=== PATIENT | female | born 1930 | race Caucasian/White ===

== ENCOUNTER 2019-07-20 20:08 | Inpatient (IN) | payer MEDICARE, MEDICAID ==
[~2019-07-20] VITALS: Ht 154.9 cm; Wt 56.2 kg
--- NOTE | 2019-07-20 20:10 | NUR ---
IV LINE ESTABLISHED, BLOOD DRAWN AND SENT TO LAB.
--- NOTE | 2019-07-20 20:12 | NUR ---
CLARA. C/O "FAMILY STATING:PT DESATURATING AT HOME 78%, PT IS AAOX1 RESPONDS TO TOUCH, ON VENT VIA TRACH, HOOKED TO MONITOR. KEPT RESTED AND COMFORTABLE, WILL CONTINUE TO MONITOR.
--- NOTE | 2019-07-20 20:16 | NUR ---
RT AT BEDSIDE FOR VENT SET UP.
[2019-07-20] MEDS ORDERED: LEVE500T9 GT (20:17)
[2019-07-20] MEDS ORDERED: ENOX40DI SUBCUT (20:18)
[2019-07-20] MEDS ORDERED: ASPI-605 GT (20:18)
[2019-07-20] MEDS ORDERED: MULT1TAB73 GT (20:19)
--- NOTE | 2019-07-20 20:25 | NUR ---
DR. SULLIVAN AT BEDSIDE FOR EVAL.
--- NOTE | 2019-07-20 20:40 | NUR ---
RT NOTE LATE ENTRY: Pt rec'd on mech vent on SIMV settings given from [employer]. Pt's pressure support adjusted to meet pt's ventilatory demand per md orders. No resp distress or sob noted. Pt sx'd for small amt of thick yellow secretions. Alarms are set and audible. Vent plugged into red outlet. Ambu bag bedside. Will continue to monitor. Addendum: 07/20/19 at 2122 by DILAN TUTTLE RT Amended: Links added.
[2019-07-20 21:03] LABS: BASOPHILS % (AUTO) 0.9 % (0.0-2.0); EOSINOPHILS % (AUTO) 4.1 % (0.0-6.0); HEMATOCRIT 32 % (33-45); HEMOGLOBIN 10.5 g/dL (11.5-14.8); LYMPHOCYTES # (AUTO) 0.9 /CMM (0.8-4.8); LYMPHOCYTES % (AUTO) 24.6 % (20.0-44.0); MEAN CORPUSCULAR HGB CONC 33 g/dl (31.0-36.0); MEAN CORPUSCULAR VOLUME 94 fL (82-100); MONOCYTES # (AUTO) 0.2 /CMM (0.1-1.30); MONOCYTES % (AUTO) 4.3 % (2.0-12.0); NEUTROPHILS # (AUTO) 2.4 /CMM (1.8-8.9); NEUTROPHILS % (AUTO) 66.1 % (43.0-81.0); PLATELET COUNT (AUTO) 228 /CMM (150-450); RED BLOOD CELL COUNT(AUTO) 3.41 MIL/uL (4.0-5.2); WHITE BLOOD COUNT (AUTO) 3.6 K/uL (4.3-11.0)
--- NOTE | 2019-07-20 21:11 | NUR ---
SHERIFFS OFFICER AT BEDSIDE FOR XRAY.
[2019-07-20 21:30] LABS: ALANINE AMINOTRANSFERASE 25 U/L (12-78); ALBUMIN 2.6 g/dL (3.4-5.0); ALKALINE PHOSPHATASE 401 U/L (46-116); ASPARTATE AMINOTRANSFERASE 29 U/L (15-37); B-TYPE NATRIURETIC PEPTIDE 4632 PG/ML (0-125); BILIRUBIN,DIRECT 0.1 mg/dL (0.0-0.2); BILIRUBIN,TOTAL 0.3 mg/dL (0.2-1.0); CARBON DIOXIDE 30 mmol/L (21-32); CHLORIDE 99 mmol/L (98-107); CREATININE 0.5 mg/dL (0.6-1.3); GLUCOSE 254 mg/dL (74-106); POTASSIUM 4.7 mmol/L (3.5-5.1); SODIUM SERUM 133 mmol/L (136-145); TOTAL PROTEIN, SERUM 8.3 g/dL (6.4-8.2); UREA NITROGEN, BLOOD 27 mg/dL (7-18)
[2019-07-20] MEDS ORDERED: VANCOMYCIN 1 GM in IV D5W 250 ML IV ONE (22:00)
[2019-07-20] MEDS ORDERED: FUROSEMIDE 40 MG/4 ML VIAL IV ONE (22:00)
[2019-07-20] MEDS ORDERED: CEFEPIME 1 GM VIAL IV ONE (22:00)
[2019-07-20] MEDS ORDERED: VANCOMYCIN 1 GM VIAL ONE (22:09)
[2019-07-20] MEDS ORDERED: CEFEPIME 1 GM VIAL ONE (22:09)
[2019-07-20] MEDS ORDERED: FUROSEMIDE 40 MG/4 ML VIAL ONE (22:09)
[2019-07-20] MEDS ORDERED: IV NS 0.9% 0 ML IV ONE (22:13)
[2019-07-20] MEDS ORDERED: CT SWABBABLE VALVE TRANS SET 1 EA INFUS.SET MC ONE (22:13)
[2019-07-20] MEDS ORDERED: IOHEXOL-350 100 ML VIAL IV ONE (22:13)
--- NOTE | 2019-07-20 22:28 | NUR ---
PT REFUSED CT ANGIOGRAM, AWARE.
--- NOTE | 2019-07-20 22:40 | NUR ---
REPORT GIVEN TO CHALINO BRYANT FOR ABELINO.
[2019-07-20] MEDS ORDERED: ONDANSETRON HCL/PF 4 MG/2 ML VIAL IVP PRN (23:00)
[2019-07-20] MEDS ORDERED: ZOLPIDEM TARTRATE 5 MG TABLET GT PRN (23:00)
[2019-07-20] MEDS ORDERED: HYDROCODONE/APAP 10/325MG 1 EA TABLET GT PRN (23:00)
[2019-07-20] MEDS ORDERED: ACETAMINOPHEN 325 MG TABLET MC PRN (23:00)
[2019-07-20] MEDS ORDERED: ENOXAPARIN SODIUM 30 MG/0.3 ML DISP.SYRIN SQ SCH (23:00)
[2019-07-20] MEDS ORDERED: MAGNESIUM HYDROXIDE 30 ML UDC PO PRN (23:00)
[2019-07-20] MEDS ORDERED: HYDROCODONE/APAP 5/325MG 1 EACH TABLET GT PRN (23:00)
[2019-07-20] MEDS ORDERED: MAG HYDROX/AL HYDROX/SIMETH 30 ML UDC PO PRN (23:00)
[2019-07-20] MEDS ORDERED: CEFEPIME 1 GM in IV D5W 50 ML IV SCH (23:00)
--- NOTE | 2019-07-20 23:00 | NUR ---
TELE/RESIDENTIAL FEE APPRAISER NOTES RECEIVED PATIENT ON A GURNEY,RT ARRIVED WITH ER NURSE ON A GURNEY ON MECHANICAL VENT WITH PRESCRIBED SETTING, ADMITING MD MARTHA IBANEZ DISCUSSED PLAN OF CARE WITH FAMILY AT THE ER AND ARRIVED ON THE UNIT WITH SOME CONCERNS FAMILY PREFERENCE TO BE TRANSFERED TOMORROW AM AT [facility] WITH MD DR. RAFL JHA. PATIETN WITH DX OF ACUTE HYPOXIIC RF AND TO RULE OUT PE. FAMILY DAUGHTER INVOLVE WITH CARE AND HAVE VERBALIZED AND INSTRUCTED TREATMENTS WITH RN AND MD. UNABLE TO HAVE SOME TEST FAMILY POSTPONED PULMONARY ANGIOGRAM WITH CONTRAST, AND MD ALSO SUGGESTED TO RULE OUT PE, A DQ/VQ SCAN WHICH PER RADIOLOGISTRANICK CAN NOT BE DONE ON A MECHANICAL DEPENDENT PATIENT, MD AND FAMILY MADE AWARE.GTUBE FEEDING STARTED WITH HOME FEEDING PROVIDED BY PATIENT, ALSO [employer] MATTRESS ORDER, INFORM NIGHT SUPERVISIOR FOR ORDER REQUEST. WOUND CHECK AND TREATMENT PROVIDED. ORDER FOR.
[2019-07-20] MEDS ORDERED: LEVALBUTEROL HCL NEB 1.25 MG/0.5 ML VIAL.NEB NEB PRN (23:30)
[2019-07-21] VITALS: BP_SYST 131; BP_SYST 69; BP_DIAS 44
--- NOTE | 2019-07-21 | NUR ---
tele/rn notes PATIENT ON TELE AT SY 78. PATIENT DAUGHTER AT BEDSIDE, INVOLVE WITH CARE, SKIN ASSESSED REQUIRING WOUND CONSULT. ALSO FOLLOW UP WITH BAGGAGE HANDLER FOR [employer] MATTRESS AND REQUESTING MEDICATION TO BED GIVEN AND MONITOIRNG BLOOD SUGAR WITH SLIDING SCALE.
[2019-07-21] MEDS ORDERED: LORAZEPAM INJ 2 MG/ML VIAL IV PRN (00:30)
[2019-07-21] MEDS ORDERED: INSULIN REGULAR, HUMAN 100 UNIT/ML 3 ML VIAL SQ PRN (03:30)
[2019-07-21] MEDS ORDERED: DEXTROSE 50%-WATER 50 ML DISP.SYRIN IV PRN ×2 (03:30→04:00)
[2019-07-21] MEDS: BLOOD SUGAR DIAGNOSTIC 1 EACH STRIP IN SCH ×4 (03:57→23:39)
[2019-07-21 04:00] VITALS: BP_SYST 110; BP_SYST 95; BP_DIAS 40; BP_DIAS 44
[2019-07-21] MEDS ORDERED: ENOXAPARIN SODIUM 30 MG/0.3 ML DISP.SYRIN SQ SCH ×2 (04:00→23:00)
--- NOTE | 2019-07-21 04:06 | NUR ---
tele/rn notes per md muñoz to change time of lovenox to be 0400 daily.
[2019-07-21] MEDS: INSULIN REGULAR, HUMAN 100 UNIT/ML 3 ML VIAL SQ PRN ×4 (04:29→23:59)
--- NOTE | 2019-07-21 05:36 | NUR ---
tele/rn notes patient requested to follow up [facility] FOR IV ANTIBIOTIC THAT CAUSES REACTION WITH SEIZURE, RN BOOK SEWING MACHINE OPERATOR MICHELLE REPORTED UNABLE TO DETERMINE , DISCUSSED WITH FAMILY AND MADE AWARE. PATIENT ALSO REQUESTED FOR SPUTUM SAMPLE AND MD CONTACTED AWAITING FOR ORDER.
[2019-07-21] MEDS ORDERED: BLOOD SUGAR DIAGNOSTIC 1 EACH STRIP IN SCH (06:00)
[2019-07-21] MEDS ORDERED: FEE PK DOSING 1 MIN EA MC ONE (06:28)
[2019-07-21] MEDS ORDERED: ALBUTEROL HALF STRENGTH 1.25 MG/3 ML VIAL.NEB NEB PRN (06:30)
[2019-07-21] MEDS ORDERED: LEVALBUTEROL HCL NEB 1.25 MG/0.5 ML VIAL.NEB NEB PRN (06:30)
--- NOTE | 2019-07-21 07:10 | NUR ---
RN NOTE FAMILY REQUESTING TRACH CARE. RT PAGED.
[2019-07-21 07:17] LABS: CHOLESTEROL 148 mg/dL (<200); HDL CHOLESTEROL 48 mg/dL (40-60); LDL 86 mg/dL (0-99); THYROID STIMULATING HORMONE 2.739 uIU/mL (0.358-3.74); TRIGLYCERIDES 82 mg/dL (30-150)
--- NOTE | 2019-07-21 07:22 | NUR ---
tele/rn notes report given to am rn for carmina.
[2019-07-21 08:00] VITALS: BP_SYST 100; BP_SYST 136; BP_DIAS 36; BP_DIAS 43
[2019-07-21] MEDS ORDERED: CEFEPIME 1 GM in IV NS 0.9% 50 ML IV SCH (08:00)
--- NOTE | 2019-07-21 08:10 | NUR ---
RN NOTE FAMILY CONCERNED ABOUT LOW B/P. MADE AWARE.
[2019-07-21 08:13] LABS: BASOPHILS % (AUTO) 0.9 % (0.0-2.0); EOSINOPHILS % (AUTO) 5.3 % (0.0-6.0); HEMATOCRIT 27 % (33-45); HEMOGLOBIN 8.8 g/dL (11.5-14.8); LYMPHOCYTES # (AUTO) 1.2 /CMM (0.8-4.8); LYMPHOCYTES % (AUTO) 24.9 % (20.0-44.0); MEAN CORPUSCULAR HGB CONC 33 g/dl (31.0-36.0); MEAN CORPUSCULAR VOLUME 92 fL (82-100); MONOCYTES # (AUTO) 0.5 /CMM (0.1-1.30); MONOCYTES % (AUTO) 11.4 % (2.0-12.0); NEUTROPHILS # (AUTO) 2.8 /CMM (1.8-8.9); NEUTROPHILS % (AUTO) 57.5 % (43.0-81.0); PLATELET COUNT (AUTO) 179 /CMM (150-450); WHITE BLOOD COUNT (AUTO) 4.8 K/uL (4.3-11.0)
[2019-07-21] MEDS: LEVETIRACETAM SOL (5 ML) 100 MG/ML UDC PO SCH ×2 (08:21→21:19)
[2019-07-21] MEDS: ASPIRIN 81 MG TAB.CHEW GT SCH (08:21)
[2019-07-21] MEDS: CEFEPIME 2 GM in IV D5W 100 ML IV SCH ×2 (08:28→20:15)
[2019-07-21] MEDS: MULTIVITAMINS,THERAGRAN 1 UDTAB TABLET GT SCH (08:28)
--- NOTE | 2019-07-21 08:30 | NUR ---
RN NOTE FAMILY REQUESTING TRANSFER TO [facility]. CASE MANAGEMENT CONTACTED AND LYNETTE CAME TO TALK WITH FAMILY.
[2019-07-21 08:33] LABS: BAND % (MANUAL) 1 % (0.0-5.0); EOSINOPHILS % (MANUAL) 5 % (0-4); LYMPHOCYTES % (MANUAL) 28 % (16-48); MONOCYTES % (MANUAL) 7 % (0-11.0); NEUTROPHILS % (MANUAL) 59 (42-76)
[2019-07-21 08:52] LABS: CALCIUM, SERUM 8.6 mg/dL (8.5-10.1); CARBON DIOXIDE 28 mmol/L (21-32); CHLORIDE 99 mmol/L (98-107); CREATININE 0.5 mg/dL (0.6-1.3); GLUCOSE 123 mg/dL (74-106); MAGNESIUM 2.1 mg/dL (1.8-2.4); PHOSPHORUS 3.7 mg/dL (2.5-4.9); POTASSIUM 4.3 mmol/L (3.5-5.1); SODIUM SERUM 132 mmol/L (136-145); UREA NITROGEN, BLOOD 29 mg/dL (7-18)
[2019-07-21] MEDS ORDERED: MULTIVITAMIN LIQ 5 ML UDC GT SCH (09:00)
--- NOTE | 2019-07-21 09:43 | NUR ---
C=S SAMPLE TAKEN AND SENT TO LAB. RN NOTIFIED Addendum: 07/21/19 at 0944 by PATRICK RUBI RT Amended: Links added.
--- NOTE | 2019-07-21 10:23 | NUR ---
RN NOTE BLOOD PRESSURE REPEATED. 101/46
[2019-07-21 12:00] VITALS: BP 114/61
[2019-07-21 16:00] VITALS: BP 126/70
[2019-07-21] MEDS: VANCOMYCIN 1 GM in IV D5W 250 ML IV SCH (17:00)
--- NOTE | 2019-07-21 17:50 | NUR ---
RN NOTE SPOKE WITH MD. HE WILL CALL FAMILY TO DISCUSS ULTRASOUND AND LAB RESULTS.
--- NOTE | 2019-07-21 19:22 | NUR ---
received with family at bedside, with orders for coronary chest angiogram but physician still has to talk to the daughter for the consent, Addendum: 07/21/19 at 3 by OSMAN MORRISON RN patient is on lovenox ordered dalsarah sq as ordered
[2019-07-21 20:00] VITALS: BP 110/62
--- NOTE | 2019-07-21 23:01 | NUR ---
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 VINCENZO Beltrán informed and will orders, informed patient is positive for dvt to the lower extremties and is already on lovenox dose and adjusted by pharmacy as therapeutic dose for patient , will orders, oinfored that the patient cannot have blood draw, blood pressure and tourniquet above the elbow ,will remove the iv cannla to the left upper arm,
[2019-07-22] VITALS: BP_SYST 114; BP_SYST 130; BP_DIAS 61; BP_DIAS 65
--- NOTE | 2019-07-22 00:38 | NUR ---
iv cannla to the left upper arm dicontinued as the daughter Ankita informed that the patient has bilateral upper extremeties dvt as history, and done, discontinued dressing applied to the site,
[2019-07-22 04:00] VITALS: BP 152/78
--- NOTE | 2019-07-22 05:17 | NUR ---
RT NOTE PT REC'D TRACHED ON [facility] VENT ON NOTED SETTINGS. NO RESP DISTRESS OR SOB NOTED. SX'D FOR THICK MOD AMT OF PALE YELLOW SECRETIONS. TRACH PATENT AND SECURED. ALARMS ARE SET AND AUDIBLE. VENT PLUGGED INTO RED OUTLET. AMBU BAG BEDSIDE. Addendum: 07/22/19 at 0518 by DILAN TUTTLE RT Amended: Links added.
[2019-07-22] MEDS: BLOOD SUGAR DIAGNOSTIC 1 EACH STRIP IN SCH ×4 (06:07→23:55)
--- NOTE | 2019-07-22 07:00 | NUR ---
TELE INITIAL NOTES PATIENT RECEIVED BY PM SHIFT. AM CARE PROVIDED PATIENT VENTED WITH O2 OF 100 % PATIENT PATIENT IS WOKE WITH TOUCH AND NAME PATIENT IS CURRENTLY V PACE . S1/ S2 PRESEND PATIENT IS CURRENT BEDFAST. PATIENTS WOUNDS WERE CHANGED AND KEPT DRY AND CLEAN . PATIENT CURRENTLY ON 85 ML /PER GTUBE PER FAMILY REQUEST. PATIENT HAS CHRISTOPHER 18 G. DURING SHIFT PATIENT WAS GIVEN MED ONLY APPROVED BY DAUGHTER AND IS AWARE OF CARE PLAN. WILL CONTINUE TO MONITOR
[2019-07-22 07:06] LABS: BASOPHILS % (AUTO) 0.8 % (0.0-2.0); EOSINOPHILS % (AUTO) 6.7 % (0.0-6.0); HEMATOCRIT 27 % (33-45); HEMOGLOBIN 8.9 g/dL (11.5-14.8); LYMPHOCYTES # (AUTO) 0.9 /CMM (0.8-4.8); LYMPHOCYTES % (AUTO) 22.3 % (20.0-44.0); MEAN CORPUSCULAR HGB CONC 34 g/dl (31.0-36.0); MEAN CORPUSCULAR VOLUME 92 fL (82-100); MONOCYTES # (AUTO) 0.3 /CMM (0.1-1.30); MONOCYTES % (AUTO) 8.9 % (2.0-12.0); NEUTROPHILS # (AUTO) 2.3 /CMM (1.8-8.9); NEUTROPHILS % (AUTO) 61.3 % (43.0-81.0); PLATELET COUNT (AUTO) 162 /CMM (150-450); RED BLOOD CELL COUNT(AUTO) 2.87 MIL/uL (4.0-5.2); WHITE BLOOD COUNT (AUTO) 3.8 K/uL (4.3-11.0)
[2019-07-22 07:21] LABS: CALCIUM, SERUM 8.3 mg/dL (8.5-10.1); CARBON DIOXIDE 30 mmol/L (21-32); CHLORIDE 96 mmol/L (98-107); CREATININE 0.5 mg/dL (0.6-1.3); GLUCOSE 151 mg/dL (74-106); MAGNESIUM 2.1 mg/dL (1.8-2.4); PHOSPHORUS 3.9 mg/dL (2.5-4.9); POTASSIUM 4.7 mmol/L (3.5-5.1); SODIUM SERUM 130 mmol/L (136-145); UREA NITROGEN, BLOOD 28 mg/dL (7-18)
--- NOTE | 2019-07-22 07:30 | NUR ---
TELE CLOSING NOTES PATIENT RECIVED BY ON PM SHIFT. PATIENT IS AWAKE AND FAMILY IS AT BED SIDE. PATIENT IS VENTED. PATIENT DOES MAKE GRIMING FACIAL FEATURES, WHEN PATIENT IS MOVED OR ADJUSTED. PATIENT IS CURRENTLY RECEIVING GTUBE FEEDING 85 ML/ HR . WOUND NURSE WAS ALSO PRESENT DURING AM SHIFT.PATIENT WAS REPOSITIONED Q2 HOURS WOUND CHANGED, KEPT DRY AND CLEAN PATIENT FAMILY IS AT BEDSIDE. BED IS IN LOW POSITION AND CALL LIGHT WITH IN REACH . SAFETY MAINTAINED Addendum: 07/22/19 at 2039 by BLUE RAMIREZ RN WRONG TIME
--- NOTE | 2019-07-22 07:31 | NUR ---
RT Pt received trached on mechanical ventilation with noted settings. Pt is awake and responds to stimuli when suctioned. Vent is plugged into red outlet. Equal bilateral breath sounds and chest rise noted. No SOB or respiratory distress noted at this time. Addendum: 07/22/19 at 0758 by SOL GREENE RT Amended: Links added.
[2019-07-22 08:00] VITALS: BP 132/55
[2019-07-22] MEDS: CEFEPIME 2 GM in IV D5W 100 ML IV SCH ×2 (08:22→22:59)
--- NOTE | 2019-07-22 08:27 | NUR ---
WOUND CARE CONSULT: PT PRESENTS WITH MULTIPLE WOUNDS PRESENT ON ADMISSION INCLUDING SACRAL WOUND AND LEG AND FOOT WOUNDS. RECOMMENDATIONS MADE FOR SKIN PROTECTION. DISCUSSED WITH NURSING STAFF. PT ON ADIA ISOFLEX LOW AIRLOSS BED. RECOMMEND DPM CONSULT AND SURGICAL CONSULT DR CAMPOVERDE AWARE OF DPM AND SURGICAL CONSULT REQUESTS. WILL SEE PRN. TAM IN AGREEMENT WITH PLAN OF CARE. DEFER TO SURGICAL TEAMS FOR WOUND TREATMENT PLAN. CURRENT MARIAH SCORE IS 12. Addendum: 07/22/19 at 0830 by STIVEN VIEIRA WNDNU Amended: Links added.
[2019-07-22] MEDS ORDERED: Z GUARD REMEDY 2 OZ OINT TP PRN (08:30)
[2019-07-22] MEDS: ASPIRIN 81 MG TAB.CHEW GT SCH (08:38)
[2019-07-22] MEDS: MULTIVITAMINS,THERAGRAN 1 UDTAB TABLET GT SCH (08:38)
[2019-07-22] MEDS: LEVETIRACETAM SOL (5 ML) 100 MG/ML UDC PO SCH ×2 (08:38→22:57)
[2019-07-22] MEDS ORDERED: ENOXAPARIN SODIUM 30 MG/0.3 ML DISP.SYRIN SQ SCH (09:00)
[2019-07-22] MEDS: Z GUARD REMEDY 2 OZ OINT TP SCH (09:07)
[2019-07-22] MEDS: VANCOMYCIN 1 GM in IV D5W 250 ML IV SCH (10:53)
[2019-07-22] MEDS: [UNRECOGNIZED DRUG - OTHER] GT PRN ×2 (11:33→19:33)
[2019-07-22 12:00] VITALS: BP 123/49
[2019-07-22] MEDS ORDERED: RIVAROXABAN 15 MG TABLET PO SCH ×2 (12:00→17:00)
[2019-07-22 12:04] LABS: ABG BASE EXCESS 2.1 mmol/L; ABG OXYGEN SATURATION 98.1 % (92.0-98.5); ABG PCO2 34.7 mmHg (35.0-45.0); ABG PH 7.483 (7.350-7.450); AaDO2 45.1 mmHg; COHb 0.2 % (0.5-1.5); MetHb 0.5 % (0.0-1.5); O2Hb 97.4 % (94.0-97.0); PEEP,BG 5 cm H2O; SITE, ABG Left Radial; VENT MODE, BG SIMV 10 / PS 15; VT, ABG 400 mL
[2019-07-22] MEDS: HYDROGEL DRESSING 90 GM TUBE TP SCH (12:43)
[2019-07-22] MEDS: INSULIN REGULAR, HUMAN 100 UNIT/ML 3 ML VIAL SQ PRN ×2 (12:49→21:03)
--- NOTE | 2019-07-22 13:55 | NUR ---
Social service consult requested by wound RN Lashawn due to pt. having pressure ulcers and residing at home. SW left a voicemail message for pt's daughter Ankita requesting a callback.
[2019-07-22 16:00] VITALS: BP 130/58
--- NOTE | 2019-07-22 17:07 | NUR ---
RN NOTE DAUGHTER LUIS AT BEDSIDE, REFUSING WOUND DEBRIDEMENT OF THE SACRAL
--- NOTE | 2019-07-22 17:12 | NUR ---
RN NOTE DAUGHTER REQUESTED TO TALK TO DR ALLEN - [facility] [employer] WAITING FOR A CALL BACK. DAUGHTER BROUGHT 2 MEDS: L-CARNITINE 500 MG ONCE DAILY AND COLOSTRUM PRO POWDER. WILL SEND TO PHARMACY
--- NOTE | 2019-07-22 17:15 | NUR ---
RN NOTE PER DAUGHTER, THE ONLY TX FOR THE PATIENT'S WOUND IS MEDIHONEY. WILL LET WOUND CARE AWARE
--- NOTE | 2019-07-22 17:51 | NUR ---
RN NOTE PATIENT'S DAUGHTER JUST DISCLOSED THAT THE PATIENT IS ALLERGIC TO XARELTO, PLAVIX, ELIQUIS AND NORCO. PHARMACY MADE AWARE. ADDED TO PATIENT'S ALLERGY LIST ALSO, DAUGHTER IS REQUESTING TO NOT ADMINISTER ANY PAIN MEDICATIONS, NO SLEEPING MEDS, NO ANTI ANXIETY MEDS WELL.
--- NOTE | 2019-07-22 17:57 | NUR ---
RN NOTE TRIED REACHING DIETARY TO CONFIRM IF PATIENT CAN CONTINUE TAKING COLOSTRUM PRO. NO ANSWER, WILL ENDORSE TO NOC SHIFT
--- NOTE | 2019-07-22 18:15 | NUR ---
RN NOTE PER DR ALLEN, AUDIE XARELTO AND CONTINUE TAKING LOVENOX THERAPEUTIC DOSE. CALLED PHARMACY, ORDERED LOVENOX 60MG X2/DAY. PHARMACY SAID THEY WILL EDIT THE DOSE TO 50 MG FOR THERAPEUTIC DOSE
--- NOTE | 2019-07-22 19:25 | NUR ---
RN NOTE DAUGHTER REQUESTING TO DC AMBIEN AND ATIVAN (FOR AGITATION AND SEIZURE). PAGED DR ALLEN TO GET A DC ORDER. WAITING FOR A PAGE BACK
--- NOTE | 2019-07-22 19:30 | NUR ---
TELE CLOSING NOTES PATIENT RECIVED BY ON PM SHIFT. PATIENT IS AWAKE AND FAMILY IS AT BED SIDE. PATIENT IS VENTED. PATIENT DOES MAKE GRIMING FACIAL FEATURES, WHEN PATIENT IS MOVED OR ADJUSTED. PATIENT IS CURRENTLY RECEIVING GTUBE FEEDING 85 ML/ HR . WOUND NURSE WAS ALSO PRESENT DURING AM SHIFT.PATIENT WAS REPOSITIONED Q2 HOURS WOUND CHANGED, KEPT DRY AND CLEAN PATIENT FAMILY IS AT BEDSIDE.
[2019-07-22 20:00] VITALS: BP_SYST 131; BP_DIAS 101; BP_DIAS 89
[2019-07-22] MEDS: ENOXAPARIN SODIUM 60 MG/0.6 ML DISP.SYRIN SQ SCH (22:58)
[2019-07-23] VITALS (7 sets, daily range): BP systolic 91–170; BP diastolic 37–72
[2019-07-23] MEDS: INSULIN REGULAR, HUMAN 100 UNIT/ML 3 ML VIAL SQ PRN ×4 (00:10→23:24)
[2019-07-23] MEDS ORDERED: MELATONIN 10 MG PO PRN (01:00)
[2019-07-23] MEDS: VANCOMYCIN 1 GM in IV D5W 250 ML IV SCH ×2 (06:21→22:08)
[2019-07-23 06:44] LABS: BASOPHILS % (AUTO) 0.8 % (0.0-2.0); HEMATOCRIT 28 % (33-45); HEMOGLOBIN 9.4 g/dL (11.5-14.8); LYMPHOCYTES # (AUTO) 1.2 /CMM (0.8-4.8); LYMPHOCYTES % (AUTO) 26.3 % (20.0-44.0); MEAN CORPUSCULAR HGB CONC 34 g/dl (31.0-36.0); MEAN CORPUSCULAR VOLUME 91 fL (82-100); MONOCYTES # (AUTO) 0.8 /CMM (0.1-1.30); MONOCYTES % (AUTO) 17.2 % (2.0-12.0); NEUTROPHILS # (AUTO) 2.2 /CMM (1.8-8.9); NEUTROPHILS % (AUTO) 49.7 % (43.0-81.0); PLATELET COUNT (AUTO) 151 /CMM (150-450); RED BLOOD CELL COUNT(AUTO) 3.06 MIL/uL (4.0-5.2); WHITE BLOOD COUNT (AUTO) 4.5 K/uL (4.3-11.0)
[2019-07-23] MEDS: BLOOD SUGAR DIAGNOSTIC 1 EACH STRIP IN SCH ×4 (06:52→23:08)
[2019-07-23 07:00] LABS: CALCIUM, SERUM 8.4 mg/dL (8.5-10.1); CARBON DIOXIDE 29 mmol/L (21-32); CHLORIDE 98 mmol/L (98-107); CREATININE 0.4 mg/dL (0.6-1.3); GLUCOSE 123 mg/dL (74-106); MAGNESIUM 2.2 mg/dL (1.8-2.4); PHOSPHORUS 3.9 mg/dL (2.5-4.9); POTASSIUM 4.9 mmol/L (3.5-5.1); SODIUM SERUM 131 mmol/L (136-145); UREA NITROGEN, BLOOD 28 mg/dL (7-18)
--- NOTE | 2019-07-23 07:30 | NUR ---
TELE/RN OPENING NOTES RECEIVED PATIENT IN BED RESTING COMFORTABLY. PATIENT ABLE TO RESPOND TO TACTILE STIMULI. NO PAIN OR ACUTE DISTRESS AT THIS TIME. RESPIRATION EVEN AND UNLABORED. SKIN IS DRY WARMT TO TOUCH. HOB ELEVATED AT ALL TIMES. PATIENT ABLE TO TOLERATE CURRENT VENT SETTINGS WELL. NOTED WITH GTF. NO RESIDUAL. ABLE TO TOLERATE FEEDING WELL. IV SITES INTACT AND PATED. FLUSHING WELL. NO S/S OF INFECTION OR INFILTRATION. ALL NEEDS ANTICIPATED. CALL LIGHT WITHIN REACHED. BED LOCKED AND IN LOWEST POSITION. SAFETY MAINTAINED. WILL CONTINUE TO MONITOR CLOSELY.
[2019-07-23 07:40] LABS: EOSINOPHILS % (MANUAL) 5 % (0-4); LYMPHOCYTES % (MANUAL) 25 % (16-48); MONOCYTES % (MANUAL) 19 % (0-11.0); NEUTROPHILS % (MANUAL) 51 (42-76)
[2019-07-23] MEDS: CEFEPIME 2 GM in IV D5W 100 ML IV SCH ×2 (08:08→20:27)
[2019-07-23] MEDS: MULTIVITAMINS,THERAGRAN 1 UDTAB TABLET GT SCH (08:37)
[2019-07-23] MEDS: ASPIRIN 81 MG TAB.CHEW GT SCH (08:37)
[2019-07-23] MEDS: LEVETIRACETAM SOL (5 ML) 100 MG/ML UDC PO SCH ×2 (08:37→21:32)
[2019-07-23] MEDS: Z GUARD REMEDY 2 OZ OINT TP SCH (08:39)
[2019-07-23] MEDS: HYDROGEL DRESSING 90 GM TUBE TP SCH (08:41)
[2019-07-23] MEDS: ENOXAPARIN SODIUM 60 MG/0.6 ML DISP.SYRIN SQ SCH ×2 (08:44→21:32)
[2019-07-23] MEDS: THERAHONEY GEL 1.5 OZ TUBE TP SCH (08:45)
[2019-07-23] MEDS ORDERED: RIVAROXABAN 15 MG TABLET PO SCH (09:00)
--- NOTE | 2019-07-23 09:47 | NUR ---
RT PT RECEIVED TRACH'D ON [facility] VENT WITH SETTINGS PER MD ORDER. DEEP SEA DIVER DONE. VENT PLUGGED INTO RED OUTLET. SPARE TRACH AND AMBU BAG AT BEDSIDE. SUCTIONED SMALL AMOUNTS OF THICK, PALE YELLOW SECRETIONS. NO SIGNS OF DISTRESS NOTED. WILL CONTINUE TO MONITOR FOR ANY CHANGES. Addendum: 07/23/19 at 1711 by ALISHA JOSEPH RT Amended: Links added.
--- NOTE | 2019-07-23 15:15 | NUR ---
TELE/RN NOTES SENT A MESSAGE TO DR. ALLEN REGARDING DAUGHTER AT BEDSIDE WANTING TO TALK TO HIM. STILL AWAITING CALL BACK. PATIENT CONTINUES TO REMAIN IN STABLE CONDITION.L WILL CONTINUE TO MONITOR.
--- NOTE | 2019-07-23 16:26 | NUR ---
TELE/RN NOTES SENT ANOTHER MESSAGE TO DR. ALLEN REGARDING DAUGHTER WANTING TO TALK TO HIM. I SENT THE NUMBER OF DAUGHTER LUIS [phone]. ACCORDING TO DAUGHTER SHE WILL BE WAITING FOR HIS CALL.
--- NOTE | 2019-07-23 16:50 | NUR ---
TELE/RN NOTES SPOKE TO THE DAUGHTER REGARDING THE INSTRUCTIONS OF THE MEDICATION THAT SHE WAS TAKING AT HOME. L-CARTININE WAS ORDERED PER DAUGHTER THAT WAS APPROVED BY DR. ALLEN. ACCORDING TO DAUGHTER SHE WILL PROVIDED THE MELATONIN. DAUGHTER WILL ALSO VERIFY THE INSTRUCTIONS OF THE COLOSTRUM AND AMOUR THYROID ONCE SHE DOES WE WILL PUT AN ORDER FOR IT. MEDICATIONS WERE ALREADY APPROVED BY DR. ALLEN WELL.
--- NOTE | 2019-07-23 16:55 | NUR ---
TELE/RN NOTES INFORMED DAUGHTER THAT WE NEED MORE OF THE [employer] BOX. PER DAUGHTER SHE WILL BRING MORE TOMORROW.
--- NOTE | 2019-07-23 17:27 | NUR ---
TELE/RN NOTES PATIENT DAUGHTER SPOKE TO DR. NGUYEN ON THE PHONE. ACCORDING TO HER SHE WAS ABLE TO ASK HIM ALL THE QUESTIONS THAT SHE HAD. PATIENT CONTINUES TO REMAIN IN STABLE CONDITION. WILL CONTINUE TO MONITOR CLOSELY.
--- NOTE | 2019-07-23 18:20 | NUR ---
RN NOTE: PATIENT'S DAUGHTER CLEMENT CAME UP TO THE NURSING STATION AND WAS VERBALIZING A LOT OF DEMANDS REGARDING THE CONCERNS FOR TRANSFER TO [facility] AND FOR THE FREE WATER FLUSHES. DR. ALLEN WAS INFORMED ABOUT IT AND MD WAS AWARE OF THE PATIENT'S CURRENT SODIUM 131 AND MD WAS INFORMED OF THE SPECIAL TUBE FEEDING REQUEST OF THE DAUGHTER WHICH INCLUDED [address] ALLEN HAD NO NEW ORDER. CALLED AND SPOKE WITH THE CHIP MIXER MELQUIADES AND INFORMED HIM TO SPEAK WITH THE PATIENT ABOUT THE INQUIRY FOR THE [facility] TRANSFER. PER CHIP M[employer]ER MELQUIADES, IT WAS ALREADY DECLINED, BUT THEY WILL SEND AN APPEAL ABOUT IT. LABORATORY CHEMIST ALEXA AND MELQUIADES WENT TO THE BEDSIDE AND SPOKE WITH THE PATIENT'S DAUGHTER CLEMENT REGARDING THE PLAN.
--- NOTE | 2019-07-23 19:30 | NUR ---
FAST FOOD SERVICES MANAGER OPENING NOTE RECEIVED PATIENT OBTUNDED. PATIENT IS VENTILATOR DEPENDENT. WITH PORTEX #8, AC 10, TV 400, FIO1 30%, AND PEEP 5. PATIENT SEEMS TO BE TOLERATING WELL. PATIENT HAS GTUBE FEEDING WITH A SPECIAL FORMULA RUNNING AT 8ML/HR. IV ON THE LT HAND S/L #24G. ALL SAFETY PRECAUTIONS HAVE BEEN APPLIED. VENTILATOR PLUGGED INTO RED OUTLET. WILL CONTINUE TO MONITOR
--- NOTE | 2019-07-23 19:32 | NUR ---
TELE/RN CLOSING NOTES PATIENT CONTINUES TO REMAIN IN STABLE CONDITION THROUGHOUT THE SHIFT. PROVIDED COMFORT AND SAFETY. HOB ELEVATED AT ALL TIMES. PATIENT ABLE TO TOLERATE CURRENT VENT SETTINGS WELL. NOTED WITH GTF. NO RESIDUAL. ABLE TO TOLERATE FEEDING WELL. IV SITES INTACT AND PATED. FLUSHING WELL. NO S/S OF INFECTION OR INFILTRATION. ALL NEEDS ANTICIPATED. CALL LIGHT WITHIN REACHED. BED LOCKED AND IN LOWEST POSITION. SAFETY MAINTAINED. WILL CONTINUE TO MONITOR CLOSELY. ENDORSED TO PM NURSE FOR ABELINO. Addendum: 07/23/19 at 1937 by KATHY MARS RN TELE/RN CLOSING NOTES PATIENT CONTINUES TO REMAIN IN STABLE CONDITION THROUGHOUT THE SHIFT. PROVIDED COMFORT AND SAFETY. HOB ELEVATED AT ALL TIMES. PATIENT ABLE TO TOLERATE CURRENT VENT SETTINGS WELL. NOTED WITH GTF. NO RESIDUAL. ABLE TO TOLERATE FEEDING WELL. IV SITES INTACT AND PATED. FLUSHING WELL. NO S/S OF INFECTION OR INFILTRATION. ENDORSED TO PM NURSE WELL TO COLLECT URINE. ALL NEEDS ANTICIPATED. CALL LIGHT WITHIN REACHED. BED LOCKED AND IN LOWEST POSITION. SAFETY MAINTAINED. WILL CONTINUE TO MONITOR CLOSELY. ENDORSED TO PM NURSE FOR ABELINO.
--- NOTE | 2019-07-23 19:51 | NUR ---
PT RECEIVED TRACH PORTEX 8 ON MECH VENT WITH NOTED SETTINGS. PT IS OBTUNTED . SX'D AND LAVAGED NEEDED. UNIT OPERATOR DONE. VENT ALARMS SET AND AUDIBLE. AMBU BAG AT BEDSIDE. TRACH SECURE. NO RESPIRATORY DISTRESS NOTED AT THIS TIME. WILL CONTINUE TO MONITOR.
[2019-07-23] MEDS: [UNRECOGNIZED DRUG - OTHER] GT PRN (21:20)
[2019-07-24] VITALS: BP 136/64
[2019-07-24 04:00] VITALS: BP 132/71
[2019-07-24] MEDS: INSULIN REGULAR, HUMAN 100 UNIT/ML 3 ML VIAL SQ PRN ×3 (05:23→18:18)
[2019-07-24] MEDS: BLOOD SUGAR DIAGNOSTIC 1 EACH STRIP IN SCH ×3 (05:50→18:15)
[2019-07-24 06:25] LABS: BASOPHILS % (AUTO) 0.9 % (0.0-2.0); EOSINOPHILS % (AUTO) 6.3 % (0.0-6.0); HEMATOCRIT 28 % (33-45); HEMOGLOBIN 9.6 g/dL (11.5-14.8); LYMPHOCYTES # (AUTO) 0.9 /CMM (0.8-4.8); MEAN CORPUSCULAR HGB CONC 34 g/dl (31.0-36.0); MEAN CORPUSCULAR VOLUME 91 fL (82-100); MONOCYTES # (AUTO) 0.4 /CMM (0.1-1.30); MONOCYTES % (AUTO) 11.9 % (2.0-12.0); NEUTROPHILS # (AUTO) 1.9 /CMM (1.8-8.9); NEUTROPHILS % (AUTO) 54.9 % (43.0-81.0); PLATELET COUNT (AUTO) 177 /CMM (150-450); RED BLOOD CELL COUNT(AUTO) 3.09 MIL/uL (4.0-5.2); WHITE BLOOD COUNT (AUTO) 3.4 K/uL (4.3-11.0)
[2019-07-24 06:47] LABS: THYROID STIMULATING HORMONE 3.299 uIU/mL (0.358-3.74); URIC ACID 5.2 mg/dL (2.6-7.2)
[2019-07-24 07:06] LABS: CALCIUM, SERUM 8.7 mg/dL (8.5-10.1); CARBON DIOXIDE 27 mmol/L (21-32); CHLORIDE 98 mmol/L (98-107); CREATININE 0.5 mg/dL (0.6-1.3); GLUCOSE 159 mg/dL (74-106); MAGNESIUM 2.3 mg/dL (1.8-2.4); PHOSPHORUS 3.3 mg/dL (2.5-4.9); POTASSIUM 4.8 mmol/L (3.5-5.1); SODIUM SERUM 128 mmol/L (136-145); UREA NITROGEN, BLOOD 25 mg/dL (7-18)
--- NOTE | 2019-07-24 07:07 | NUR ---
FERRY BOAT CAPTAIN CLOSING NOTE PATIENT IN BED TOLERATING VENT WELL WITH NO SIGNS OF SOB. FEEDINGS ARE BEING TOLERATED WITH LITTLE RESIDUAL. ALL SAFETY PRECAUTIONS HAVE BEEN APPLIED. ENDORSED PATIENT TO MORNING SHIFT NURSE FOR ABELINO.
--- NOTE | 2019-07-24 07:10 | NUR ---
TELE/RN OPENING NOTES RECEIVED REPORT FROM [facility] SHIFT NURSE. PT IN BED, ON VENT, TOLERATING VENT SETTINGS WELL, RESPIRATIONS EVEN AND UNLABORED, NO SIGNS OF RESPIRATORY DISTRESS NOTED. HOB ELEVATED. GTUBE FEEDING INFUSING AT 85CC/HR, PT TOLERATING FEEDING WELL, NO RESIDUAL. IV SITE ON RIGHT HAND G22 PATENT, INTACT, WITH SALINE LOCK. BED IN LOW POSITION, LOCKED, CALL LIGHT WITHIN REACH.
[2019-07-24] MEDS: CEFEPIME 2 GM in IV D5W 100 ML IV SCH ×2 (07:49→20:01)
[2019-07-24 08:00] VITALS: BP 131/50
[2019-07-24 08:07] LABS: URINE SODIUM, RANDOM 19 mmol/l (40-220)
[2019-07-24] MEDS: LEVETIRACETAM SOL (5 ML) 100 MG/ML UDC PO SCH ×2 (08:15→22:15)
[2019-07-24] MEDS: MULTIVITAMINS,THERAGRAN 1 UDTAB TABLET GT SCH (08:15)
[2019-07-24] MEDS: ASPIRIN 81 MG TAB.CHEW GT SCH (08:15)
[2019-07-24] MEDS: ENOXAPARIN SODIUM 60 MG/0.6 ML DISP.SYRIN SQ SCH ×2 (08:16→22:16)
[2019-07-24] MEDS: HYDROGEL DRESSING 90 GM TUBE TP SCH (08:16)
[2019-07-24] MEDS: Z GUARD REMEDY 2 OZ OINT TP SCH (08:16)
[2019-07-24] MEDS: THERAHONEY GEL 1.5 OZ TUBE TP SCH (08:16)
[2019-07-24 08:20] LABS: OSMOLALITY,URINE 219 mOS/kg (340-1090)
--- NOTE | 2019-07-24 11:20 | NUR ---
CALLED PT'S DAUGHTER CLEMENT TO OBTAIN PERMISSION TO PERFORM EKG, LEFT VOICEMAIL WITH CALL BACK NUMBER
[2019-07-24 12:00] VITALS: BP_SYST 111; BP_SYST 112; BP_DIAS 38; BP_DIAS 62
--- NOTE | 2019-07-24 12:43 | NUR ---
RECEIVED CALL BACK FROM DAUGHTER CLEMENT GIVING PERMISSION FOR EKG
[2019-07-24 16:00] VITALS: BP_SYST 117; BP_DIAS 49; BP_DIAS 54
[2019-07-24] MEDS: VANCOMYCIN 1 GM in IV D5W 250 ML IV SCH (16:09)
[2019-07-24] MEDS: CARNITINE 500 MG GT SCH (16:20)
--- NOTE | 2019-07-24 17:47 | NUR ---
IV SITE ON RIGHT HAND G22 NOT PATENT, REMOVED IV, APPLIED DRESSING AND PRESSURE, ATTEMPTED IV INSERTION ON LEFT HAND AND LEFT FOREARM, BOTH UNSUCCESSFUL. CALLED ICU NURSE ULISES RN- ATTEMPTED, UNSUCCESSFUL. CALLED DAUGHTER CLEMENT TO SEE IF DAUGHTER WOULD BE WILLING TO CONSIDER POSSIBLE MIDLINE INSERTION- PT'S DAUGHTER ORIGINALLY STATED SHE DOES NOT WANT ANY IV SITES ABOVE ELBOWS. NO ANSWER TO PHONE CALL, VOICE MAILBOX FULL, WILL ATTEMPT TO CALL AGAIN.
--- NOTE | 2019-07-24 17:56 | NUR ---
DAUGHTER CLEMENT CALLED BACK- STATED SHE DOES NOT WANT ANY MIDLINE OR PICC LINE INSERTION ON HER MOTHER. SAID TO ATTEMPT IV SITE INSERTIONS UNTIL SUCCESSFUL WITH IV FINDER AND TO FLUSH EACH G TUBE MEDICATION WITH SUFFICIENT AMOUNT OF WATER- BELIEVES HER MOTHER IS DEHYDRATED.
--- NOTE | 2019-07-24 18:00 | NUR ---
IV SITE INSERTED ON RIGHT FOREARM G22, IV SITE PATENT, INTACT, SECURED WITH CENTRAL LINE DRESSING.
--- NOTE | 2019-07-24 19:21 | NUR ---
TELE/RN CLOSING NOTES PT IN BED, ON VENT, TOLERATING VENT SETTINGS WELL, RESPIRATIONS EVEN AND UNLABORED, NO SIGNS OF RESPIRATORY DISTRESS NOTED. HOB ELEVATED. GTUBE FEEDING INFUSING AT 85CC/HR, PT TOLERATING FEEDING WELL, NO RESIDUAL. IV SITE ON RIGHT FOREARM G22 PATENT, INTACT. BED IN LOW POSITION, LOCKED, CALL LIGHT WITHIN REACH. ENDORSED TO NOC SHIFT NURSE.
--- NOTE | 2019-07-24 19:43 | NUR ---
ANN MARIE/STUDENT LIFE DEAN RECEIVED REPORT FROM DAY SHIFT NURSE. SEE FLOWSHEET FOR ASSESSMENT. THERE ARE A COUPLE SKIN ISSUES THAT PT HAS, WHICH IS ADDRESSED ON FLOWSHEET ALONG WITH THE INTERVENTION TO EACH.PT HAS G-TUBE WITH FEEDING, WHICH PT IS TOLERATING. PT WAS TURNING AND REPOSITIONING FOR COMFORT AND CARE. WILL CONTINUE TO MONITOR THIS PT.
[2019-07-24 20:00] VITALS: BP 158/75
--- NOTE | 2019-07-24 20:36 | NUR ---
RT NOTE: RECEIVED TRACH PT ON [facility] VENT ON NOTED SETTINGS PER MD ORDERS. TRACH IS PATENT AND SECURED. COMSEC MANAGER DONE. SX DONE PRN. VENT PLUGGED INTO RED OUTLET. ALARMS ON AND AUDIBLE. RODOLFO SKINNER @ BEDSIDE. NO RESP DISTRESS AT THIS TIME. WILL CONT TO MONITOR PT. Addendum: 07/25/19 at 0408 by BABAR RAHMAN RT Amended: Links added.
--- NOTE | 2019-07-24 20:41 | NUR ---
ANN MARIE/DEN ADDRESSED DAUGHTERS CONCERN ABOUT THAT THE PT COULD HAVE POSSIBLE HAD A STROKE. CALLED THE CHOIR MEMBER PAULETTE LARSON WHO SAID THAT IT SHOULD HAVE BEEN ADDRESSED DURING THE DAY SHIFT INSTEAD OF THE CRITICAL CARE CNS DUE TO HE IS UNFAMILIAR WITH THIS PT. ALSO ADDRESSED THAT THE SODIUM TO DAY IS 128, AGAIN ANOTHER CONCERN FROM DAUGHTER. NO NEW ORDERS RECEIVED AT THIS TIME. Addendum: 07/24/19 at 2044 by LATIA BECKFORD LVN PT IS CURRENTLY OBTUNED AND NON VERBAL NOT RESPONSIVE TO ANYONE.
--- NOTE | 2019-07-24 21:25 | NUR ---
ANN MARIE/SUBASSEMBLY SUPERVISOR PAULETTE LARSON CAME TO SEE PT'S DAUGHTER WHO SAID THAT PT IS ALTERED SINCE PT WAS ADMITTED TO HOSPITAL. PAULETTE ORDERED IVF NS @ 75/HR FOR THE LOW SODIUM AND FOR THE PT BEING ALTERED HE ORDERED A HEARD CT WITHOUT CONTRAST. PT'S DAUGHTER AT THIS TIME APPEARS TO BE SATISFIED, EARLIER SHE WAS AT THE DESK THREADING TO [facility]ON THE HOSPITAL AND BRING TROUBLE AND PROBLEM ARE TO THE HOSPITAL IF THINGS ARE NOT ADDRESSED.
[2019-07-24] MEDS ORDERED: IV NS 0.9% 1,000 ML BAG IV PRN (22:30)
--- NOTE | 2019-07-24 22:40 | NUR ---
ANN MARIE/BINGO USHER PT WAS GIVEN PM CARE, ALONG WITH ORAL CARE. PT TOLERATED THIS WELL, REMAINS ON CURRENT VENT SETTINGS WITH SATURATION AT 100%. PT WAS TURNED AND REPOSITIONED FOR COMFORT AND CARE. WILL CONTINUE TO MONITOR THIS PT.
[2019-07-25] VITALS: BP 101/52
--- NOTE | 2019-07-25 01:00 | NUR ---
ICU/CONDITIONER TENDER PT'S MIDNIGHT BLOOD SUGAR IS 184. THERE IS COVERAGE FOR THIS PER MD ORDERS AND HOSPITAL PROTOCOL. PT WILL CONTINUE TO MONITOR THIS SUGARS ORDERS. PT WAS TURNED AND REPOSITIONED FOR COMFORT AND CARE.
[2019-07-25] MEDS: BLOOD SUGAR DIAGNOSTIC 1 EACH STRIP IN SCH ×4 (01:23→17:09)
[2019-07-25] MEDS: INSULIN REGULAR, HUMAN 100 UNIT/ML 3 ML VIAL SQ PRN ×3 (01:29→17:10)
--- NOTE | 2019-07-25 03:24 | NUR ---
ANN MARIE/SUPERVISOR CUSTOMER COMPLAINT SERVICE PT WAS GIVEN AM CARE, ALONG WITH ORAL CARE. PT TOLERATED THIS WELL, REMAINS ON CURRENT VENT SETTINGS WITH SATURATION AT 100%. PT WAS TURNED AND REPOSITIONED FOR COMFORT AND CARE. WILL CONTINUE TO MONITOR THIS PT.
[2019-07-25 04:00] VITALS: BP 131/57
[2019-07-25] MEDS: [UNRECOGNIZED DRUG - OTHER] GT PRN ×2 (04:56→19:57)
--- NOTE | 2019-07-25 05:00 | NUR ---
ANN MARIE/CUSTOMER EXPERIENCE SPECIALIST AM LABS WERE DRAWN
--- NOTE | 2019-07-25 06:50 | NUR ---
ANN MARIE/MINE SUPERVISOR PT'S AM BLOOD SUGAR IS 73. THERE IS NO COVERAGE FOR THIS PER MD ORDERS AND HOSPITAL PROTOCOL. PT WILL CONTINUE TO MONITOR THIS SUGARS ORDERS. PT WAS TURNED AND REPOSITIONED FOR COMFORT AND CARE.
[2019-07-25 07:24] LABS: BASOPHILS % (AUTO) 1.1 % (0.0-2.0); EOSINOPHILS % (AUTO) 6.1 % (0.0-6.0); HEMATOCRIT 27 % (33-45); HEMOGLOBIN 9.1 g/dL (11.5-14.8); LYMPHOCYTES % (AUTO) 29.7 % (20.0-44.0); MEAN CORPUSCULAR HGB CONC 34 g/dl (31.0-36.0); MEAN CORPUSCULAR VOLUME 92 fL (82-100); MONOCYTES # (AUTO) 0.4 /CMM (0.1-1.30); MONOCYTES % (AUTO) 12.7 % (2.0-12.0); NEUTROPHILS # (AUTO) 1.7 /CMM (1.8-8.9); NEUTROPHILS % (AUTO) 50.4 % (43.0-81.0); PLATELET COUNT (AUTO) 177 /CMM (150-450); RED BLOOD CELL COUNT(AUTO) 2.94 MIL/uL (4.0-5.2); WHITE BLOOD COUNT (AUTO) 3.3 K/uL (4.3-11.0)
[2019-07-25 07:25] LABS: CALCIUM, SERUM 8.8 mg/dL (8.5-10.1); CARBON DIOXIDE 27 mmol/L (21-32); CHLORIDE 102 mmol/L (98-107); CREATININE 0.4 mg/dL (0.6-1.3); GLUCOSE 88 mg/dL (74-106); POTASSIUM 4.5 mmol/L (3.5-5.1); SODIUM SERUM 135 mmol/L (136-145); UREA NITROGEN, BLOOD 21 mg/dL (7-18)
--- NOTE | 2019-07-25 07:45 | NUR ---
PICKER TENDER HELPER OPENING NOTE RECEIVED REPORT [place] PM NURSE.PATIENT IN BED.OPEN EYES TO VERBAL STIMULI AND TOUCH.ON TELE MONITOR AV PACING WITH HR 60.NOT TRACKING.HAS TRACH ON VENTILATOR.TOLERATING SETTINGS WELL.PT HAS G-TUBE WITH FEEDING PROVIDING BY FAMILY. BED IS LOCKED AND IN LOW POSITION.CALL LIGHT IN REACH.BED ALARM ON.SRX3.WILL CONTINUE TO MONITOR.
[2019-07-25 08:00] VITALS: BP 119/55
[2019-07-25 08:32] LABS: BAND % (MANUAL) 2 % (0.0-5.0); EOSINOPHILS % (MANUAL) 10 % (0-4); LYMPHOCYTES % (MANUAL) 39 % (16-48); MONOCYTES % (MANUAL) 5 % (0-11.0); NEUTROPHILS % (MANUAL) 44 (42-76)
[2019-07-25] MEDS: CEFEPIME 2 GM in IV D5W 100 ML IV SCH ×2 (08:40→20:14)
[2019-07-25] MEDS: CARNITINE 500 MG GT SCH ×2 (08:40→17:11)
[2019-07-25] MEDS: LEVETIRACETAM SOL (5 ML) 100 MG/ML UDC PO SCH ×2 (08:41→20:14)
[2019-07-25] MEDS: ASPIRIN 81 MG TAB.CHEW GT SCH (08:41)
[2019-07-25] MEDS: MULTIVITAMINS,THERAGRAN 1 UDTAB TABLET GT SCH (08:41)
[2019-07-25] MEDS: HYDROGEL DRESSING 90 GM TUBE TP SCH (08:43)
[2019-07-25] MEDS: Z GUARD REMEDY 2 OZ OINT TP SCH (08:43)
[2019-07-25] MEDS: THERAHONEY GEL 1.5 OZ TUBE TP SCH (08:43)
[2019-07-25] MEDS: ENOXAPARIN SODIUM 60 MG/0.6 ML DISP.SYRIN SQ SCH ×2 (08:44→20:15)
[2019-07-25] MEDS: VANCOMYCIN 1 GM in IV D5W 250 ML IV SCH (10:16)
--- NOTE | 2019-07-25 11:28 | NUR ---
RT PT RECEIVED TRACH'D (PORTEX #8) ON [facility] VENT WITH SETTINGS PER MD ORDER. SEASONAL RECRUITER DONE. VENT PLUGGED INTO RED OUTLET. SUCTIONED MOD AMOUNTS OF THICK, PALE YELLOW SECRETIONS. SPARE TRACH AND AMBU BAG AT BEDSIDE. NO SIGNS OF DISTRESS NOTED AT THIS TIME. WILL CONTINUE TO MONITOR FOR ANY CHANGES. Addendum: 07/25/19 at 1823 by ALISHA JOSEPH RT Amended: Links added.
[2019-07-25 12:00] VITALS: BP 146/62
--- NOTE | 2019-07-25 12:00 | NUR ---
RECONCILER NOTE SEEN BY ,UPDATED ABOUT PATIENT CONDITION WITH LABS.MADE AWARE ABOUT REQUEST FROM DAUGHTER TO CALL HER.
[2019-07-25 16:00] VITALS: BP 120/56
--- NOTE | 2019-07-25 17:40 | NUR ---
TRIM SAWYER NOTE RELAYED CT HEAD RESULT TO .NNO NOW.WILL F/U WITH NEUROLOGIST IN AM.
--- NOTE | 2019-07-25 18:46 | NUR ---
LINEN SUPERVISOR CLOSING NOTE PATIENT IN BED.OPEN EYES TO VERBAL STIMULI AND TOUCH.ON TELE MONITOR AV PACING WITH HR 60.NOT TRACKING.HAS TRACH ON VENTILATOR.TOLERATING SETTINGS WELL.PT HAS G-TUBE WITH FEEDING PROVIDING BY FAMILY. BED IS LOCKED AND IN LOW POSITION.CALL LIGHT IN REACH.BED ALARM ON.SRX3.ENDORSED TO PM NURSE FOR ABELINO.
[2019-07-25 20:00] VITALS: BP 144/72
--- NOTE | 2019-07-25 20:46 | NUR ---
HAND CROCHETER OPENING NOTES RECEIVED REPORT FROM ALEX ALLRED. PATIENT A/A/O X1 TO NAME BUT NON-VERBAL & UNABLE TO MAKE NEEDS KNOWN. RESPONDS TO VERBAL & TACTILE STIMULI & OPENS/CLOSES EYES SPONTANEOUSLY. BREATHING EVEN & UNLABORED W/ TRACH INTACT & TOLERATING VENT SETTINGS, SIMV 10, TV 400, FIO2 30%, PEEP 5. NO S/S OF RESPIRATORY DISTRESS NOTED. ON TELE W/ AV PACING, HR 60. RIGHT FOREARM MIDLINE INTACT & PATENT W/ DRESSING CDI, ON TKO. NO S/S OF PAIN OR DISCOMFORT @ THIS TIME. SAFETY MEASURES IN PLACE W/ SIDE RAILS UP & BED ALARM ON. TURNED & REPOSITIONED FOR COMFORT & HOB ELEVATED FOR ASPIRATION PRECAUTIONS. WILL CONTINUE TO MONITOR.
--- NOTE | 2019-07-25 21:40 | NUR ---
2139 PATIENT'S DAUGHTER AT BEDSIDE AND IS ASKING FOR MRI TO BE DONE BECAUSE OF CT OF HEAD RESULT THAT WAS DONE IN THE MORNING. SPOKE WITH AVNI ON THE PHONE AND MADE HIM AWARE OF PT.'S DAUGHTER CONCERN, HE SAID HE WILL ORDER NEURO CONSULTATION FOR PATIENT SO PATIENT CAN BE SEEN BY NEUROLOGIST IN THE MORNING. EXPLAINED TO THE DAUGHTER WHAT AVNI SAID, BUT DAUGHTER INSISTS THAT SOMETHING MUST BE DONE BECAUSE IT IS AN URGENT MATTER OR SHE WANTS HER MOTHER TRANSFERRED TO [facility]. EXPLAINED TO HER THAT TRANSFER TO ANOTHER HOSPITAL TAKES PROCESS WHICH INVOLVES HARVEST WORKER, BUT SHE IS ADAMANT THAT WE DO SOMETHING. CALLED NURSING MAINFRAME SYSTEMS PROGRAMMER JOSEFA AND NOTIFIED OF PATIENT'S DAUGHTER REQUEST AND ACCORDING TO JOSEFA IF THEY WANT TO TRANSFER PATIENT TO [facility] THEN THEY WOULD NEED TO SIGN PATIENT AMA AND TAKE THE PATIENT THEMSELVES, WHICH WAS EXPLAINED TO THE DAUGHTER EARLIER. EXPLAINED TO PATIENT'S DAUGHTER AGAIN WHAT NURSING MAINFRAME SYSTEMS PROGRAMMER SAID AND SHE SAID " DO YOU UNDERSTAND THAT IF SOMETHING HAPPENED TO MY MOM THAT THERE WILL BE A BIG LAWSUIT AGAINST ALL OF YOU." CALLED AVNI AGAIN AND TOLD HIM ABOUT WHAT THE DAUGHTER SAID AND ASKED HIM IF HE WANTED TO ORDER STAT MRI. AVNI REFUSED TO ORDER MRI AND INSISTS ON TAKING THIS UP TO THE NURSING MAINFRAME SYSTEMS PROGRAMMER. NOTIFIED INTERN MELQUIADES SON ABOUT THE INCIDENT. AWAITING REPLY FROM HIM.
--- NOTE | 2019-07-25 22:50 | NUR ---
2250 PATIENT'S DAUGHTER AND SON IN LAW AT BEDSIDE AND INSISTING THAT WE TRANSFER PATIENT TO [facility]. EXPLAINED TO THEM AGAIN THAT WE NEED TO GET THE FLAME CHANNELER INVOLVED WITH THE PROCESS OF TRANSFER AND THAT IT WILL BE BROUGHT UP TO THEIR ATTENTION SOON POSSIBLE IN THE MORNING. THEY SAID IT MUST BE DONE " WITHIN HOURS" BECAUSE THEY ALREADY CALLED THEIR NARROW FABRIC CALENDERER AND THAT THEY WILL CALL HEALTH DEPARTMENT WELL IN THE MORNING. JOSEFA NURSING VISUAL SUPERVISOR NOTIFIED AND WILL CALL MD ANALYTICS INTERN.
--- NOTE | 2019-07-25 23:45 | NUR ---
2345 CALLED [facility] TRANSFER DEPT. AT [phone] TO FOLLOW UP ON TRANSFER STATUS, SPOKE WITH DB, SHE SAID SHE WILL CALL ME BACK.
[2019-07-26] VITALS (7 sets, daily range): BP systolic 117–166; BP diastolic 51–72
[2019-07-26] MEDS: BLOOD SUGAR DIAGNOSTIC 1 EACH STRIP IN SCH ×5 (00:03→23:32)
[2019-07-26] MEDS: INSULIN REGULAR, HUMAN 100 UNIT/ML 3 ML VIAL SQ PRN ×4 (00:04→23:41)
--- NOTE | 2019-07-26 02:00 | NUR ---
MECHANICAL ENGINEERING LECTURER NOTES SPOKE TO DB [facility] FOLLOW TRANSFER TO [facility] ,IRON SAID SHE WILL FOLLOW UP ,AND WILL CALL US BACK.
[2019-07-26] MEDS: VANCOMYCIN 1 GM in IV D5W 250 ML IV SCH (04:01)
[2019-07-26] MEDS: [UNRECOGNIZED DRUG - OTHER] GT PRN (04:01)
--- NOTE | 2019-07-26 05:00 | NUR ---
CEILING INSULATION BLOWER NOTES PATIENT'S DAUGHTER STILL DEMANDING PATIENT TO BE TRANSFERRED TO [facility]. HORTICULTURE PROFESSOR AVNI CALLED & SPOKE TO DAUGHTER & DAUGHTER WAS YELLING OVER THE PHONE. CHARGE NURSE ROBER ALSO ABLE TO SPEAK TO DB FROM [facility] REGARDING TRANSFER & PER DB THEY WILL FOLLOW UP IN THE MORNING. ROBER ALSO SPOKE TO RISK CONTROL FIELD REPRESENTATIVE, YLNETTE WHO SAID SHE WILL ALSO FOLLOW UP. PATIENT'S DAUGHTER, LUIS AWARE.
[2019-07-26 06:45] LABS: CALCIUM, SERUM 8.6 mg/dL (8.5-10.1); CARBON DIOXIDE 28 mmol/L (21-32); CHLORIDE 98 mmol/L (98-107); CREATININE 0.5 mg/dL (0.6-1.3); GLUCOSE 237 mg/dL (74-106); POTASSIUM 5.2 mmol/L (3.5-5.1); SODIUM SERUM 130 mmol/L (136-145); UREA NITROGEN, BLOOD 20 mg/dL (7-18)
--- NOTE | 2019-07-26 06:53 | NUR ---
SUPERVISOR PAPER PRODUCTS NOTES PATIENT'S DAUGHTER REFUSED FULL BED BATH LAST NIGHT & THIS MORNING BUT STILL GAVE PATIENT PERICARE & REPOSITIONED Q2H.
--- NOTE | 2019-07-26 07:19 | NUR ---
MEDICATION ADMINISTRATION PROFESSIONAL NOTES PER PATIENT'S DAUGHTER, SHE ONLY WANTS THERAHONEY TO BE USED ON ALL WOUNDS AND NOT HYDROGEL AT ALL. ENDORSED TO AM NURSE, SELVIN TO LET WOUND NURSE & MD KNOW.
--- NOTE | 2019-07-26 07:49 | NUR ---
RT NOTE RECEIVED PT MECHANICALLY VENTILATED VIA CUFFED TRACHEOSTOMY TUBE. CUFF INFLATED. TRACH TUBE MIDLINE AND SECURE. VENTILATOR SETTINGS PRESCRIBED. ALARMS SET PER PROTOCOL AND AUDIBLE. VENT PLUGGED IN TO RED OUTLET. AMBU BAG AT BED SIDE. NO DISTRESS NOTED AT MOMENT. Addendum: 07/26/19 at 0750 by HAYLEE ROSAS RT Amended: Links added.
--- NOTE | 2019-07-26 08:01 | NUR ---
RN OPENING NOTES RECEIVED REPORT FROM WASHER REPAIRMAN RN. PATIENT IS A/A/O X1 TO NAME BUT NON-VERBAL & UNABLE TO MAKE NEEDS KNOWN. RESPONDS TO VERBAL & TACTILE STIMULI & OPENS/CLOSES EYES SPONTANEOUSLY. BREATHING EVEN & UNLABORED W/ TRACH INTACT & TOLERATING VENT SETTINGS, SIMV 10, TV 400, FIO2 30%, PEEP 5. NO S/S OF RESPIRATORY DISTRESS NOTED. ON TELE W/ AV PACING, HR 60. RIGHT FOREARM MIDLINE INTACT & PATENT W/ DRESSING CDI, ON TKO. NO S/S OF PAIN OR DISCOMFORT @ THIS TIME. DAUGHTER AT PT'S BEDSIDE. SAFETY MEASURES IN PLACE W/ SIDE RAILS UP & BED ALARM ON. TURNED & REPOSITIONED TO DAUGHTER'S SPECIFICATIONS & HOB ELEVATED FOR ASPIRATION PRECAUTIONS. WILL CONTINUE TO MONITOR.
[2019-07-26] MEDS: CEFEPIME 2 GM in IV D5W 100 ML IV SCH ×2 (08:46→20:00)
[2019-07-26] MEDS: HYDROGEL DRESSING 90 GM TUBE TP SCH (09:00)
[2019-07-26] MEDS: ASPIRIN 81 MG TAB.CHEW GT SCH (09:16)
[2019-07-26] MEDS: CARNITINE 500 MG GT SCH ×2 (09:16→17:55)
[2019-07-26] MEDS: MULTIVITAMINS,THERAGRAN 1 UDTAB TABLET GT SCH (09:16)
[2019-07-26] MEDS: ENOXAPARIN SODIUM 60 MG/0.6 ML DISP.SYRIN SQ SCH ×2 (09:17→21:06)
[2019-07-26] MEDS: LEVETIRACETAM SOL (5 ML) 100 MG/ML UDC PO SCH ×2 (09:17→21:01)
[2019-07-26] MEDS: Z GUARD REMEDY 2 OZ OINT TP SCH (09:18)
[2019-07-26] MEDS: THERAHONEY GEL 1.5 OZ TUBE TP SCH (09:18)
[2019-07-26] MEDS: MEDIHONEY TP SCH (13:15)
--- NOTE | 2019-07-26 14:20 | NUR ---
[facility] REQUESTING FACESHEET AND H&P. REQUESTED ITEMS WERE FAXED AWAITING RESPONSE.
--- NOTE | 2019-07-26 18:17 | NUR ---
RN NOTE ASSISTING SELVIN RN WITH ATIVAN ADMIN D/T PATIENT ACTIVELY SEIZING
[2019-07-26] MEDS ORDERED: LEVETIRACETAM SOL (5 ML) 100 MG/ML UDC GT ONE (18:30)
[2019-07-26] MEDS ORDERED: LORAZEPAM INJ 2 MG/ML VIAL IV ONE (18:30)
--- NOTE | 2019-07-26 18:48 | NUR ---
Dr. Olea called orders given and carried out. Pt having non convulsion seizures showed during EEG. will continue to monitor pt.
--- NOTE | 2019-07-26 19:25 | NUR ---
TELE/RN NOTES PATIENT IN BED, AWAKE, OPEN EYES, DOES NOT FOLLOW COMMAND, RESPONSIVE TO TACTILE STIMULI, IN NO ACUTE DISTRESS, TRACH INTACT, PATENT, CONNECTED TO VENT WITH PRESCRIBED SETTINGS, RESPIRATION EVEN AND UNLABORED. NO SOB NOTED, O2 SAT 98% AT THIS TIME. NO S/S OF PAIN NOTED. RIGHT FOREARM MIDLINE WITH NO S/S OF INFECTION/ INFILTRATION. G TUBE IN PLACE, PATENT, CONNECTED TO FEEDING ORDERED. HOB ELEVATED, PATIENT ON TELE MONITORING V-PACING WITH RATE 60. SAFETY MAINTAINED, BED AT THE LOWEST LOCKED POSITION. KEPT CLEAN AND DRY. CALL LIGHT WITHIN REACH. WILL CONTINUE TO MONITOR PER PLAN OF CARE.
--- NOTE | 2019-07-26 19:39 | NUR ---
RN CLOSING NOTES PT TOLERATING VENT SETTINGS WELL. G-TUBE FEEDING RUNNING Lanyrd FEEDING PROVIDED BY FAMILY AT 85 MLS/HR NO RESIDUAL. PT'S DAUGHTER REQUESTING ONLY WATER PROVIDED BY FAMILY TO BE USED TO FLUSH AND GIVE THROUGH G-TUBE. PT IS ON TELE MONITOR IS V-PACING AT 60. DAUGHTER SPOKE TO RN IS REQUESTING CEFEPIME BE DISCONTINUED. FOR NOW HOLDING CEFEPIME PER FAMILY REQUEST. SATURATOR TENDER RN MADE AWARE OF REQUEST OF FAMILY. WOUND CARE DONE PER DAUGHTER'S REQUEST. HOB ELEVATED TO 45 DEGREES. ABELINO ENDORSED TO SATURATOR TENDER RN. BED IS LOCKED AND IN LOWEST POSITION.
--- NOTE | 2019-07-26 20:38 | NUR ---
HOLDING CEFEPIME PER DAUGHTER REQUEST.
--- NOTE | 2019-07-26 21:18 | NUR ---
RT NOTE PT RECEIVED TRACHED ON MECHANICAL VENTILATION. PORTEX [address] AMBU BAG/BACK UP TRACH @ BEDSIDE. SX DONE, TRACH SECURED AND PATENT. ALARMS ON AND AUDIBLE. VENT PLUGGED TO RED OUTLET. NO SOB NOTED AT THIS TIME. WILL MONITOR T/O SHIFT. CONT. PULSE OX CONNECTED. Addendum: 07/26/19 at 2118 by ZAMZAM QUIROGA RT Amended: Links added.
[2019-07-27] VITALS: BP 138/76
[2019-07-27 04:00] VITALS: BP 144/61
[2019-07-27] MEDS: BLOOD SUGAR DIAGNOSTIC 1 EACH STRIP IN SCH ×3 (05:38→17:47)
[2019-07-27] MEDS: INSULIN REGULAR, HUMAN 100 UNIT/ML 3 ML VIAL SQ PRN ×3 (05:41→18:04)
[2019-07-27] MEDS: LEVETIRACETAM SOL (5 ML) 100 MG/ML UDC PO SCH ×3 (06:16→21:09)
[2019-07-27 06:52] LABS: BASOPHILS % (AUTO) 0.7 % (0.0-2.0); EOSINOPHILS % (AUTO) 4.6 % (0.0-6.0); HEMATOCRIT 27 % (33-45); HEMOGLOBIN 9.1 g/dL (11.5-14.8); LYMPHOCYTES % (AUTO) 27.8 % (20.0-44.0); MEAN CORPUSCULAR HGB CONC 33 g/dl (31.0-36.0); MEAN CORPUSCULAR VOLUME 92 fL (82-100); MONOCYTES # (AUTO) 0.6 /CMM (0.1-1.30); MONOCYTES % (AUTO) 15.2 % (2.0-12.0); NEUTROPHILS # (AUTO) 1.9 /CMM (1.8-8.9); NEUTROPHILS % (AUTO) 51.7 % (43.0-81.0); PLATELET COUNT (AUTO) 135 /CMM (150-450); RED BLOOD CELL COUNT(AUTO) 2.96 MIL/uL (4.0-5.2); WHITE BLOOD COUNT (AUTO) 3.6 K/uL (4.3-11.0)
--- NOTE | 2019-07-27 06:55 | NUR ---
TELE/RN NOTES PATIENT REMAINED IN BED, AWAKE, EYES OPEN, RESPONSIVE TO TACTILE STIMULI, IN NO ACUTE DISTRESS, TRACH INTACT, PATENT, CONNECTED TO VENT WITH PRESCRIBED SETTINGS, RESPIRATION EVEN AND UNLABORED. NO SOB NOTED, O2 SAT 99% AT THIS TIME. NO S/S OF PAIN NOTED. RIGHT FOREARM MIDLINE WITH NO S/S OF INFECTION/ INFILTRATION. G TUBE IN PLACE, PATENT, CONNECTED TO FEEDING ORDERED. HOB ELEVATED, PATIENT ON TELE MONITORING V-PACING WITH RATE 60. ALL DUE MEDS GIVEN ORDERED, TREATMENTS RENDERED, TOLERATED WELL. SAFETY MAINTAINED, BED AT THE LOWEST LOCKED POSITION. KEPT CLEAN AND DRY. CALL LIGHT WITHIN REACH. WILL ENDORSE TO AM SHIFT NURSE FOR ABELINO.
[2019-07-27 07:19] LABS: CALCIUM, SERUM 8.6 mg/dL (8.5-10.1); CARBON DIOXIDE 24 mmol/L (21-32); CHLORIDE 99 mmol/L (98-107); CREATININE 0.4 mg/dL (0.6-1.3); GLUCOSE 207 mg/dL (74-106); POTASSIUM 5.2 mmol/L (3.5-5.1); SODIUM SERUM 129 mmol/L (136-145); UREA NITROGEN, BLOOD 21 mg/dL (7-18)
[2019-07-27 08:00] VITALS: BP 145/50
[2019-07-27] MEDS: CEFEPIME 2 GM in IV D5W 100 ML IV SCH (08:57)
[2019-07-27] MEDS: ASPIRIN 81 MG TAB.CHEW GT SCH (08:58)
[2019-07-27] MEDS: MULTIVITAMINS,THERAGRAN 1 UDTAB TABLET GT SCH (08:58)
[2019-07-27] MEDS: COQ10 GT SCH ×2 (08:58→16:23)
[2019-07-27] MEDS: CARNITINE 500 MG GT SCH ×2 (08:59→16:22)
[2019-07-27] MEDS: COLOSTRUM PO SCH (09:00)
[2019-07-27] MEDS: Z GUARD REMEDY 2 OZ OINT TP SCH (09:01)
[2019-07-27] MEDS: MEDIHONEY TP SCH (09:01)
[2019-07-27] MEDS: THERAHONEY GEL 1.5 OZ TUBE TP SCH (09:02)
[2019-07-27] MEDS: ENOXAPARIN SODIUM 60 MG/0.6 ML DISP.SYRIN SQ SCH ×2 (09:04→21:11)
[2019-07-27 09:54] LABS: EOSINOPHILS % (MANUAL) 5 % (0-4); LYMPHOCYTES % (MANUAL) 30 % (16-48); MONOCYTES % (MANUAL) 16 % (0-11.0); NEUTROPHILS % (MANUAL) 49 (42-76)
[2019-07-27 12:00] VITALS: BP 150/63
[2019-07-27] MEDS ORDERED: FUROSEMIDE 20 MG/2 ML VIAL IV ONE (12:30)
[2019-07-27 16:00] VITALS: BP_SYST 141; BP_DIAS 71; BP_DIAS 72
--- NOTE | 2019-07-27 16:00 | NUR ---
RN NOTE SPOKE WITH DR HAIR RE CT ABD RESULTS. NO NEW ORDERS, HE ASKED TO NOTIFY HEALTHCARE TRANSLATOR, UPON REVIEWING THE CHART, DR NOVA REVIEWED THE RESULT OF CT ABD/PELVIS AND INCLUDED IN HIS NOTES. NO FURTHER ORDERS.
[2019-07-27 20:00] VITALS: BP 131/62
[2019-07-28] VITALS (8 sets, daily range): BP systolic 112–150; BP diastolic 47–64
[2019-07-28] MEDS: INSULIN REGULAR, HUMAN 100 UNIT/ML 3 ML VIAL SQ PRN ×5 (00:58→23:38)
[2019-07-28] MEDS: LORAZEPAM INJ 2 MG/ML VIAL IV PRN (02:13)
--- NOTE | 2019-07-28 02:23 | NUR ---
RN NOTES THE DAUGHTER APPROACHED THE NURSE REGARDING THE SETTING OF THE VENT MACHINE. DAUGHTER WANTS THE SETTING CHANGED FROM SIMV TO AC. THE REASON SHE SAID WAS BECAUSE THE MACHINE KEEPS ON BEEPING. RT WAS PRESENT, SETTING WAS SIMV. PATIENT WAS IN NO APPARENT DISTRESS WITH O2SAT OF 100%, HR 60BPM. AFEBRILE. THE DAUGHTER CONCLUDED THE PATIENT IS HAVING DIFFICULTY OF BREATHING AND IT IS TRIGGERING A SEIZURE EPISODE. ASSESSED PATIENT, VITALS ARE WNL. NOTED WITH FACIAL INVOLUNTARY MOVEMENTS. OFFERED TO ADMINISTER ATIVAN FOR SEIZURE ORDERED TO THE PATIENT. THE DAUGHTER REFUSED AND WANTS AN EEG FIRST BEFORE GIVING THE MEDICATION. WHILE CALLING THE DOCTOR FOR VENT SETTING CHANGE, THE DAUGHTER SAID HER MOM IS HAVING A SEIZURE EPISODE AND WE NEED TO CHANGE THE SETTING AT ONCE, RIGHT NOW. DAUGHTER WAS AGITATED AND WITH A LOUD VOICE DEMANDING THAT WE DO WHAT SHE ASKED. AT THIS POINT SECURITY WAS CALLED. DAUGHTER AGREED TO GIVE ATIVAN 1MG, NOTED PATIENT RELAXING, NO FACIAL GRIMACE OR ANY PHYSICAL MANIFESTATION OF PAIN OR DISCOMFORT. DAUGHTER ASKED THE NURSE TO TALK TO [employer] WHICH SHE JUST CALLED. REFUSED REQUEST SINCE SECURITY ALREADY CALLED [employer]. MEANWHILE, APPROVED CHANGE OF SETTING FROM SIMV TO AC, NOTED AND CARRIED OUT. BEFORE THE POLICE ARRIVED, DAUGHTER STARTED TAKING PICTURES OF NURSES AND THREATENING TO BRANDON EVERYBODY. SHE VIDEOTAPED THE SECURITY GUARDS AND THE HOSPITAL. PRESENTED TO HER THE LAW WHCH PROHIBITS HER TAKING PICTURES, SHE JUST DELETED THE NURSES'S PICTURES BUT NOT OF THE SECURITY GUARDS AND THREATENS TO FILE A CASE. [employer] ARRIVED AT ABOUT 0245, SPOKE WITH THE TRANSFER MAN AND WENT INSIDE THE PATIENT'S ROOM TO TALK TO THE DAUGHTER. EVENTUALLY, THE DAUGHTER WAS ASSISTED OUT OF THE BUILDING. CONTINUOUS MONITORING DONE TO THE PATIENT. VITALS IS WNL. NO INVOLUNTARY MOVEMENT NOTED. NO SIGNS OR SYMPTOMS OF PAIN OR DISCOMFORT. PATIENT IS COMFORTABLY RESTING IN BED. TURNED AND REPOSITIONED EVERY TWO HOURS. BED BATH GIVEN AT 2230. TREATMENT DONE, WOUND DRESSING CHANGED. KEPT CLEAN AND DRY.
--- NOTE | 2019-07-28 02:32 | NUR ---
RT NOTE PT SWITCHED TO AC 14, 450, 30% +[address] CÁRDENAS. PT'S DAUGHTER KEPT INSISTING PT IS HAVING A SEIZURE AND WANTS HER ON AC. RN IS AWARE AND WILL BE GIVING PT ATIVAN. NO RESP DISTRESS NOTED AT THIS TIME.
--- NOTE | 2019-07-28 05:20 | NUR ---
RT NOTE PT RECEIVED ON [facility] VENT ON THE FOLLOWING NOTED SETTINGS OF SIMV. DAUGHTER AT BEDSIDE. PT SX'D. NO BREATHING TX AT THIS TIME. NO RESP DISTRESS OR SOB NOTED AT THIS TIME. DAUGHTER DID MAKE IT AWARE THAT SHE SUCTIONS HER MOM ON HER OWN SINCE SHE WAS TRAINED TO DO IT. VENT IS PLUGGED INTO RED OUTLET. ALARMS ARE ON AND AUDIBLE. SPARE TRACH AND AMBU BAG ARE AT BEDSIDE. WILL CONT TO MONITOR THROUGH OUT SHIFT. Addendum: 07/28/19 at 0523 by JENNIFER BLANCA RT Amended: Links added.
--- NOTE | 2019-07-28 05:22 | NUR ---
RT NOTE PT CHANGED TO AC 14, 450, 30%, +5 PER MD ORDER. DAUGHTER KEPT INSISTING TO GET TO AC FROM [facility] BECAUSE SHE THINKS THAT HER MOM IS HAVING A SEIZURE. RN IS AWARE AND GOT A VERBAL ORDER TO CHANGE TO AC FROM DR. CÁRDENAS. Addendum: 07/28/19 at 0523 by JENNIFER BLANCA RT Amended: Links added.
[2019-07-28] MEDS: LEVETIRACETAM SOL (5 ML) 100 MG/ML UDC PO SCH ×2 (05:59→12:16)
[2019-07-28] MEDS: BLOOD SUGAR DIAGNOSTIC 1 EACH STRIP IN SCH ×5 (06:15→23:38)
[2019-07-28 07:16] LABS: BASOPHILS % (AUTO) 0.8 % (0.0-2.0); CALCIUM, SERUM 8.4 mg/dL (8.5-10.1); CARBON DIOXIDE 26 mmol/L (21-32); CHLORIDE 97 mmol/L (98-107); CREATININE 0.4 mg/dL (0.6-1.3); EOSINOPHILS % (AUTO) 5.4 % (0.0-6.0); GLUCOSE 191 mg/dL (74-106); HEMATOCRIT 27 % (33-45); HEMOGLOBIN 8.9 g/dL (11.5-14.8); LYMPHOCYTES # (AUTO) 0.9 /CMM (0.8-4.8); LYMPHOCYTES % (AUTO) 28.3 % (20.0-44.0); MEAN CORPUSCULAR HGB CONC 33 g/dl (31.0-36.0); MEAN CORPUSCULAR VOLUME 92 fL (82-100); MONOCYTES # (AUTO) 0.3 /CMM (0.1-1.30); MONOCYTES % (AUTO) 9.2 % (2.0-12.0); NEUTROPHILS # (AUTO) 1.8 /CMM (1.8-8.9); NEUTROPHILS % (AUTO) 56.3 % (43.0-81.0); PLATELET COUNT (AUTO) 151 /CMM (150-450); POTASSIUM 4.8 mmol/L (3.5-5.1); RED BLOOD CELL COUNT(AUTO) 2.89 MIL/uL (4.0-5.2); SODIUM SERUM 129 mmol/L (136-145); UREA NITROGEN, BLOOD 24 mg/dL (7-18); WHITE BLOOD COUNT (AUTO) 3.2 K/uL (4.3-11.0)
[2019-07-28] MEDS: ASPIRIN 81 MG TAB.CHEW GT SCH (08:14)
[2019-07-28] MEDS: MULTIVITAMINS,THERAGRAN 1 UDTAB TABLET GT SCH (08:14)
[2019-07-28] MEDS: CARNITINE 500 MG GT SCH ×2 (08:15→17:20)
[2019-07-28] MEDS: COLOSTRUM PO SCH (08:15)
[2019-07-28] MEDS: THERAHONEY GEL 1.5 OZ TUBE TP SCH (08:15)
[2019-07-28] MEDS: Z GUARD REMEDY 2 OZ OINT TP SCH (08:16)
[2019-07-28] MEDS: MEDIHONEY TP SCH (08:16)
[2019-07-28] MEDS: ENOXAPARIN SODIUM 60 MG/0.6 ML DISP.SYRIN SQ SCH ×2 (08:18→20:57)
[2019-07-28] MEDS ORDERED: LORAZEPAM INJ 2 MG/ML VIAL IV ONE (15:00)
[2019-07-28] MEDS ORDERED: LEVETIRACETAM SOL (5 ML) 100 MG/ML UDC PO ONE (15:00)
[2019-07-28] MEDS: COQ10 GT SCH ×2 (15:25→17:20)
--- NOTE | 2019-07-28 19:40 | NUR ---
NURSE EMERGENCY ROOM NOTES, PATIENT IN BED, ASLEEP AT THIS TIME, ON MECHANICAL VENTILATOR TOLERATING VENT SETTINGS WELL, NO SOB/ACUTE DISTRESS NOTED, NO FACIAL GRIMACING NOTED, PAIN OR S/S OF DISCOMFORT, ON TELE MONITOR IS V-PACING AT 60,RIGHT FA MIDELINE IN P LCED PATENT AND INTACT, TKO, G-TUBE FEEDING RUNNING [place] FEEDING AT 85 ML/HR NO RESIDUAL, DAUGHTER AT BEDSIDE, HOB ELEVATED FOR ASPIRATION PRECAUTIONS, ON SEIZURE PRECAUTIONS WELL, NO SEIZURE ACTIVITY NOTED AT THIS TIME, BED IS LOCKED AND IN LOWEST POSITION, WILL CONTINUE TO MONITOR CLOSELY.
[2019-07-28] MEDS: LEVETIRACETAM (500MG) 1,500 MG in IV NS 0.9% 100 ML IV SCH (20:56)
[2019-07-29] VITALS: BP 137/46
[2019-07-29] MEDS: BLOOD SUGAR DIAGNOSTIC 1 EACH STRIP IN SCH ×4 (05:31→23:15)
[2019-07-29] MEDS: INSULIN REGULAR, HUMAN 100 UNIT/ML 3 ML VIAL SQ PRN ×4 (05:35→23:14)
[2019-07-29 06:20] LABS: BASOPHILS % (AUTO) 1.4 % (0.0-2.0); EOSINOPHILS % (AUTO) 4.7 % (0.0-6.0); HEMATOCRIT 28 % (33-45); HEMOGLOBIN 9.3 g/dL (11.5-14.8); LYMPHOCYTES % (AUTO) 27.8 % (20.0-44.0); MEAN CORPUSCULAR HGB CONC 34 g/dl (31.0-36.0); MEAN CORPUSCULAR VOLUME 91 fL (82-100); MONOCYTES # (AUTO) 0.3 /CMM (0.1-1.30); NEUTROPHILS % (AUTO) 58.1 % (43.0-81.0); PLATELET COUNT (AUTO) 146 /CMM (150-450); RED BLOOD CELL COUNT(AUTO) 3.01 MIL/uL (4.0-5.2); WHITE BLOOD COUNT (AUTO) 3.5 K/uL (4.3-11.0)
[2019-07-29 06:24] LABS: CALCIUM, SERUM 8.4 mg/dL (8.5-10.1); CARBON DIOXIDE 26 mmol/L (21-32); CHLORIDE 98 mmol/L (98-107); CREATININE 0.4 mg/dL (0.6-1.3); GLUCOSE 214 mg/dL (74-106); POTASSIUM 4.6 mmol/L (3.5-5.1); SODIUM SERUM 130 mmol/L (136-145); UREA NITROGEN, BLOOD 24 mg/dL (7-18)
[2019-07-29 06:33] VITALS: BP 140/45
--- NOTE | 2019-07-29 06:43 | NUR ---
TRAFFIC ENGINEERING DIRECTOR NOTES, PATIENT IN BED, ASLEEP AT THIS TIME, ON MECHANICAL VENTILATOR TOLERATING VENT SETTINGS WELL, NO SOB/ACUTE DISTRESS NOTED, NO FACIAL GRIMACING NOTED, PAIN OR S/S OF DISCOMFORT, NO SIGNIFICANT CHANGE IN CONDITION DURING THE NIGHT, HOB ELEVATED FOR ASPIRATION PRECAUTIONS, ON SEIZURE PRECAUTIONS WELL, NO SEIZURE ACTIVITY NOTED AT THIS TIME, BED IS LOCKED AND IN LOWEST POSITION, WILL ENDORSE CONTINUITY OF CARE TO ONCOMING NURSE.
[2019-07-29 08:00] VITALS: BP 168/63
[2019-07-29] MEDS: MEDIHONEY TP SCH (08:53)
[2019-07-29] MEDS: CARNITINE 500 MG GT SCH ×2 (08:55→18:07)
[2019-07-29] MEDS: COLOSTRUM PO SCH (08:55)
[2019-07-29] MEDS: MULTIVITAMINS,THERAGRAN 1 UDTAB TABLET GT SCH (08:55)
[2019-07-29] MEDS: ASPIRIN 81 MG TAB.CHEW GT SCH (08:55)
[2019-07-29] MEDS: THERAHONEY GEL 1.5 OZ TUBE TP SCH (08:56)
[2019-07-29] MEDS: ENOXAPARIN SODIUM 60 MG/0.6 ML DISP.SYRIN SQ SCH ×2 (08:59→21:22)
[2019-07-29] MEDS: COQ10 GT SCH ×2 (09:00→17:00)
[2019-07-29] MEDS: Z GUARD REMEDY 2 OZ OINT TP SCH (09:00)
[2019-07-29] MEDS: LEVETIRACETAM (500MG) 1,500 MG in IV NS 0.9% 100 ML IV SCH ×2 (09:13→21:22)
[2019-07-29 12:00] VITALS: BP 126/47
[2019-07-29 16:00] VITALS: BP 115/45
--- NOTE | 2019-07-29 17:39 | NUR ---
RT END OF THE SHIFT REPORT, PT. REC @0700 AM 88 Y OLD FEMALE NON VERBAL, TRACH'D PORTEX # 8 ON VENT WITH NOTED SETTINGS. EQUAL CHEST RISE NOTED B/S BILATERALLY RALES SUX'D FOR MINIMAL AMT OF WHITE THICK SECRETIONS, NO CHANGES T/O DAY. HME, FITTING ROOM OPERATOR DONE. TRACH CARE DONE, INNER CANNULA CHANGED. PT. VENT PLUGGED INTO RED OUT LET. AMBU BAG/EXTRA TRACH AT BEDSIDE. WILL CONTINUE TO MONITOR. REPORT WILL PASS TO PM SHIFT. Addendum: 07/29/19 at 1741 by FUNMI ROGERS RT Amended: Links added.
--- NOTE | 2019-07-29 19:50 | NUR ---
ORE BRIDGE OPERATOR NOTES, PATIENT IN BED, ASLEEP AT THIS TIME, ON MECHANICAL VENTILATOR TOLERATING VENT SETTINGS WELL, NO SOB/ACUTE DISTRESS NOTED, NO FACIAL GRIMACING NOTED, PAIN OR S/S OF DISCOMFORT, ON TELE MONITOR IS V-PACING AT 60, RIGHT FA MIDLINE PATENT AND INTACT, TKO, G-TUBE FEEDING INFUSING AT 85 ML/HR NO RESIDUAL, DAUGHTER AT BEDSIDE, HOB ELEVATED FOR ASPIRATION PRECAUTIONS, ON SEIZURE PRECAUTIONS WELL, REPOSITION PATIENT AT THIS TIME, DRY AND CLEAN, NO SEIZURE ACTIVITY NOTED AT THIS TIME, BED IS LOCKED AND IN LOWEST POSITION, WILL CONTINUE TO MONITOR CLOSELY
[2019-07-29 20:00] VITALS: BP_SYST 100; BP_SYST 124; BP_DIAS 40; BP_DIAS 49
[2019-07-30] VITALS: BP 100/40
--- NOTE | 2019-07-30 02:01 | NUR ---
RT Pt trach remains on [facility] vent t/o the night. No resp distress noted. Trach secure and patent. Addendum: 07/30/19 at 0202 by HONORIO BAIRD RT Amended: Links added.
[2019-07-30 04:00] VITALS: BP 96/40
[2019-07-30] MEDS: BLOOD SUGAR DIAGNOSTIC 1 EACH STRIP IN SCH ×3 (05:34→18:26)
[2019-07-30] MEDS: INSULIN REGULAR, HUMAN 100 UNIT/ML 3 ML VIAL SQ PRN ×3 (05:37→18:30)
[2019-07-30 06:45] LABS: EOSINOPHILS % (AUTO) 4.3 % (0.0-6.0); HEMATOCRIT 28 % (33-45); HEMOGLOBIN 9.2 g/dL (11.5-14.8); LYMPHOCYTES # (AUTO) 1.5 /CMM (0.8-4.8); LYMPHOCYTES % (AUTO) 33.8 % (20.0-44.0); MEAN CORPUSCULAR HGB CONC 33 g/dl (31.0-36.0); MEAN CORPUSCULAR VOLUME 92 fL (82-100); MONOCYTES # (AUTO) 0.4 /CMM (0.1-1.30); MONOCYTES % (AUTO) 8.6 % (2.0-12.0); NEUTROPHILS # (AUTO) 2.3 /CMM (1.8-8.9); NEUTROPHILS % (AUTO) 52.3 % (43.0-81.0); PLATELET COUNT (AUTO) 159 /CMM (150-450); RED BLOOD CELL COUNT(AUTO) 2.98 MIL/uL (4.0-5.2); WHITE BLOOD COUNT (AUTO) 4.3 K/uL (4.3-11.0)
--- NOTE | 2019-07-30 06:48 | NUR ---
CLOTH BURLER NOTES, PATIENT IN BED, WITH EYES CLOSED, RESPOND TO VERBAL STIMULI, ON MECHANICAL VENTILATOR TOLERATING VENT SETTINGS WELL, NO SOB/ACUTE DISTRESS NOTED, NO FACIAL GRIMACING NOTED, NO PAIN OR S/S OF DISCOMFORT NOTED, NO SIGNIFICANT CHANGE IN CONDITION DURING THE NIGHT, HOB ELEVATED FOR ASPIRATION PRECAUTIONS, ON SEIZURE PRECAUTIONS WELL, NO SEIZURE ACTIVITY NOTED DURING THE NIGHT, AND NO SIGNIFICANT CHANGE IN CONDITION DURING THE NIGHT, ALL NEEDS PROVIDED, DRY AND CLEAN, WOUND TX DONE, ALL MEDS DUE GIVEN, BED LOCKED AND IN LOWEST POSITION, CALL LIGHT W/I REACH, WILL ENDORSE CONTINUITY OF CARE TO ONCOMING NURSE.
[2019-07-30 06:54] LABS: CALCIUM, SERUM 8.6 mg/dL (8.5-10.1); CARBON DIOXIDE 25 mmol/L (21-32); CHLORIDE 97 mmol/L (98-107); CREATININE 0.4 mg/dL (0.6-1.3); GLUCOSE 152 mg/dL (74-106); POTASSIUM 4.7 mmol/L (3.5-5.1); SODIUM SERUM 129 mmol/L (136-145); UREA NITROGEN, BLOOD 27 mg/dL (7-18)
--- NOTE | 2019-07-30 07:00 | NUR ---
SILK OPENER OPENING NOTES RECEIVED PATIENT NONVERBAL, UNABLE TO TRACK OR FOLLOW COMMAND, RESPONDS TO TACTILE STIMULI. [facility], NO RESPIRATORY DISTRESS NOTED, CHEST RISE EVEN AND UNLABORED, PULSE OX ALARM ATTACHED AND AUDIBLE, SPO2 100%. TELE MONITOR ATTACHED, V PACING, HR 60. EMERGENCY EQUIPMENT + SUCTION AT BEDSIDE. GTF RUNNING HOME FORMULA @85mL/HR PER FAMILY REQUEST, NO RESIDUAL NOTED. PLACEMENT VERIFIED VIA AUSCULTATION AND ASPIRATION. BOTTLED WATER GIVEN PER FAMILY REQUEST. BP TAKEN ON LEFT CALF PER FAMILY REQUEST. RIGHT FOREARM MIDLINE CLEAN, DRY, INTACT, PATENT. HOB ELEVATED FOR ASPIRATION PRECAUTION. SEIZURE PRECAUTIONS IN PLACE. NO SIGNS OF DISCOMFORT NOTED AT THIS TIME. SUCTIONED PRN. VITALS STABLE, SEE DOCUMENTATION. BED LOCKED, LOW, SIDE RAILS UPx2, CALL LIGHT WITHIN REACH, WILL CONTINUE TO MONITOR
[2019-07-30 08:00] VITALS: BP_SYST 113; BP_SYST 129; BP_DIAS 56; BP_DIAS 80
[2019-07-30] MEDS: CARNITINE 500 MG GT SCH ×2 (08:56→16:37)
[2019-07-30] MEDS: COQ10 GT SCH ×2 (08:56→16:37)
[2019-07-30] MEDS: COLOSTRUM PO SCH (08:57)
[2019-07-30] MEDS: MEDIHONEY TP SCH (09:00)
[2019-07-30] MEDS: THERAHONEY GEL 1.5 OZ TUBE TP SCH (09:00)
[2019-07-30] MEDS: Z GUARD REMEDY 2 OZ OINT TP SCH (09:00)
[2019-07-30] MEDS: ASPIRIN 81 MG TAB.CHEW GT SCH (09:01)
[2019-07-30] MEDS: MULTIVITAMINS,THERAGRAN 1 UDTAB TABLET GT SCH (09:01)
[2019-07-30] MEDS: LEVETIRACETAM (500MG) 1,500 MG in IV NS 0.9% 100 ML IV SCH ×2 (09:01→21:29)
[2019-07-30 12:00] VITALS: BP 113/80
[2019-07-30] MEDS: ENOXAPARIN SODIUM 60 MG/0.6 ML DISP.SYRIN SQ SCH ×2 (12:30→21:35)
[2019-07-30 16:00] VITALS: BP_SYST 123; BP_DIAS 56; BP_DIAS 80
--- NOTE | 2019-07-30 16:59 | NUR ---
RT END OF THE SHIFT REPORT, PT. REC @0700 AM 88 Y OLD FEMALE NON VERBAL, TRACH PORTEX # 8 ON VENT WITH NOTED SETTINGS. EQUAL CHEST RISE NOTED B/S BILATERALLY RALES SUX'D FOR MINIMAL AMT OF WHITE THICK SECRETIONS, NO CHANGES T/O DAY. HME, JEWEL OLIVING MACHINE OPERATOR DONE. TRACH CARE DONE, INNER CANNULA CHANGED. FAMILY MEMBERS ASKING TO TRAIN THE CARTRIDGE GAUGER HOW TO DO TRACH CARE. RT EXPLAINED AND INFORMED ABOUT CARTRIDGE GAUGER SHOULD NOT TOUCH THE TRACH NOR DO ANY CARE GIVERS SINCE RT IS DOING ALL THE CARE AND DOCUMENTATIONS. PT. VENT PLUGGED INTO RED OUT LET. AMBU BAG/EXTRA TRACH AT BEDSIDE. WILL CONTINUE TO MONITOR. REPORT WILL PASS TO PM SHIFT. Addendum: 07/30/19 at 1703 by FUNMI ROGERS RT Amended: Links added.
--- NOTE | 2019-07-30 19:02 | NUR ---
COSTUME RENTAL CLERK CLOSING NOTES PATIENT REMAINS NONVERBAL, UNABLE TO TRACK OR FOLLOW COMMAND, RESPONDS TO TACTILE STIMULI. ABLE TO SMILE. PUPILS REACTIVE. [facility] VENT, NO RESPIRATORY DISTRESS NOTED, CHEST RISE EVEN AND UNLABORED, PULSE OX ALARM ATTACHED AND AUDIBLE, SPO2 100%. TELE MONITOR ATTACHED, V PACING, HR 60. EMERGENCY EQUIPMENT + SUCTION AT BEDSIDE. GTF RUNNING HOME FORMULA @85mL/HR PER FAMILY REQUEST, NO RESIDUAL NOTED THROUGHOUT SHIFT. RIGHT FOREARM MIDLINE REMAINS CLEAN, DRY, INTACT, PATENT. HOB ELEVATED AT ALL TIMES FOR ASPIRATION PRECAUTION. SEIZURE PRECAUTIONS IN PLACE. NO SEIZURE ACTIVITY NOTED THIS SHIFT. SUCTIONED PRN. BED LOCKED, LOW, SIDE RAILS UPx2, CALL LIGHT WITHIN REACH, DAUGHTER AND FRIEND AT BEDSIDE. TURNED PER PROTOCOL. WOUND CARE COMPLETED. ALL MEDS GIVEN. TRACH CARE COMPLETED BY RT. PATIENT'S DAUGHTER SPOKE TO DR. GALEAS. I RECEIVED CALL FROM [facility] TEST MANAGER REGARDING TRANSFER. ENDORSE TO MANOHAR RN FOR ABELINO
--- NOTE | 2019-07-30 19:35 | NUR ---
QUALITATIVE FIELD PROJECT MANAGER NOTES, PATIENT IN BED, AWAKE AT THIS TIME, DAUGHTER AND FAMILY MEMBER AT BEDSIDE AT THIS TIME, ON MECHANICAL VENTILATOR TOLERATING VENT SETTINGS WELL, NO SOB/ACUTE DISTRESS NOTED, NO FACIAL GRIMACING NOTED, PAIN OR S/S OF DISCOMFORT, V-PACING ON TELE MONITOR WITH HR 60S, RIGHT FA MIDLINE IN PLACED PATENT AND INTACT TKO, G-TUBE FEEDING RUNNING AT 85 ML/HR NO RESIDUAL NOTE D AT THIS TIME, HOB ELEVATED FOR ASPIRATION PRECAUTIONS, REPOSITIONED AT THIS TIME, ON SEIZURE PRECAUTIONS WELL, NO SEIZURE ACTIVITY NOTED AT THIS TIME, BED LOCKED AND IN LOWEST POSITION, WILL CONTINUE TO MONITOR CLOSELY.
[2019-07-30 20:00] VITALS: BP 116/45
[2019-07-31] VITALS: BP 118/39
[2019-07-31] MEDS: BLOOD SUGAR DIAGNOSTIC 1 EACH STRIP IN SCH ×4 (00:29→17:18)
[2019-07-31] MEDS: INSULIN REGULAR, HUMAN 100 UNIT/ML 3 ML VIAL SQ PRN ×3 (00:32→13:09)
[2019-07-31 04:00] VITALS: BP 120/55
--- NOTE | 2019-07-31 04:17 | NUR ---
RT NOTE Pt rec'd trached on [facility] vent on AC mode. No resp distress or sob noted. Trach is patent and secured. STEEL PICKLER cuff pressure noted. Sx'd for thick mod amt of pale yellow secretions. Alarms are set and audible. Vent plugged into red outlet. Ambu bag bedside. Will continue to monitor. Addendum: 07/31/19 at 0417 by DILAN TUTTLE RT Amended: Links added.
--- NOTE | 2019-07-31 06:48 | NUR ---
TELE NOTES, PATIENT IN BED, WITH EYES CLOSED, RESPOND TO VERBAL STIMULI, NO FACIAL GRIMACING NOTED, NO PAIN OR S/S OF DISCOMFORT NOTED, ON MECHANICAL VENTILATOR TOLERATING VENT SETTINGS WELL, NO SOB/ACUTE DISTRESS NOTED, NO SIGNIFICANT CHANGE IN CONDITION DURING THE NIGHT, HOB ELEVATED FOR ASPIRATION PRECAUTIONS, ON SEIZURE PRECAUTIONS WELL, NO SEIZURE ACTIVITY NOTED DURING THE NIGHT, AND NO SIGNIFICANT CHANGE IN CONDITION DURING THE NIGHT, ALL NEEDS PROVIDED, DRY AND CLEAN,, BED LOCKED AND IN LOWEST POSITION, CALL LIGHT W/I REACH, WILL ENDORSE CONTINUITY OF CARE TO ONCOMING NURSE.
[2019-07-31 08:00] VITALS: BP_SYST 123; BP_DIAS 70; BP_DIAS 71
--- NOTE | 2019-07-31 08:00 | NUR ---
TELE1/RN AM SHIFT INITIAL NOTES RECEIVED PT ASLEEP, RESPONSE TO VERBAL AND TOUCH, OPEN EYES SPONTANEOUSLY. NO GRIMACING OR ACUTE RESPIRATORY DISTRESS NOTED. VENTILATOR DEPENDENT RATES SET PRESCRIBED, SATURATING @ 100%, RESPIRATIONS EVEN & UNLABORED, LUNG SOUNDS DIMINISHED, SUCTIONED FOR AIRWAY CLEARANCE, NOTED THICK [place] SECRETIONS. ON TELE, V-PACING, HR 60. GTF ON GOING @ 85CC/HR, NO GASTRIC RESIDUAL NOTED, FLUSHED, PATENT. WOUND DRESSINGS INTACT AND CLEAN. PT IS COMFORTABLE, SCHEDULED AM MEDS TO BE GIVEN. CL WITHIN REACHED AND SAFETY MAINTAINED. ON GOING MONITORING.
[2019-07-31] MEDS: COLOSTRUM PO SCH (08:07)
[2019-07-31] MEDS: Z GUARD REMEDY 2 OZ OINT TP SCH (08:08)
[2019-07-31] MEDS: ENOXAPARIN SODIUM 60 MG/0.6 ML DISP.SYRIN SQ SCH ×2 (08:09→21:48)
[2019-07-31] MEDS: MULTIVITAMINS,THERAGRAN 1 UDTAB TABLET GT SCH (08:09)
[2019-07-31] MEDS: CARNITINE 500 MG GT SCH ×2 (08:09→16:26)
[2019-07-31] MEDS: COQ10 GT SCH ×2 (08:09→16:26)
[2019-07-31] MEDS: ASPIRIN 81 MG TAB.CHEW GT SCH (08:09)
[2019-07-31] MEDS: THERAHONEY GEL 1.5 OZ TUBE TP SCH (08:10)
[2019-07-31] MEDS: MEDIHONEY TP SCH (08:13)
[2019-07-31] MEDS: LEVETIRACETAM (500MG) 1,500 MG in IV NS 0.9% 100 ML IV SCH ×2 (08:33→21:46)
[2019-07-31] MEDS: [UNRECOGNIZED DRUG - OTHER] GT PRN (11:10)
[2019-07-31 12:00] VITALS: BP 137/52
--- NOTE | 2019-07-31 12:00 | NUR ---
TELE1/RN NOON ROUNDS NO CHANGE OF CONDITION. PT TURNED & REPOSITIONED. MONITORING CONTINUED.
[2019-07-31 16:00] VITALS: BP 151/54
--- NOTE | 2019-07-31 18:00 | NUR ---
TELE1/RN AFTERNOON ROUNDS PM CARE PROVIDED. NO CHANGE OF CONDITION. MONITORING CONTINUED.
--- NOTE | 2019-07-31 19:30 | NUR ---
TELE1/RN AM SHIFT END NOTES ALL NEEDS MET. NO ACUTE CHANGE OF CONDITION NOTED DURING THE SHIFT. PT ENDORSED TO PM NURSE TO CONTINUE CARE. CL WITHIN REACHED AND SAFETY MAINTAINED.
--- NOTE | 2019-07-31 19:32 | NUR ---
HYDROELECTRIC PRODUCTION TECHNICIAN NOTE PATIENT REPORT GIVEN BEDSIDE WITH FAMILY/ DAUGHTER PRESENT. PATIENT RECEIVED IN BED A/OX 4 NO ACUTE S/S OF DISTRESS. PATIENT TOLERATIING CURRENT VENT SETTINGS. BREATHING EVEN AND UNLABORED NO S/S OF ACUTE DISTRESS.TACH MIDLINE. EQUAL CHEST RISE AND FALL. PATIENT ON GTUBE FEEDING IN [place] BAG RUNNING 85 ML/HR. MINIMAL RESIDUAL NOTED PATIENT TOLERATING FEEDING. PATIENT HAS [place] MIDLINE PATENT AND INTACT RUNNING TKO NO S/S OF INFECTION INFILTRATION. PATIENT HEAD READJUSTED WITH DAUGHTER. POC AND GOALS DISCUSSED WITH PATIENT/ FAMILY. DAUGHTER VERBALIZED UNDERSTANDING. SAFETY PRECAUTIONS IN PLACE. CALL LIGHT WITHIN REACH. ASPIRATION PRECAUTIONS IN PLACE. RN WILL CONTINUE TO MONITOR FOR CHANGES.
[2019-07-31 20:00] VITALS: BP 110/53
--- NOTE | 2019-07-31 21:30 | NUR ---
PT RCVD CLAUDIA'D ON MECHANICAL VENT WITH CHARTED SETTINGS. SX DONE. PT TRACH IS PATENT AND SECURE. VENT ALARMS APPEAR TO BE FUNCTIONING PROPERLY. VENT PLUGGED INTO RED OUTLET. AMBU BAG AT BEDSIDE. NO SOB NOTED. Addendum: 07/31/19 at 2131 by DONITA HIGH RT Amended: Links added.
--- NOTE | 2019-07-31 22:42 | NUR ---
SLPS NOTE SPOKE TO YANIRA FROM [facility]. PER SW THEY ARE STILL UNABLE TO ACCEPT THE PATIENT. THE PATIENT WAS NO FINANCIALLY APPROVED, THERE IS NO ACCEPTING MD AND NO BED.
[2019-08-01] VITALS (9 sets, daily range): BP systolic 115–139; BP diastolic 40–98
[2019-08-01] MEDS: BLOOD SUGAR DIAGNOSTIC 1 EACH STRIP IN SCH ×4 (00:21→18:42)
[2019-08-01] MEDS: INSULIN REGULAR, HUMAN 100 UNIT/ML 3 ML VIAL SQ PRN ×3 (00:23→18:56)
[2019-08-01 06:44] LABS: WHITE BLOOD COUNT (AUTO) 5.3 K/uL (4.3-11.0)
[2019-08-01 06:45] LABS: LYMPHOCYTES # (AUTO) 1.2 /CMM (0.8-4.8); MONOCYTES # (AUTO) 0.5 /CMM (0.1-1.30)
[2019-08-01 06:49] LABS: BASOPHILS % (AUTO) 0.9 % (0.0-2.0); EOSINOPHILS % (AUTO) 4.4 % (0.0-6.0); HEMATOCRIT 28 % (33-45); HEMOGLOBIN 9.3 g/dL (11.5-14.8); MEAN CORPUSCULAR HGB CONC 33 g/dl (31.0-36.0); MEAN CORPUSCULAR VOLUME 92 fL (82-100); MONOCYTES % (AUTO) 10.2 % (2.0-12.0); NEUTROPHILS # (AUTO) 3.3 /CMM (1.8-8.9); NEUTROPHILS % (AUTO) 62.5 % (43.0-81.0); PLATELET COUNT (AUTO) 108 /CMM (150-450); RED BLOOD CELL COUNT(AUTO) 3.02 MIL/uL (4.0-5.2)
[2019-08-01] MEDS: COQ10 GT SCH ×2 (08:44→18:41)
[2019-08-01] MEDS: CARNITINE 500 MG GT SCH ×2 (08:44→18:41)
[2019-08-01] MEDS: ASPIRIN 81 MG TAB.CHEW GT SCH (08:44)
[2019-08-01] MEDS: MULTIVITAMINS,THERAGRAN 1 UDTAB TABLET GT SCH (08:44)
[2019-08-01] MEDS: LEVETIRACETAM (500MG) 1,500 MG in IV NS 0.9% 100 ML IV SCH ×2 (08:45→21:38)
[2019-08-01] MEDS: COLOSTRUM PO SCH (08:45)
[2019-08-01] MEDS: ENOXAPARIN SODIUM 60 MG/0.6 ML DISP.SYRIN SQ SCH ×2 (08:46→21:39)
--- NOTE | 2019-08-01 08:46 | NUR ---
RN NOTE RN DID NOT ADMINISTER LOVENOX DUE TO LOW PLATLETTS OF 108. WILL ENDORSE TO NIGHT NURSE FOR TOMORROW TO GIVE IF PLATLETTS WITHIN NORMAL RANGE.
[2019-08-01] MEDS: [UNRECOGNIZED DRUG - OTHER] GT PRN (08:48)
[2019-08-01] MEDS: MEDIHONEY TP SCH (08:48)
[2019-08-01] MEDS: Z GUARD REMEDY 2 OZ OINT TP SCH (08:48)
[2019-08-01] MEDS: THERAHONEY GEL 1.5 OZ TUBE TP SCH (08:49)
[2019-08-01 09:04] LABS: ALANINE AMINOTRANSFERASE 28 U/L (12-78); ALKALINE PHOSPHATASE 352 U/L (46-116); ASPARTATE AMINOTRANSFERASE 36 U/L (15-37); BILIRUBIN,TOTAL 0.2 mg/dL (0.2-1.0); CALCIUM, SERUM 8.3 mg/dL (8.5-10.1); CARBON DIOXIDE 20 mmol/L (21-32); CHLORIDE 100 mmol/L (98-107); CREATININE 0.4 mg/dL (0.6-1.3); GLUCOSE 160 mg/dL (74-106); MAGNESIUM 2.2 mg/dL (1.8-2.4); PHOSPHORUS 3.9 mg/dL (2.5-4.9); POTASSIUM 4.7 mmol/L (3.5-5.1); SODIUM SERUM 133 mmol/L (136-145); TOTAL PROTEIN, SERUM 6.5 g/dL (6.4-8.2); UREA NITROGEN, BLOOD 26 mg/dL (7-18)
[2019-08-01 11:13] LABS: ABG BASE EXCESS -0.7 mmol/L; ABG OXYGEN SATURATION 97.9 % (92.0-98.5); ABG PCO2 40.7 mmHg (35.0-45.0); ABG PH 7.391 (7.350-7.450); ABG PO2 133.8 mmHg (75.0-100.0); AaDO2 32.3 mmHg; COHb 0.1 % (0.5-1.5); MetHb 0.2 % (0.0-1.5); O2Hb 97.6 % (94.0-97.0); SITE, ABG Left Femoral; VENT MODE, BG CPAP PS 15
--- NOTE | 2019-08-01 12:00 | NUR ---
RN RESPIRATORY NOTE RESEARCH AND DEVELOPMENT RESEARCHER ORDER PATIENT RESPIRATORY SETTING DOWNGRADED. RESPIRATORY AT BEDSIDE. PATIENT TOLERATED WELL. ABG TO BE DONE 1 HOUR AFTER. MD MADE AWARE OF RESULTS, NO NEW ORDERS AT THIS TIME. WELL RE ASSESS TOMOROW AM PER PELEG.
[2019-08-01] MEDS: WARFARIN SODIUM 5 MG TABLET PO SCH (16:26)
--- NOTE | 2019-08-01 19:30 | NUR ---
PLAYGROUND OFFICIAL NOTE PATIENT REPORT GIVEN BEDSIDE WITH FAMILY/ DAUGHTER PRESENT. PATIENT RECEIVED IN BED A/O x 1 ABLE TO TRACK WITH EYES NO ACUTE S/S OF DISTRESS. PATIENT TOLERATING CURRENT VENT SETTINGS. BREATHING EVEN AND UNLABORED NO S/S OF ACUTE DISTRESS.TRACH MIDLINE. EQUAL CHEST RISE AND FALL. PATIENT ON GTUBE FEEDING IN [place] BAG RUNNING 85 ML/HR. MINIMAL RESIDUAL NOTED PATIENT TOLERATING FEEDING. PATIENT HAS RLA MIDLINE PATENT AND INTACT RUNNING TKO NO S/S OF INFECTION INFILTRATION. PATIENT TURNED AND REPOSITIONED WITH DAUGHTER. POC AND GOALS DISCUSSED WITH PATIENT/ FAMILY. DAUGHTER VERBALIZED UNDERSTANDING. SAFETY PRECAUTIONS IN PLACE. CALL LIGHT WITHIN REACH. ASPIRATION PRECAUTIONS IN PLACE. RN WILL CONTINUE TO MONITOR FOR CHANGES.
--- NOTE | 2019-08-01 20:06 | NUR ---
MANAGER GAME NOTE DAUGHTER EXPRESSED THAT SHE WANTS A URINE CULTURE FOR HER MOM, HER NORMAL TEMP IS IN THE 97 RANGE AND WAS NOTED TO BE IN THE 98. DTR STATES THAT IS A FEVER FOR HER MOM. AND MOM IS MORE LETHARGIC THAN NORMAL. DTR ALSO REQUESTS THAT SHE ONLY WANTS HER MOM TO GET INSULIN INJECTIONS IN HER ABDOMEN. SHE STATES, "THIS IS THE ONLY WAY SHE EVER GOT INSULIN, ITS THE ONLY WAY SHE LIKES IT." RN EXPLAINED SIDE EFFECTS OF NOT ROTATING INJECTION SITES AND LIPOTROPHY. DTR STILL INSISTS ON ABDOMINAL ONLY.
--- NOTE | 2019-08-01 21:13 | NUR ---
PT RCVD CLAUDIA'D ON MECHANICAL VENT WITH CHARTED SETTINGS. SX DONE. PT TRACH IS PATENT AND SECURE. VENT ALARMS APPEAR TO BE FUNCTIONING PROPERLY. VENT PLUGGED INTO RED OUTLET. AMBU BAG AT BEDSIDE. NO SOB NOTED. Addendum: 08/01/19 at 2115 by DONITA HIGH RT Amended: Links added.
[2019-08-02] VITALS: BP 134/48
--- NOTE | 2019-08-02 01:10 | NUR ---
0100 IRVIN FROM [facility] TRANSFER DEPT CALLED AND SAID STILL NO AVAILABLE BED FOR PATIENT.
[2019-08-02] MEDS: BLOOD SUGAR DIAGNOSTIC 1 EACH STRIP IN SCH ×5 (01:12→23:49)
[2019-08-02 04:00] VITALS: BP 149/51
[2019-08-02] MEDS: INSULIN REGULAR, HUMAN 100 UNIT/ML 3 ML VIAL SQ PRN ×3 (05:43→17:49)
[2019-08-02 08:00] VITALS: BP 126/55
[2019-08-02] MEDS: LEVETIRACETAM (500MG) 1,500 MG in IV NS 0.9% 100 ML IV SCH (08:43)
[2019-08-02] MEDS: CARNITINE 500 MG GT SCH ×2 (08:43→17:31)
[2019-08-02] MEDS: MULTIVITAMINS,THERAGRAN 1 UDTAB TABLET GT SCH (08:44)
[2019-08-02] MEDS: ASPIRIN 81 MG TAB.CHEW GT SCH (08:44)
[2019-08-02] MEDS: COLOSTRUM PO SCH (08:44)
[2019-08-02] MEDS: Z GUARD REMEDY 2 OZ OINT TP SCH (08:46)
[2019-08-02] MEDS: MEDIHONEY TP SCH (08:46)
[2019-08-02] MEDS: ENOXAPARIN SODIUM 60 MG/0.6 ML DISP.SYRIN SQ SCH ×4 (08:50→21:57)
[2019-08-02] MEDS: THERAHONEY GEL 1.5 OZ TUBE TP SCH (08:51)
[2019-08-02] MEDS: COQ10 GT SCH ×3 (09:00→17:56)
[2019-08-02 09:43] LABS: ABG BASE EXCESS -2.4 mmol/L; ABG OXYGEN SATURATION 97.7 % (92.0-98.5); ABG PCO2 37.4 mmHg (35.0-45.0); ABG PH 7.392 (7.350-7.450); ABG PO2 117.8 mmHg (75.0-100.0); AaDO2 37.7 mmHg; COHb 0.3 % (0.5-1.5); MetHb 0.7 % (0.0-1.5); O2Hb 96.7 % (94.0-97.0); SITE, ABG Left Radial; VENT MODE, BG COOL AEROSOL 28%
[2019-08-02 12:00] VITALS: BP 130/62
[2019-08-02 16:00] VITALS: BP 120/68
--- NOTE | 2019-08-02 16:04 | NUR ---
RN NOTE: PATIENT REMAINS ALERT AWAKE ORIENTED X 1, ON COOL AEROSOL, FIO2 28%, NO BREATHING DISTRESS NOTED. TUBE FEEDING TOLERATING WELL. ASPIRATION PRECAUTIONS OBSERVED. TURNING & REPOSITION Q2H. SAFETY MEASURES OBSERVED. FAMILY AT BEDSIDE. CONTINUE WITH PLAN OF CARE.
--- NOTE | 2019-08-02 16:06 | NUR ---
RN NOTE; REPORT GIVEN TO BLUE ALLRED DUE TO CHANGE OF ASSIGNMENT.
[2019-08-02] MEDS: WARFARIN SODIUM 5 MG TABLET PO SCH (17:31)
--- NOTE | 2019-08-02 19:30 | NUR ---
TELE NOTES RN CLOSING PATIENT ON COOL AEROSOL SATURATING WELL WITH NO SIGNS OF RESPIRATORY DISTRESS. PATIENT SHOWS PAIN FACIAL EXPRESSION WHEN BEING MOVED ADMINISTERING INSULIN. FAMILY IS AWARE . PATIENT SAFETY PRECAUTION IMPLEMENTED. BED LOCKED AND IN LOWEST POSITION . PATIENT (R) FA INTACT , PATENT AND FLUSHING WELL ON TKO. PATIENT WAS TURN AND REPOSITION MANAGEMENT. PATIENT ENDORSED TO ON COMING NURSE. FAMILY IS AWARE OF TREATMENT PLAN WELL MEDICATION MANAGEMENT PATIENTS DAUGHTER WAS CONTACTED .
--- NOTE | 2019-08-02 19:30 | NUR ---
RN OPENING NOTES: PATIENT IS NONVERBAL. A/OX1. ON COOL AEROSOL SATTING 100%. NO RESPIRATORY DISTRESS. NO S/S OF PAIN. SAFETY PRECAUTIONS IMPLEMENTED. BED LOCKED AND IN LOWEST POSITION. (R) FA INTACT, PATENT, AND FLUSHING WELL. ON TKO. TURNED AND REPOSITIONED FOR SKIN MANAGEMENT. WILL MONITOR FOR CHANGES.
[2019-08-02 20:00] VITALS: BP_SYST 123; BP_DIAS 50; BP_DIAS 59
[2019-08-02] MEDS: LEVETIRACETAM (250 MG) 250 MG TABLET PO SCH (21:34)
--- NOTE | 2019-08-02 22:00 | NUR ---
RN NOTE: RELAYED 08/01/[address] MCBRIDE. PREVIOUS PLATELET COUNT ON 07/30/19 WAS 159. PATIENT HAS HX OF BUE DVT. MD AWARE AND ORDERED TO GIVE LOVENOX AND ENDORSE TO AM SHIFT TO F/U WITH AM DOCTOR.
[2019-08-03] VITALS: BP 107/53
[2019-08-03 04:00] VITALS: BP 130/67
[2019-08-03] MEDS: BLOOD SUGAR DIAGNOSTIC 1 EACH STRIP IN SCH ×4 (05:38→23:46)
[2019-08-03] MEDS: INSULIN REGULAR, HUMAN 100 UNIT/ML 3 ML VIAL SQ PRN ×4 (05:47→23:54)
[2019-08-03] MEDS: [UNRECOGNIZED DRUG - OTHER] GT PRN ×3 (06:04→21:44)
[2019-08-03 06:47] LABS: BASOPHILS % (AUTO) 0.5 % (0.0-2.0); HEMATOCRIT 28 % (33-45); HEMOGLOBIN 9.3 g/dL (11.5-14.8); LYMPHOCYTES % (AUTO) 20.8 % (20.0-44.0); MEAN CORPUSCULAR HGB CONC 34 g/dl (31.0-36.0); MEAN CORPUSCULAR VOLUME 93 fL (82-100); MONOCYTES # (AUTO) 0.4 /CMM (0.1-1.30); MONOCYTES % (AUTO) 8.3 % (2.0-12.0); NEUTROPHILS # (AUTO) 3.1 /CMM (1.8-8.9); NEUTROPHILS % (AUTO) 66.4 % (43.0-81.0); PLATELET COUNT (AUTO) 149 /CMM (150-450); RED BLOOD CELL COUNT(AUTO) 2.97 MIL/uL (4.0-5.2); WHITE BLOOD COUNT (AUTO) 4.7 K/uL (4.3-11.0)
--- NOTE | 2019-08-03 07:00 | NUR ---
RN CLOSING NOTES: PATIENT ASLEEP BUT EASILY AWAKENED. NONVERBAL. OPENS EYES SPONTANEOUSLY WITH LIGHT TOUCH. NO RESPIRATORY DISTRESS. TOLERATING COOL AEROSOL, SATTING 100%. ON CLIENT BUSINESS MANAGER SHOWING V-PACING, HR 60. TURNED AND REPOSITIONED PER PROTOCOL DURING SHIFT. WOUND CARE TX DONE ORDERED. SAFETY PRECAUTIONS IMPLEMENTED. BED LOCKED AND IN LOWEST POSITION. ENDORSED TO AM SHIFT NURSE FOR CONTINUITY OF CARE. ALSO ENDORSED PLATELET COUNT TO F/U WITH AM DOCTOR PER DR. MCBRIDE.
--- NOTE | 2019-08-03 07:00 | NUR ---
PROCESS ENGINEERING TECHNICIAN OPENING NOTES PATIENT IS AWAKE BUT IS EASILY AWAKENED PATIENT IS NO VERBAL. AND OPENS EYES WITH LIGHT, TOUCH AND NAME . PATIENT SHOWS NO SIGNS OF DISDRESS AND TOLERATING COOL AEROSOL. PATIENT IS SATURATING AT 100% . PATIENT IS SHOWING V PACING , 60'S PATIENT CURRENTLY HAS (R) FA MIDLINE WITH TKO, LINE IS PATENT AND FLUSHED. SAFETY PRECAUTION IMPLEMENTED. BED LOCK AND LOWEST POSITION. CALL LIGHT WITH IN REACH.
[2019-08-03 08:00] VITALS: BP 124/48
[2019-08-03] MEDS: COQ10 GT SCH ×2 (09:00→17:00)
[2019-08-03] MEDS: MULTIVITAMINS,THERAGRAN 1 UDTAB TABLET GT SCH (09:13)
[2019-08-03] MEDS: LEVETIRACETAM (250 MG) 250 MG TABLET PO SCH ×2 (09:14→20:40)
[2019-08-03] MEDS: ASPIRIN 81 MG TAB.CHEW GT SCH (09:14)
[2019-08-03] MEDS: CARNITINE 500 MG GT SCH ×2 (09:14→18:10)
[2019-08-03] MEDS: COLOSTRUM PO SCH (09:16)
[2019-08-03] MEDS: ENOXAPARIN SODIUM 60 MG/0.6 ML DISP.SYRIN SQ SCH ×2 (09:26→20:40)
[2019-08-03] MEDS: MEDIHONEY TP SCH (09:27)
[2019-08-03] MEDS: THERAHONEY GEL 1.5 OZ TUBE TP SCH (09:28)
[2019-08-03] MEDS: Z GUARD REMEDY 2 OZ OINT TP SCH (09:28)
[2019-08-03 12:00] VITALS: BP 112/39
[2019-08-03 16:00] VITALS: BP 101/74
[2019-08-03] MEDS: WARFARIN SODIUM 5 MG TABLET PO SCH (18:12)
--- NOTE | 2019-08-03 19:05 | NUR ---
RN BARIATRIC CLOSING NOTES PATIENT IS AWAKE BUT EASILY AWAKED WITH TOUCH. NAME, LIGHT PAIN. PATIENTS EYES OPENS SPONTANEOUSLY . PATIENT IS SATURATING WELL WITH COOL AEROSOL. PATIENT SHOWS NO SIGNS OF RESPIRATORY DISTRESS. AND SATURATING AT 100 % PATIENT TURN PER HOSPITAL PROTOCOL. WOUNDS TREATMENT DONE ORDERED. MEDICATION MANAGEMENT ORDERED. SAFETY PRECAUTIONS IMPLEMENTED . BED LOCKED AND IN LOWEST POSITION. PATIENT ENDORSED TO PM SHIFT.
[2019-08-03 20:00] VITALS: BP 106/35
--- NOTE | 2019-08-03 20:00 | NUR ---
RN NOTES RECEIVED PT. AWAKE NON -VERBAL CAREGIVER AT BEDSIDE, ON COOL AEROSOL SATURATING 100%, SR ON TELE MONITOR HR-60, NOT IN DISTRESS, FEEDING RUNNING @ 85ML/HR, TOLERATING FAIRLY, SIDERAILSUPX2, CALL LIGHT WITHIN REACH, WILL CONTINUE TO MONITOR
[2019-08-03] MEDS: IV NS 0.9% 1,000 ML IV PRN (21:45)
--- NOTE | 2019-08-03 22:40 | NUR ---
RN NOTES CALLED PT. DAUGHTER CLEMENT AND INFORMED HER THAT PT. DOESN'T HAVE BOTTLED WATER ANYMORE... PER CLEMENT WE CAN USE ANY BOTTLED WATER BUT NOT TAP WATER
--- NOTE | 2019-08-03 23:02 | NUR ---
RN NOTES RECEIVED PT. AWAKE NON -VERBAL CAREGIVER AT BEDSIDE, ON COOL AEROSOL SATURATING 100%, SR ON TELE MONITOR HR-60, NOT IN DISTRESS, FEEDING RUNNING @ 85ML/HR, TOLERATING FAIRLY, SIDERAILSUPX2, CALL LIGHT WITHIN REACH, WILL CONTINUE TO MONITOR Addendum: 08/03/19 at 2306 by ISADORA NASH RN RIGHT TIME 1999
--- NOTE | 2019-08-03 23:40 | NUR ---
RN NOTES YANIRA FROM [facility] CALLED AND WAS ASKING IF PATIENT STILL GOING TO BE TRANSFER TO [facility]... INFORMED HER THAT WERE GOING TO ASKED THE BRIDGE/STRUCTURE INSPECTION TEAM LEADER TOMORROW... PER YANIRA THERE'S NO AVAILABLE BED YET. CHARGE NURSE MADE AWARE
[2019-08-04] VITALS (8 sets, daily range): BP systolic 140–148; BP diastolic 61–70
[2019-08-04] MEDS: BLOOD SUGAR DIAGNOSTIC 1 EACH STRIP IN SCH ×3 (06:10→17:10)
[2019-08-04] MEDS: INSULIN REGULAR, HUMAN 100 UNIT/ML 3 ML VIAL SQ PRN ×3 (06:13→18:00)
--- NOTE | 2019-08-04 06:32 | NUR ---
RN NOTES AWAKE, MORNING CARE RENDERED, G-TUBE FEEDING RUNNING FAIRLY, NO RESIDUAL NOTED, NOT IN DISTRESS, NO PAIN NOTED, MORNING CARE RENDERED, PT. NEEDS ATTENDED
--- NOTE | 2019-08-04 07:15 | NUR ---
PROOF MACHINE OPERATOR OPENING NOTES RECEIVED PT LYING ON BED,AWAKE AND NONVERBAL.ON TELE HR IS 60 WITH NSR WITH BBB.ON T PIECE WITH NC 6LPM O2 CONTINUOUSLY.THICK YELLOW SECRETIONS NOTED WITH FREQUENT SUCTIONING NEEDED.G TUBE IS IN PLACE WITH FEEDING IS RUNNING @85CC/HR,PROVIDED BY THE FAMILY.PT TOLERATED WELL.MINIMAL GASTRIC RESIDUAL NOTED.NO ABDOMINAL DISTENSION NOTED.PT IS CLEAN,DRY AND INTACT.IV LINE IS ON RIGHT FA MIDLINE WITH IV NS @50ML/HR IS RUNNING,SITE IS CLEAN,DRY AND INTACT.NO INFILTRATION NOTED.SAFETY IS MAINTAINED AT ALL TIMES.CALL LIGHT IS WITHIN REACH.WILL CONTINUE TO MONITOR THE PT CLOSELY.
[2019-08-04] MEDS: ASPIRIN 81 MG TAB.CHEW GT SCH (08:27)
[2019-08-04] MEDS: LEVETIRACETAM (250 MG) 250 MG TABLET PO SCH ×2 (08:27→20:42)
[2019-08-04] MEDS: MULTIVITAMINS,THERAGRAN 1 UDTAB TABLET GT SCH (08:27)
[2019-08-04] MEDS: CARNITINE 500 MG GT SCH ×2 (08:28→17:10)
[2019-08-04] MEDS: COLOSTRUM PO SCH (08:28)
[2019-08-04] MEDS: ENOXAPARIN SODIUM 60 MG/0.6 ML DISP.SYRIN SQ SCH ×2 (08:34→20:43)
[2019-08-04] MEDS: Z GUARD REMEDY 2 OZ OINT TP SCH (08:35)
[2019-08-04] MEDS: MEDIHONEY TP SCH (08:36)
[2019-08-04] MEDS: THERAHONEY GEL 1.5 OZ TUBE TP SCH (08:37)
--- NOTE | 2019-08-04 10:00 | NUR ---
PICKUP DRIVER NOTES CALLED THE PHARMACY,SPOKE WITH MATT,PHARMACIST REGARDS MED COQ10 CAP.[facility] WILL DELIVER IT.WAITING FOR THE MED TO ADMINISTER.
[2019-08-04] MEDS: COQ10 GT SCH ×2 (11:45→17:07)
--- NOTE | 2019-08-04 11:46 | NUR ---
SCALE TECHNICIAN NOTES COQ10 TAB IS NOT DELIVERED YET.
--- NOTE | 2019-08-04 15:19 | NUR ---
ANVIL SEATING PRESS OPERATOR NOTES URINE IS COLLECTED FOR UA,FAMILY IS AT BEDSIDE.SEND TO THE LAB.
[2019-08-04 17:06] LABS: APPEARANCE,URINE SL CLOUDY (CLEAR); BILIRUBIN,URINE NEGATIVE (NEGATIVE); BLOOD, URINE TRACE-INTA Ery/uL (NEGATIVE); COLOR,URINE YELLOW (YELLOW); KETONES,URINE NEGATIVE (NEGATIVE); LEUKOCYTE ESTERASE ,URINE LARGE (NEGATIVE); NITRITE, URINE NEGATIVE (NEGATIVE); PROTEIN,URINE NEGATIVE (NEGATIVE); UGLUCOSE NEGATIVE (NEGATIVE); UROBILINOGEN,URINE 0.2 EU/dL (0.2)
[2019-08-04 17:36] LABS: BACTERIA,URINE 1+ /HPF (None Seen); SQUAMOUS EPITHELIAL CELL,UR 0-2 /HPF (None Seen); WBC,URINE 51-80 /HPF (0-3)
--- NOTE | 2019-08-04 18:43 | NUR ---
TRAFFIC SIGNAL MECHANIC CLOSING NOTES PT IS LYING ON BED WITH G TUBE FEEDING IS GOING,PT TOLERATED WELL.MINIMAL GASTRIC RESIDUAL NOTED.FAMILY IS AT BEDSIDE.RESPIRATION IS EVEN AND NONLABORED.NO SIGNIFICANT CHANGES NOTED IN THE SHIFT.WILL ENDORSE TO PAINTER ROUGH RN FOR ABELINO..
--- NOTE | 2019-08-04 20:00 | NUR ---
TELE/RN OPENING NOTES RECEIVED PATIENT IN BED, CAN OPENS EYES, NON VERBAL ON TER AT SINUS RHYTHM. REQUIRE FREQUENT SUCTIONING, WITH G TUBE AT 85ML/HR, IV NS AT 50ML/HR, MONITOIRNG FOR ANY S/S OF HYPO/HYPERGLYCEMIA, BED LOCKED MONITORED, TURNED AND REPOSITION, CHANGES AND KEPT SKIN INTACT AND DRY, WILL MONITOR, RECEIVED ENDORSEMENT FROM AM RN FOR ABELINO.
[2019-08-05] MEDS: BLOOD SUGAR DIAGNOSTIC 1 EACH STRIP IN SCH ×4 (00:11→18:55)
[2019-08-05 04:00] VITALS: BP 124/52
--- NOTE | 2019-08-05 06:00 | NUR ---
TELE/RN NOTES PATIENT IN BED, HOB ELEVATED, ON COOLING AEROSOL WITH 100% SATURATION. REQUIRE SUCTIONING NEEDE, BED LOCKED, CALL LIGHTS WITHIN REACH, GTUBE PATENT, IV FLUIDS RUNNING AT 50 CC/HR. SKIN WARM TO TOUCH. REPOSTIONED AND TURNED, WOUND DRESSING CHANGE. BLOOD SUGAR CHECK AND COVERGAE GIVEN,. WILL ENDORSE TO AM RN FOR ABELINO.
[2019-08-05] MEDS: INSULIN REGULAR, HUMAN 100 UNIT/ML 3 ML VIAL SQ PRN ×2 (06:20→14:09)
--- NOTE | 2019-08-05 07:00 | NUR ---
LINING FELLER BLINDSTITCH INITIAL NOTES PATIENT RECEIVED BY PM SHIFT PATIENT IS ASLEEP BUT EASILY AROUSED WITH TOUCH AND NAME. PATIENT IS NON VERBAL BUT IS ABLE TO TRACK WITH EYES. PATIENT IS ON COOL AIR AEROSOL AND SATURATING AT 100 PERCENT. PATIENT SHOWS NO SIGNS OF DISTRESS. PATIENT IS CURRENTLY ON NS 50 ML/HR PATIENT HAS L AC INTACT, CLEAN AND DRY WITH C/D/I . PATIENT GTUBE 85 ML/ HR PATIENT LUNGS HAD CRACKLES AND SUCTION. PATIENT BED IN LOWEST .SAFETY MAINTAINED CALL LIGHT WITH IN REACH.
[2019-08-05] MEDS: COQ10 GT SCH ×2 (09:47→16:51)
[2019-08-05] MEDS: LEVETIRACETAM (250 MG) 250 MG TABLET PO SCH ×2 (09:47→21:38)
[2019-08-05] MEDS: CARNITINE 500 MG GT SCH ×2 (09:47→16:51)
[2019-08-05] MEDS: COLOSTRUM PO SCH (09:51)
[2019-08-05] MEDS: MULTIVITAMINS,THERAGRAN 1 UDTAB TABLET GT SCH (09:51)
[2019-08-05] MEDS: MEDIHONEY TP SCH (10:09)
[2019-08-05] MEDS: Z GUARD REMEDY 2 OZ OINT TP SCH (10:09)
[2019-08-05] MEDS: ASPIRIN 81 MG TAB.CHEW GT SCH (10:10)
[2019-08-05] MEDS: THERAHONEY GEL 1.5 OZ TUBE TP SCH (10:10)
[2019-08-05] MEDS: ENOXAPARIN SODIUM 60 MG/0.6 ML DISP.SYRIN SQ SCH ×2 (10:43→21:40)
[2019-08-05 12:00] VITALS: BP 130/54
[2019-08-05 12:59] LABS: BASOPHILS % (AUTO) 0.7 % (0.0-2.0); EOSINOPHILS % (AUTO) 5.4 % (0.0-6.0); HEMATOCRIT 26 % (33-45); HEMOGLOBIN 8.8 g/dL (11.5-14.8); LYMPHOCYTES # (AUTO) 0.9 /CMM (0.8-4.8); LYMPHOCYTES % (AUTO) 26.5 % (20.0-44.0); MEAN CORPUSCULAR HGB CONC 34 g/dl (31.0-36.0); MEAN CORPUSCULAR VOLUME 93 fL (82-100); MONOCYTES # (AUTO) 0.3 /CMM (0.1-1.30); MONOCYTES % (AUTO) 8.6 % (2.0-12.0); NEUTROPHILS % (AUTO) 58.8 % (43.0-81.0); PLATELET COUNT (AUTO) 149 /CMM (150-450); RED BLOOD CELL COUNT(AUTO) 2.83 MIL/uL (4.0-5.2); WHITE BLOOD COUNT (AUTO) 3.4 K/uL (4.3-11.0)
[2019-08-05 13:00] LABS: CALCIUM, SERUM 8.1 mg/dL (8.5-10.1); CARBON DIOXIDE 30 mmol/L (21-32); CHLORIDE 101 mmol/L (98-107); CREATININE 0.4 mg/dL (0.6-1.3); GLUCOSE 121 mg/dL (74-106); POTASSIUM 4.8 mmol/L (3.5-5.1); SODIUM SERUM 133 mmol/L (136-145); UREA NITROGEN, BLOOD 19 mg/dL (7-18)
[2019-08-05 16:00] VITALS: BP 120/52
[2019-08-05] MEDS: IV NS 0.9% 1,000 ML IV PRN (18:56)
--- NOTE | 2019-08-05 19:10 | NUR ---
[place] POLICE LIEUTENANT NOTES RECEIVED PT IN BED AND AWAKE WITH FAMILY AT BEDSIDE. PT CAN OPENS EYES AND IS NON-VERBAL. PT ON TELE SINUS RHYTHM. RESPIRATIONS EVEN AND UNLABORED WITH NO S/S OF ACUTE DISTRESS OR SOB NOTED. WITH G TUBE AT 85ML/HR. PT WITH MIDLINE INFUSING NS AT 50ML/HR. NO S/S OF PAIN AT THIS TIME. SAFETY MEASURES IN PLACE WITH BED IN LOWEST, LOCKED POSITION WITH SIDE RAILS UP X2. CALL LIGHT WITHIN REACH. WILL CONTINUE TO MONITOR.
--- NOTE | 2019-08-05 19:30 | NUR ---
ROTARY DRIER FEEDER CLOSING NOTES PATIENT ENDORSED TO PM SHIFT. PATIENT IS SATURATING WELL ON COOL AEROSOL @ 100 % PATIENT SHOWS NO SIGNS OF DISTRESS. PATIENTS DAUGHTER WAS INFORMED ABOUT PATIENT SITUATION AND UPDATED WITH MEDICATION AND TREATMENT PLAN. PATIENT TURNED Q2H . WOUNDS CLEANED AND DRY . PATIENT BED IN LOWEST POSITION. SAFETY MAINTAINED CALL LIGHT WITH IN REACH.
[2019-08-05 20:00] VITALS: BP 129/60
[2019-08-06] VITALS: BP 143/56
[2019-08-06] MEDS: BLOOD SUGAR DIAGNOSTIC 1 EACH STRIP IN SCH ×4 (00:26→18:32)
[2019-08-06] MEDS: INSULIN REGULAR, HUMAN 100 UNIT/ML 3 ML VIAL SQ PRN ×4 (00:31→18:44)
[2019-08-06] MEDS: [UNRECOGNIZED DRUG - OTHER] GT PRN ×4 (00:41→18:34)
[2019-08-06 04:00] VITALS: BP 133/59
--- NOTE | 2019-08-06 06:59 | NUR ---
BUSINESS AND SERVICES INSTRUCTOR NOTES PT IN BED AND ASLEEP BUT EASILY AWOKEN VERBALLY OR BY TOUCH. PT CAN OPENS EYES AND IS NON-VERBAL. PT ON TELE SINUS RHYTHM. RESPIRATIONS EVEN AND UNLABORED WITH NO S/S OF ACUTE DISTRESS OR SOB NOTED THROUGHOUT SHIFT. PT WITH G TUBE AT 85ML/HR. PT WITH MIDLINE INFUSING NS AT 50ML/HR. NO S/S OF PAIN AT THIS TIME. SAFETY MEASURES IN PLACE WITH BED IN LOWEST, LOCKED POSITION WITH SIDE RAILS UP X2. TURNED PT Q2 HOURS THROUGHOUT SHIFT. PT KEPT CLEAN, DRY, AND COMFORTABLE. CALL LIGHT WITHIN REACH. WILL ENDORSE TO ONCOMING NURSE FOR ABELINO.
[2019-08-06 08:00] VITALS: BP 141/42
[2019-08-06] MEDS: COLOSTRUM PO SCH (09:00)
[2019-08-06] MEDS: ASPIRIN 81 MG TAB.CHEW GT SCH (09:00)
[2019-08-06] MEDS: ENOXAPARIN SODIUM 60 MG/0.6 ML DISP.SYRIN SQ SCH ×2 (09:00→20:08)
[2019-08-06] MEDS: CARNITINE 500 MG GT SCH ×2 (09:00→17:00)
[2019-08-06] MEDS: MULTIVITAMINS,THERAGRAN 1 UDTAB TABLET GT SCH (09:00)
[2019-08-06] MEDS: MEDIHONEY TP SCH (09:00)
[2019-08-06] MEDS: Z GUARD REMEDY 2 OZ OINT TP SCH (09:00)
[2019-08-06] MEDS: THERAHONEY GEL 1.5 OZ TUBE TP SCH (09:00)
[2019-08-06] MEDS: LEVETIRACETAM (250 MG) 250 MG TABLET PO SCH ×2 (09:00→20:06)
[2019-08-06] MEDS: COQ10 GT SCH ×2 (09:00→17:00)
[2019-08-06 12:00] VITALS: BP 143/44
[2019-08-06] MEDS: CLOTRIMAZOLE 1% 15 GM TUBE TP SCH ×2 (14:30→17:00)
[2019-08-06] MEDS: IV NS 0.9% 1,000 ML IV PRN (14:45)
[2019-08-06] MEDS: CEFTRIAXONE 1 G in IV D5W 50 ML IV SCH (15:00)
[2019-08-06 16:00] VITALS: BP_SYST 111; BP_SYST 141; BP_DIAS 57
--- NOTE | 2019-08-06 18:27 | NUR ---
CAREGIVER ED AT BEDSIDE HAS INFORMED RN THAT SHE HAS BEEN GIVING PATIENT "VITAMINS BY MOUTH THAT MELT UNDER HER TONGUE INSTRUCTED BY THE DAUGHTER" THEY ARE PELLETS. EDUCATED ON RISK FOR ASPIRATION, VERBALIZES UNDERSTANDING STATING "I HAVE RESPIRATORY TRAINING"
--- NOTE | 2019-08-06 19:00 | NUR ---
BINDING STITCHER CLOSING NOTES PATIENT REMAINS NONVERBAL, UNABLE TO TRACK OR FOLLOW COMMAND, RESPONDS TO TACTILE STIMULI. PUPILS REACTIVE. ATTACHED TO 6L O2 VIA T PIECE, NO RESPIRATORY DISTRESS NOTED, CHEST RISE EVEN AND UNLABORED, PULSE OX ALARM ATTACHED AND AUDIBLE, SPO2 100%. TELE MONITOR ATTACHED, V PACING, HR 60. EMERGENCY EQUIPMENT + SUCTION AT BEDSIDE. GTF RUNNING HOME FORMULA @85mL/HR PER FAMILY REQUEST, NO RESIDUAL NOTED THROUGHOUT SHIFT. RIGHT FOREARM MIDLINE REMAINS CLEAN, DRY, INTACT, PATENT. HOB ELEVATED AT ALL TIMES FOR ASPIRATION PRECAUTION. SEIZURE PRECAUTIONS IN PLACE. NO SEIZURE ACTIVITY NOTED THIS SHIFT. SUCTIONED PRN. BED LOCKED, LOW, SIDE RAILS UPx2, CALL LIGHT WITHIN REACH, CAREGIVER AT BEDSIDE. TURNED PER PROTOCOL. WOUND CARE COMPLETED. ALL MEDS GIVEN. PATIENT'S DAUGHTER OKAY WITH ANTIBIOTIC ADMINISTRATION + REPORTEDLY SPOKE TO CM TODAY. ENDORSED TO MANOHAR RN FOR ABELINO
--- NOTE | 2019-08-06 19:30 | NUR ---
HOSPICE/HOME HEALTH AIDE OPENING NOTES RECEIVED PATIENT NON-VERBAL AND OBTUNDED ON T-PIECE WITH O2 SAT AT 98% WITH NO SIGNS OF ANY DISTRESS OR SOB. PATIENT HAS A RT FOREARM IV MIDLINE WITH NS RUNNING AT 50ML/HR. PATIENT ON THE MONITOR SHOWS V-PACING WITH HR IN THE 60'S. PATIENT HAS GTUBE WITH LITTLE RESIDUAL AND FEEDING OF SPECIFIC FORMULA REQUESTED BY FAMILY. ALL SAFETY PRECAUTIONS HAVE BEEN APPLIED WILL CONTINUE TO MONITOR PATIENT.
[2019-08-06 20:00] VITALS: BP 158/50
[2019-08-06] MEDS: LORAZEPAM INJ 2 MG/ML VIAL IV PRN (20:22)
[2019-08-07] VITALS (7 sets, daily range): BP systolic 104–147; BP diastolic 29–61
[2019-08-07] MEDS: BLOOD SUGAR DIAGNOSTIC 1 EACH STRIP IN SCH ×5 (00:14→23:50)
[2019-08-07] MEDS: INSULIN REGULAR, HUMAN 100 UNIT/ML 3 ML VIAL SQ PRN ×3 (05:36→17:34)
[2019-08-07 06:32] LABS: CALCIUM, SERUM 8.1 mg/dL (8.5-10.1); CARBON DIOXIDE 27 mmol/L (21-32); CHLORIDE 97 mmol/L (98-107); CREATININE 0.4 mg/dL (0.6-1.3); GLUCOSE 235 mg/dL (74-106); POTASSIUM 4.8 mmol/L (3.5-5.1); SODIUM SERUM 130 mmol/L (136-145); UREA NITROGEN, BLOOD 16 mg/dL (7-18)
[2019-08-07 06:48] LABS: BASOPHILS % (AUTO) 0.3 % (0.0-2.0); EOSINOPHILS % (AUTO) 1.8 % (0.0-6.0); HEMATOCRIT 28 % (33-45); HEMOGLOBIN 9.3 g/dL (11.5-14.8); LYMPHOCYTES # (AUTO) 0.9 /CMM (0.8-4.8); LYMPHOCYTES % (AUTO) 16.4 % (20.0-44.0); MEAN CORPUSCULAR HGB CONC 34 g/dl (31.0-36.0); MEAN CORPUSCULAR VOLUME 92 fL (82-100); MONOCYTES # (AUTO) 0.4 /CMM (0.1-1.30); MONOCYTES % (AUTO) 7.6 % (2.0-12.0); NEUTROPHILS % (AUTO) 73.9 % (43.0-81.0); PLATELET COUNT (AUTO) 166 /CMM (150-450); RED BLOOD CELL COUNT(AUTO) 2.98 MIL/uL (4.0-5.2); WHITE BLOOD COUNT (AUTO) 5.4 K/uL (4.3-11.0)
[2019-08-07 07:11] LABS: IRON, SERUM 27 ug/dl (50-175); TOTAL IRON BINDING CAPACITY 230 ug/dl (250-450)
--- NOTE | 2019-08-07 07:40 | NUR ---
AIRCRAFT MAINTENANCE INSTRUCTOR CLOSING NOTES PATIENT IN BED WITH NO SIGN OF ANY DISTRESS. PATIENT CONTINUES T-PIECE WITH 6L OF 02 AT 28%. SUCTION NEEDED. GTUBE FEEDING RUNNING WITH NO SIGN OF OBSTRUCTION. NS RUNNING AT 50ML/HR. ALL SAFETY PRECATIONS APPLIED. ENDORSED PATIENT TO MORNING SHIFT NURSE.
--- NOTE | 2019-08-07 07:40 | NUR ---
GROUNDS PERSON NOTES PT IN BED, ASLEEP, EASY TO AROUSE, NO SIGN OF PAIN OR DISTRESS, GT FEEDING INFUSING WELL, IV FLUIDS INFUSING WELL, TURNED AND REPOSITIONED, KEPT WARM AND COMFORTABLE IN BED.
[2019-08-07] MEDS: COLOSTRUM PO SCH (08:17)
[2019-08-07] MEDS: COQ10 GT SCH ×2 (08:18→16:02)
[2019-08-07] MEDS: ASPIRIN 81 MG TAB.CHEW GT SCH (08:18)
[2019-08-07] MEDS: CARNITINE 500 MG GT SCH ×2 (08:18→16:02)
[2019-08-07] MEDS: MULTIVITAMINS,THERAGRAN 1 UDTAB TABLET GT SCH (08:18)
[2019-08-07] MEDS: Z GUARD REMEDY 2 OZ OINT TP SCH (08:19)
[2019-08-07] MEDS: CLOTRIMAZOLE 1% 15 GM TUBE TP SCH ×2 (08:19→16:02)
[2019-08-07] MEDS: MEDIHONEY TP SCH (08:21)
[2019-08-07] MEDS: LEVETIRACETAM (250 MG) 250 MG TABLET PO SCH ×2 (08:23→20:43)
[2019-08-07] MEDS: ENOXAPARIN SODIUM 60 MG/0.6 ML DISP.SYRIN SQ SCH ×2 (08:48→20:42)
--- NOTE | 2019-08-07 10:00 | NUR ---
BALL POINTS INSPECTOR NOTES PT HAD AN EPISODE OF LOW O2 SAT, BETWEEN 85-88%, KEPT HOB ELEVATED, SUCTIONED NEEDED, RT AT BEDSIDE, DR. CAMPOS MADE AWARE, ORDERED STAT ABG, WITH PT POSSIBLE TO BE PUT BACK ON THE VENT, ORDERS NOTED AND CARRIED OUT.
[2019-08-07 10:31] LABS: ABG OXYGEN SATURATION 81.4 % (92.0-98.5); ABG PCO2 42.8 mmHg (35.0-45.0); ABG PH 7.401 (7.350-7.450); ABG PO2 48.3 mmHg (75.0-100.0); AaDO2 187.7 mmHg; COHb 0.3 % (0.5-1.5); MetHb 0.5 % (0.0-1.5); O2Hb 80.7 % (94.0-97.0); SITE, ABG Left Brachial; VENT MODE, BG CA
--- NOTE | 2019-08-07 10:51 | NUR ---
KNEE BOLTER NOTES PT PLACED BACK ON THE VENT ORDERED BY DR. CAMPOS, CALLED PT'S DAUGHTER LUIS AT [phone] SEVERAL TIMES, HER PHONE DOES NOT ACCEPT MESSAGES AT THIS TIME.
--- NOTE | 2019-08-07 10:55 | NUR ---
RT PLACED PT ON VENT WITH NOTED SETTINGS PER DR CAMPOS POST ABG RESULTS. PRODUCT DEVELOPMENT CHEMIST DONE AND TRACH IS SECURE. SX WITH SML THK WHITE SECRETIONS. VENT PLUGGED IN RED OUTLET. ALARMS CHECKED AND AUDIBLE. KARELYBal SKINNER NOTED HOB. PT ON CONTINUOUS PULSE OX. WILL CONTINUE TO MONITOR T/O SHIFT. Addendum: 08/07/19 at 1058 by JARED JUNIOR RT Amended: Links added.
[2019-08-07] MEDS: IV NS 0.9% 1,000 ML IV PRN (11:27)
[2019-08-07] MEDS: THERAHONEY GEL 1.5 OZ TUBE TP SCH (11:41)
[2019-08-07] MEDS: [UNRECOGNIZED DRUG - OTHER] GT PRN (11:55)
--- NOTE | 2019-08-07 13:24 | NUR ---
FIELD MARKETING DIRECTOR NOTES PT RESTING IN BED, NO SIGN OF PAIN, NOT IN DISTRESS, BACK ON VENT, O2 SAT AT 100%, DAUGHTER LUIS INFORMED, TURNED AND REPOSITIONED Q2 HOURS, KEPT CLEAN AND DRY, KEPT WARM AND COMFORTABLE.
[2019-08-07] MEDS: CEFTRIAXONE 1 G in IV D5W 50 ML IV SCH (15:08)
--- NOTE | 2019-08-07 16:25 | NUR ---
dr. michaels notified regarding dose missed yesterday rocephin ,no new orders.
--- NOTE | 2019-08-07 18:11 | NUR ---
BASEBOARD HEATING INSTALLER NOTES PT IN BED, RESTING, NO FACIAL GRIMACING OR MOANING, NOT IN DISTRESS, ON VENT, O2 SAT 100%, SUCTIONED SECRETIONS NEEDED, KEPT HOB ELEVATED, WOUND TREATMENTS AND DRESSING CHANGE DONE, TURNED AND REPOSITIONED Q2 HOURS, GT FEEDING INFUSING WELL, TOLERATING WELL, PM CARE PROVIDED, ALL NEEDS ATTENDED.
--- NOTE | 2019-08-07 19:10 | NUR ---
CASTER INVESTMENT CASTING OPENING NOTES RECEIVED PATIENT RESTING IN BED, NONVERBAL. NO SIGNS OF DISTRESS NOTED. ON TELE MONITOR SR WITH HR 60'S, A PACING. ON TRACH MECHANICAL VENT SETTINGS ORDERED, TOLERATING WELL, O2SAT 100%. NO SOB AND ACUTE DISTRESS NOTED. IV SITE RIGHT FA MIDLINE, SITE CLEAN, DRY AND INTACT, FLUSHING AND PATENT, IV FLUIDS RUNNING ORDERED, NO INFILTRATION NOTED. GTF NOTED FLUSHING AND PATENT, RUNNING AT 85CC/HR, 60ML RESIDUAL NOTED. SAFETY MEASURES IN PLACE AND MAINTAINED AT ALL TIMES; CALL LIGHT WITHIN REACH, SIDE RAILS UP X2, HOB ELEVATED AT ALL TIMES. WILL CONTINUE TO MONITOR PT CLOSELY. Addendum: 08/08/19 at 0217 by PIERRE PEGUERO RN IN ADDITION, PER AM RN, PATIENT ONLY HAS 1 [employer] BOX AND LIQUID HOPE FOR PATIENT'S GTUBE FEEDING, DAUGHTER AWARE.
--- NOTE | 2019-08-07 21:10 | NUR ---
PT RECEIVED TRACHED WITH [place] 8 ON VENT WITH NOTED SETTINGS . VENT ALARMS CHECKED AND AUDIBLE. LINEN ROOM ATTENDANT CUFF PRESSURE CHECKED. SX DONE . AMBU BAG AT HEAD OF BED. HOB AT 30 DEGREES. WILL CONTINUE TO MONITOR T/O SHIFT.
[2019-08-08] VITALS: BP 147/42
[2019-08-08] MEDS: INSULIN REGULAR, HUMAN 100 UNIT/ML 3 ML VIAL SQ PRN ×4 (00:07→18:20)
[2019-08-08] MEDS: [UNRECOGNIZED DRUG - OTHER] GT PRN (02:23)
[2019-08-08 04:00] VITALS: BP 146/47
[2019-08-08] MEDS: BLOOD SUGAR DIAGNOSTIC 1 EACH STRIP IN SCH ×4 (06:17→23:56)
--- NOTE | 2019-08-08 07:10 | NUR ---
SQUADRON WORKER OPENING NOTES PT KEPT CLEAN, DRY, AND COMFORTABLE. NOT IN ANY DISTRESS AT THE MOMENT. NO ACUTE CHANGES THROUGHOUT SHIFT. PT IN BED, VENT TRACH DEPENDENT, TOLERATING SETTINGS WELL, NO SIGNS OF RESPIRATORY DISTRESS, RESPIRATIONS EVEN AND UNLABORED. NS INFUSING AT 50CC/HR INTO MIDLINE ON RIGHT FOREARM, NO INFILTRATION NOTED. GTF FEEDING INFUSING AT 85CC/HR, PT TOLERATING FEEDING WELL. SAFETY MEASURES MAINTAINED. ENDORSED TO AM RN FOR ABELINO. Addendum: 08/08/19 at 0750 by PIERRE PEGUERO RN CLARIFICATION: SQUADRON WORKER CLOSING NOTES
--- NOTE | 2019-08-08 07:19 | NUR ---
SELF PAY COLLECTOR OPENING NOTES RECEIVED REPORT FROM [facility] SHIFT NURSE. PT IN BED, VENT TRACH DEPENDENT, TOLERATING SETTINGS WELL, NO SIGNS OF RESPIRATORY DISTRESS, RESPIRATIONS EVEN AND UNLABORED. NS INFUSING AT 50CC/HR INTO MIDLINE ON RIGHT FOREARM. GTF FEEDING INFUSING AT 85CC/HR, PT TOLERATING FEEDING WELL. BED IN LOW POSITION, LOCKED, CALL LIGHT WITHIN REACH.
[2019-08-08] MEDS: IV NS 0.9% 1,000 ML IV PRN (07:48)
[2019-08-08 08:00] VITALS: BP 136/47
--- NOTE | 2019-08-08 08:04 | NUR ---
RT PT RECEIVED TRACHED ON MECHANICAL VENTILATION WITH NOTED SETTINGS. PT IS AWAKE BUT DOES NOT FOLLOW COMMANDS. VENT PLUGGED IN TO RED OUTLET, AMBU BAG AT HEAD OF BED. SPARE TRACH AT BEDSIDE. NO SOB OR RESP DISTRESS AT THIS TIME. WILL CONTINUE TO MONITOR. Addendum: 08/08/19 at 1404 by SG JOSE RT Amended: Links added.
[2019-08-08] MEDS: ASPIRIN 81 MG TAB.CHEW GT SCH (08:16)
[2019-08-08] MEDS: THERAHONEY GEL 1.5 OZ TUBE TP SCH (08:17)
[2019-08-08] MEDS: CLOTRIMAZOLE 1% 15 GM TUBE TP SCH ×2 (08:17→18:17)
[2019-08-08] MEDS: Z GUARD REMEDY 2 OZ OINT TP SCH (08:17)
[2019-08-08] MEDS: COQ10 GT SCH ×2 (08:30→18:16)
[2019-08-08] MEDS: CARNITINE 500 MG GT SCH ×2 (08:30→18:16)
[2019-08-08] MEDS: LEVETIRACETAM (250 MG) 250 MG TABLET PO SCH ×2 (08:30→21:20)
[2019-08-08] MEDS: ENOXAPARIN SODIUM 60 MG/0.6 ML DISP.SYRIN SQ SCH ×2 (08:32→21:23)
[2019-08-08] MEDS: COLOSTRUM PO SCH (08:33)
[2019-08-08] MEDS: MEDIHONEY TP SCH (08:33)
[2019-08-08] MEDS: MULTIVITAMINS,THERAGRAN 1 UDTAB TABLET GT SCH (08:40)
[2019-08-08 12:00] VITALS: BP 117/48
[2019-08-08] MEDS ORDERED: CEFT1VIA14 IJ (12:24)
[2019-08-08] MEDS ORDERED: LEVE250T2 PO (12:24)
[2019-08-08] MEDS ORDERED: ENOX60DI SQ (12:24)
--- NOTE | 2019-08-08 13:49 | NUR ---
GAVE REPORT TO BLUE ALLRED FOR ABELINO
[2019-08-08] MEDS: CEFTRIAXONE 1 G in IV D5W 50 ML IV SCH (14:29)
[2019-08-08 16:00] VITALS: BP 111/30
[2019-08-08 16:10] LABS: BASOPHILS % (AUTO) 0.3 % (0.0-2.0); EOSINOPHILS % (AUTO) 3.3 % (0.0-6.0); HEMATOCRIT 23 % (33-45); HEMOGLOBIN 7.9 g/dL (11.5-14.8); LYMPHOCYTES # (AUTO) 0.7 /CMM (0.8-4.8); LYMPHOCYTES % (AUTO) 17.6 % (20.0-44.0); MEAN CORPUSCULAR HGB CONC 34 g/dl (31.0-36.0); MEAN CORPUSCULAR VOLUME 92 fL (82-100); MONOCYTES # (AUTO) 0.3 /CMM (0.1-1.30); MONOCYTES % (AUTO) 8.3 % (2.0-12.0); NEUTROPHILS # (AUTO) 2.6 /CMM (1.8-8.9); NEUTROPHILS % (AUTO) 70.5 % (43.0-81.0); PLATELET COUNT (AUTO) 116 /CMM (150-450); RED BLOOD CELL COUNT(AUTO) 2.52 MIL/uL (4.0-5.2); WHITE BLOOD COUNT (AUTO) 3.8 K/uL (4.3-11.0)
[2019-08-08 16:28] LABS: CALCIUM, SERUM 7.9 mg/dL (8.5-10.1); CARBON DIOXIDE 28 mmol/L (21-32); CHLORIDE 100 mmol/L (98-107); CREATININE 0.4 mg/dL (0.6-1.3); GLUCOSE 178 mg/dL (74-106); SODIUM SERUM 131 mmol/L (136-145); UREA NITROGEN, BLOOD 20 mg/dL (7-18)
--- NOTE | 2019-08-08 18:00 | NUR ---
GILL BOX OPERATOR NOTES DAUGHTER WANTED TO KNOW ANTIBIOTIC THAT CAUSED HER MOM TO HAVE A SEIZURES. CHARGE NURSE WAS NOTIFIED ABOUT SITUATION. DAUGHTER WAS STATING THAT THE ANTIBIOTIC SHE IS CURRENTLY ON MIGHT HAVE CAUSED A SEIZURE AND SHE WAS CONCERNED. I CALLED [facility]IS[facility] TALKED TO A CHARGE NURSE. SHE NOTIFIED ME THAT THERE WAS NO ANTIBIOTIC THE PROVED THAT IT CAUSED THE SEIZURES. DAUGTHER STATE SHE WAS SURE THAT IT WAS THE ANTIBIOTIC THAT WAS HANGING AND IT CAUSE HER TO HAVE A SEIZURE. WHEN I TRIED CALLING BACK TO [facility] THEY THEY COULD NOT TALK TO THE DAUGTHER. I ASK HER TO BRADEN RIVASSE SHE KNOWS THE HISTORY ABOUT THE SITUATION. THE DAUGHTER SAID THAT SHE WOULD CALL [facility] TO FIND OUT HER SELF. OF NOW THE SHE WANTED ALL ANTIBIOTICS TO STOP BECAUSE SHE THINKS THAT IT WILL CAUSE HER MOM TO HAVE SEIZURES AND AN ADVERSE REACTION.
--- NOTE | 2019-08-08 19:30 | NUR ---
EDUCATION DIRECTOR CLOSING NOTES PATIENT ENDORSED TO PM SHIFT. PATIENT NON VERBAL, AROUSED WITH NAME AND TOUCH. PATIENT TRACKS WITH EYES. PATIENT IS VENT AND TOLERATING O2 WELL. PATIENT IS SATURATING AT 100 % . PATIENT SHOWS NO SIGNS OF DISTRESS.PATIENT WOUNDS CLEAN AND DRY PER DR ORDERS . TREATMENT PLAN FOLLOWED PER DOCTORS ORDERS WELL MEDICATION MANGEMENT. FAMILY IS AWARE OF CARE PLAN AND UPDATED. PATIENT TURNED AND REPOSITION Q2H. PATIENT BED LOWEST AND LOCKED POSITION. CALL LIGHT WITH IN REACH. SAFETY MAINTAINED.
--- NOTE | 2019-08-08 19:50 | NUR ---
TAX STAFF ACCOUNTANT NOTE: PATIENT RESTING IN BED, NO ACUTE DISTRESS NOTED. BREATHING EVEN AND UNLABORED, NO SOB NOTED. VENT SETTINGS IN PLACE. MIDLINE TO RFA IN PLACE. G-TUBE IN PLACE WITH CURRENT FEEDING, HOB ELEVATED. NO RESIDUAL AT THIS TIME. BED LOCKED AND IN LOWEST POSITION, CALL LIGHT IN REACH, WILL CONTINUE TO MONITOR.
[2019-08-08 20:00] VITALS: BP 151/46
[2019-08-09] VITALS (8 sets, daily range): BP systolic 111–152; BP diastolic 31–60
--- NOTE | 2019-08-09 00:30 | NUR ---
AIRPORT REFUELING HANDLER NOTE: PATIENT BLOOD SUGAR LEVEL 151MG/DL, PATIENT TO RECEIVE 2 UNITS OF INSULIN PER SLIDING SCALE, NO S/S OF HYPER/HYPOGLYCEMIA NOTED. WILL CONTINUE TO MONITOR.
[2019-08-09] MEDS: INSULIN REGULAR, HUMAN 100 UNIT/ML 3 ML VIAL SQ PRN ×3 (01:34→13:29)
[2019-08-09] MEDS: BLOOD SUGAR DIAGNOSTIC 1 EACH STRIP IN SCH ×3 (05:56→18:07)
--- NOTE | 2019-08-09 06:20 | NUR ---
ALUMINA PLANT SUPERVISOR NOTE: PATIENT RESTING IN BED, NO ACUTE DISTRESS NOTED. BREATHING EVEN AND UNLABORED, NO SOB NOTED. VENT SETTINGS IN PLACE. MIDLINE TO RFA IN PLACE. G-TUBE IN PLACE WITH CURRENT FEEDING. NO RESIDUAL AT THIS TIME. BED LOCKED AND IN LOWEST POSITION, CALL LIGHT IN REACH, WILL ENDORSE TO DAY NURSE TO CONTINUE WITH PLAN OF CARE.
[2019-08-09] MEDS: MULTIVITAMINS,THERAGRAN 1 UDTAB TABLET GT SCH (08:14)
[2019-08-09] MEDS: ASPIRIN 81 MG TAB.CHEW GT SCH (08:14)
[2019-08-09] MEDS: LEVETIRACETAM (250 MG) 250 MG TABLET PO SCH ×2 (08:14→21:21)
[2019-08-09] MEDS: CARNITINE 500 MG GT SCH ×2 (08:16→17:40)
[2019-08-09] MEDS: COLOSTRUM PO SCH (08:16)
[2019-08-09] MEDS: CLOTRIMAZOLE 1% 15 GM TUBE TP SCH ×2 (08:17→17:41)
[2019-08-09] MEDS: COQ10 GT SCH ×2 (08:17→17:41)
[2019-08-09] MEDS: MEDIHONEY TP SCH (08:17)
[2019-08-09] MEDS: Z GUARD REMEDY 2 OZ OINT TP SCH (08:17)
[2019-08-09] MEDS: THERAHONEY GEL 1.5 OZ TUBE TP SCH (08:18)
--- NOTE | 2019-08-09 10:27 | NUR ---
CALLED DAUGHTER ABOUT DISCHARGE. "WORRY ABOUT MOM'S HEALTH AND I WILL TAKE CARE OF THE DISCHARGE". DAUGHTER REPORTS CONCERN ABOUT ANTIBIOTIC THAT WAS ADMINISTERED PRIOR TO ICU STAY AT [place]. ATTEMPT MADE TO CALL [facility] TO OBTAIN NAME OF ANTIBIOTIC. REACHED MEDICAL RECORDS, WHERE PERSON STATED THEY CANNOT FIND HER NAME IN THE SYSTEM. SPOKE TO BRANCH SERVICE SPECIALISTCHALINO DE OLIVEIRA WHO SAID THE SAME THING. "I AM LOOKING AT MY SCREEN AND I DON'T SEE THE NAME. MAYBE THE LAST NAME WAS SPELLED INCORRECTLY." SPELLED NAME THREE TIMES, BIRTHDAY REPEATED TWICE. TOLD THAT PATIENT NOT FOUND IN COMPUTER SYSTEM. Addendum: 08/09/19 at 1316 by RIA BAUTISTA RN JAZMYNE SMITH AWARE OF THIS PHONE CONVERSATION.
--- NOTE | 2019-08-09 12:40 | NUR ---
PATIENT CAREGIVER GUERO AT BEDSIDE. "I HEARD FLATULENCE, DID SHE HAVE A BM?" . CHECKED, PATIENT HAD BOWEL MOVEMENT. CLEANED PATIENT AND CHANGED SACRAL DRESSING PER ORDERS. "DID YOU CHANGE GLOVES AFTER THE POOP?" ASKS GUERO. "TRACH LOOKS CROOKED" . ADJUSTED SLIGHTLY AND SUCTIONED. "HOW DID THE SUCTIONING GO?" ASKS GUERO. CHANGED TRACH DRESSING. PATIENT REPOSITIONED ONTO RIGHT SIDE. HOB UP, LOOKS COMFORTABLE, WILL CONT TO MONITOR
--- NOTE | 2019-08-09 13:55 | NUR ---
DR. JOHNSON AWARE OF H&H DOWNTREND, VERBALIZED OK TO GIVE LOVENOX
[2019-08-09] MEDS: ENOXAPARIN SODIUM 60 MG/0.6 ML DISP.SYRIN SQ SCH (13:58)
[2019-08-09] MEDS: CEFTRIAXONE 1 G in IV D5W 50 ML IV SCH (15:00)
--- NOTE | 2019-08-09 15:00 | NUR ---
ROCEPHIN DOSE FOR TODAY NOT GIVEN. PATIENT'S DAUGHTER STATES "IT SOUNDS SIMILAR TO THE ONE GIVEN AT [place]. SINCE WE DON'T KNOW THE NAME OF THE ABX GIVEN THERE, WE CANNOT GIVE IT. ASK DR IF CIPRO COVERS THE PATHOGEN" . WILL F/U W/ ID SPECIALIST
[2019-08-09] MEDS: [UNRECOGNIZED DRUG - OTHER] GT PRN (17:41)
--- NOTE | 2019-08-09 19:00 | NUR ---
DRINK WAITER CLOSING NOTES PATIENT REMAINS NONVERBAL, ABLE TO TRACK, AWAKE, RESPONDS TO TACTILE STIMULI. PUPILS REACTIVE. ATTACHED TO [facility] VENT, TOLERATES SETTINGS ORDERED, NO RESPIRATORY DISTRESS NOTED, CHEST RISE EVEN AND UNLABORED, PULSE OX ALARM ATTACHED AND AUDIBLE, SPO2 100%. TELE MONITOR ATTACHED, V PACING, HR 60. EMERGENCY EQUIPMENT + SUCTION AT BEDSIDE. GTF RUNNING HOME FORMULA @85mL/HR PER FAMILY REQUEST, NO RESIDUAL NOTED THROUGHOUT SHIFT. RIGHT FOREARM MIDLINE REMAINS CLEAN, DRY, INTACT, PATENT. HOB ELEVATED AT ALL TIMES FOR ASPIRATION PRECAUTION. SEIZURE PRECAUTIONS IN PLACE. NO SEIZURE ACTIVITY NOTED THIS SHIFT. SUCTIONED PRN. BED LOCKED, LOW, SIDE RAILS UPx2, CALL LIGHT WITHIN REACH, FAMILY FRIEND GUERO AT BEDSIDE. TURNED PER PROTOCOL. WOUND CARE COMPLETED. ALL MEDS GIVEN. PATIENT'S DAUGHTER REFUSING ABX ADMIN. SEE OTHER NURSING NOTES FOR DETAILS + MANISHA COMMUNICATION. ENDORSE FOLLOW UP REGARDING CIPRO TO SALES ASSISTANT CHALINO SOOD
--- NOTE | 2019-08-09 19:52 | NUR ---
MS/RN RECEIVED PATIENT AWAKE, NON VERBAL, APPEAR COMFORTABLE, NO DISTRESS NOTED, HOB ELEVATED, TUBE FEEDING INFUSING, WILL MONITOR.
[2019-08-10] VITALS (8 sets, daily range): BP systolic 99–161; BP diastolic 36–78
[2019-08-10] MEDS: BLOOD SUGAR DIAGNOSTIC 1 EACH STRIP IN SCH ×4 (00:10→17:48)
[2019-08-10] MEDS: INSULIN REGULAR, HUMAN 100 UNIT/ML 3 ML VIAL SQ PRN ×2 (00:15→17:57)
[2019-08-10] MEDS: IV NS 0.9% 1,000 ML IV PRN ×2 (00:23→20:14)
[2019-08-10] MEDS: ENOXAPARIN SODIUM 60 MG/0.6 ML DISP.SYRIN SQ SCH ×2 (01:09→12:00)
[2019-08-10] MEDS: [UNRECOGNIZED DRUG - OTHER] GT PRN (01:47)
--- NOTE | 2019-08-10 07:03 | NUR ---
TELE/RN PATIENT APPEAR SLEEPING, APPEAR COMFORTABLE, NO SIGNS OF DISTRESS NOTE, HOB ELEVATED, GT FEEDING INFUSING, HAD AN ON AND OFF SLEEP THE WHOLE SHIFT, ALL NEEDS ATTENDED AT THIS TIME, ENDORSED.
[2019-08-10 07:18] LABS: BASOPHILS % (AUTO) 0.8 % (0.0-2.0); EOSINOPHILS % (AUTO) 9.1 % (0.0-6.0); HEMATOCRIT 25 % (33-45); HEMOGLOBIN 8.2 g/dL (11.5-14.8); LYMPHOCYTES # (AUTO) 0.9 /CMM (0.8-4.8); LYMPHOCYTES % (AUTO) 24.7 % (20.0-44.0); MEAN CORPUSCULAR HGB CONC 33 g/dl (31.0-36.0); MEAN CORPUSCULAR VOLUME 93 fL (82-100); MONOCYTES # (AUTO) 0.4 /CMM (0.1-1.30); NEUTROPHILS % (AUTO) 55.4 % (43.0-81.0); PLATELET COUNT (AUTO) 149 /CMM (150-450); RED BLOOD CELL COUNT(AUTO) 2.68 MIL/uL (4.0-5.2); WHITE BLOOD COUNT (AUTO) 3.7 K/uL (4.3-11.0)
--- NOTE | 2019-08-10 07:25 | NUR ---
RN AM SHIFT NOTE PATIENT AWAKE BUT NON VERBAL. V PACING ON MONITOR. GTUBE PATENT AND FLUSHING. LAST FEEDING HUNG AT BEDSIDE PER FAMILY REQUEST APPROVED BY MD. RN WILL CALL DAUGHTER TO INFORM HER THE FEEDING AND WATER THAT SHE BRINGS IS OUT AND NEEDS REPLACMENT. IF NO RESPONSE RN WILL CONTACT MD FOR NEW ORDERS REGARDING FEEDING. NO INJECTIONS FOR INSULIN OTHER THAN STOMACH PER DAUGHTER REQUEST, NO BLOOD PRESSURE OR VENIPUNCURE ON UPPER EXTREMETIES PER DAUGHTERS REQUEST. SIGNS AT BEDSIDE. CLEAN EQUPTMENT AT BEDSIDE AND REPLACED EXCESSSIVELY PER DAUGHTER REQUEST, EXTREMELY WASTEFUL AND DEMANDING DAUGHTER. POSSIBLY INABILITY TO ACCEPT SITUATION WITH MOTHER. PLAN IS TO FIND SUBACUTE PLACMENT, AWAITING INFORMTION FROM CASE MANAGMENT. CBC AND BMP TO BE DONE TODAY. WOUND CHANGES WERE DONE LAST NIGHT, RN WILL DO TODAY NEEDED. RESPIRATORY DID ROUNDS ALL BREATHING ASSESSMENT WNL NO DISTRESS NOTED. SUCTIONED WELL. RN CONTINUE TO MONITOR. BED IN LOW POSITION, SIDE RAILS UP , PILLOWS UNDER BOTH ARMS OFFLOAD HEELS. HOB UP AT 45 DEGREES TO PREVENT ASPIRATION.
[2019-08-10 07:59] LABS: CALCIUM, SERUM 8.1 mg/dL (8.5-10.1); CARBON DIOXIDE 23 mmol/L (21-32); CHLORIDE 101 mmol/L (98-107); CREATININE 0.3 mg/dL (0.6-1.3); GLUCOSE 131 mg/dL (74-106); POTASSIUM 4.5 mmol/L (3.5-5.1); SODIUM SERUM 132 mmol/L (136-145); UREA NITROGEN, BLOOD 14 mg/dL (7-18)
[2019-08-10] MEDS: ASPIRIN 81 MG TAB.CHEW GT SCH (08:23)
[2019-08-10] MEDS: MULTIVITAMINS,THERAGRAN 1 UDTAB TABLET GT SCH (08:23)
[2019-08-10] MEDS: LEVETIRACETAM (250 MG) 250 MG TABLET PO SCH ×2 (08:23→20:32)
[2019-08-10] MEDS: CARNITINE 500 MG GT SCH ×2 (08:23→17:48)
[2019-08-10] MEDS: THERAHONEY GEL 1.5 OZ TUBE TP SCH (08:24)
[2019-08-10] MEDS: COLOSTRUM PO SCH (08:25)
[2019-08-10] MEDS: Z GUARD REMEDY 2 OZ OINT TP SCH (08:25)
[2019-08-10] MEDS: CLOTRIMAZOLE 1% 15 GM TUBE TP SCH ×2 (08:26→17:49)
[2019-08-10] MEDS: MEDIHONEY TP SCH (08:26)
[2019-08-10] MEDS: COQ10 GT SCH ×2 (08:27→17:00)
--- NOTE | 2019-08-10 10:46 | NUR ---
LOVENOX NIGHT RN REPORT TO DAY NURSE SHE DID NOT ADMINISTER LOVENOX UNTIL 2AM. RN CALLED PHARMACY TODAY TO CONFIRMM LATE ADMINISTRAION AT 12PM 08/10 FOR SAFETY.
[2019-08-10] MEDS ORDERED: ENOXAPARIN SODIUM 60 MG/0.6 ML DISP.SYRIN SQ SCH (12:00)
--- NOTE | 2019-08-10 14:00 | NUR ---
RN NOTE PATIENT FAMILY DIFFICUKT, FIGHTING WITH STAFF INCLUDING MD ABOUT MEDICATION THAT IS NOT APPLICABLE SUCH CIPRO FOR ATB TREATMENT. RN DID BEST TO EXPLAIN TO FAMILY ABOUT CULUTRE AND SENSITIVIVITY. MD AWARE. RN ASSIGNMENT CHANGED , FAMILY IS AGGRESSIVE AND MANIPULATIVE ALL STAFF INCLUING AND CHARGE NURSE JAENS.
--- NOTE | 2019-08-10 14:00 | NUR ---
MULTIMEDIA DESIGNER NOTES RECEIVED PT FROM CHALINO PACK LYING ON BED.CAN OPEN THE EYES,FAMILY IS AT BEDSIDE.ON TRACH AND VENT DEPEND WITH PORTEX #8,AC 14 TV 450 FIO2 30% PEEP 5,TOLERATING WELL.NO SOB AND ACUTE DISTRESS NOTED.RIGHT UPPER ARM MIDLINE PRESENT WITH IV NS@50MLS/HR IS RUNNING.G TUBE IS IN PLACE WITH G TUBE FEEDING IS RUNNING WITH HOME MADE FORMULA.SITE IS CLEAN,DRY AND INTACT.NO INFILTRATION NOTED.SAFETY IS MAINTAINED AT ALL TIMES,CALL LIGHT IS WITHIN REACH.WILL CONTINUE TO MONITOR THE THE PT CLOSELY.
--- NOTE | 2019-08-10 18:51 | NUR ---
INDIRECT SALES EXEC CLOSING NOTES PT IS LYING ON BED,AWAKE AND OPEN EYES.FAMILY IS AT BEDSIDE.RESPIRATION IS EVEN AND NONLABORED,NO SIGNIFICANT CHANGES NOTED IN THE SHIFT.WILL ENDORSE TO PUBLISHING SPECIALIST RN FOR ABELINO.
--- NOTE | 2019-08-10 19:15 | NUR ---
CLERICAL AIDE TEACHER NOTES RECEIVED PT IN BED. PT CAN OPEN EYES. RESPIRATIONS EVEN AND UNLABORED WITH NO S/S OF ACUTE DISTRESS OR SOB NOTED. PT ON TRACH AND VENT WITH PORTEX #8,AC 14 TV 450 FIO2 30% PEEP 5,TOLERATING WELL. PT WITH RIGHT UPPER ARM MIDLINE PRESENT WITH IV NS@50MLS/HR IS RUNNING. PT WITH G-TUBE IS IN PLACE WITH G TUBE FEEDING IS RUNNING WITH HOME FORMULA. NO S/S OF PAIN AT THIS TIME. SAFETY MEASURES IN PLACE WITH BED IN LOWEST LOCKED POSITION WITH SIDE RAILS UP X2. CALL LIGHT WITHIN REACH. WILL CONTINUE TO MONITOR.
[2019-08-11] VITALS (13 sets, daily range): BP systolic 101–170; BP diastolic 44–72
[2019-08-11] MEDS: BLOOD SUGAR DIAGNOSTIC 1 EACH STRIP IN SCH ×4 (00:20→17:11)
[2019-08-11] MEDS: ENOXAPARIN SODIUM 60 MG/0.6 ML DISP.SYRIN SQ SCH ×2 (00:26→11:38)
[2019-08-11] MEDS: [UNRECOGNIZED DRUG - OTHER] GT PRN ×3 (05:19→16:19)
[2019-08-11] MEDS: INSULIN REGULAR, HUMAN 100 UNIT/ML 3 ML VIAL SQ PRN ×3 (07:00→17:08)
--- NOTE | 2019-08-11 07:34 | NUR ---
NON FOOD RECEIVING CLERK NOTES PT IN BED RESTING. PT CAN OPEN EYES. RESPIRATIONS EVEN AND UNLABORED WITH NO S/S OF ACUTE DISTRESS OR SOB NOTED THROUGHOUT SHIFT. PT ON TRACH AND VENT WITH PORTEX #8,AC 14 TV 450 FIO2 30% PEEP 5,TOLERATING WELL. PT WITH RIGHT UPPER ARM MIDLINE PRESENT WITH IV NS@50MLS/HR IS RUNNING. PT WITH G-TUBE IS IN PLACE WITH G TUBE FEEDING IS RUNNING WITH HOME FORMULA. NO S/S OF PAIN AT THIS TIME. PT KEPT CLEAN, DRY, AND COMFORTABLE. PT TURNED Q2 HOURS THROUGHOUT SHIFT. SAFETY MEASURES IN PLACE WITH BED IN LOWEST LOCKED POSITION WITH SIDE RAILS UP X2. CALL LIGHT WITHIN REACH. WILL ENDORSE TO ONCOMING NURSE FOR ABELINO.
--- NOTE | 2019-08-11 07:56 | NUR ---
RN OPENING NOTES Patient received on a ventilator, no sob noted, saturating well with no s/s of pain at this time. G tube feeding regimen remains running at this time. [place] midline NS @ 50 ml per hour. Patient comfortable in her bed. Bed at the lowest setting, call light within reach, side rails up x2.
[2019-08-11] MEDS: MULTIVITAMINS,THERAGRAN 1 UDTAB TABLET GT SCH (08:24)
[2019-08-11] MEDS: LEVETIRACETAM (250 MG) 250 MG TABLET PO SCH ×2 (08:24→20:24)
[2019-08-11] MEDS: ASPIRIN 81 MG TAB.CHEW GT SCH (08:24)
[2019-08-11] MEDS: THERAHONEY GEL 1.5 OZ TUBE TP SCH (08:25)
[2019-08-11] MEDS: MEDIHONEY TP SCH (08:25)
[2019-08-11] MEDS: CARNITINE 500 MG GT SCH ×2 (08:25→16:55)
[2019-08-11] MEDS: Z GUARD REMEDY 2 OZ OINT TP SCH (08:26)
[2019-08-11] MEDS: CLOTRIMAZOLE 1% 15 GM TUBE TP SCH ×2 (08:26→17:00)
[2019-08-11] MEDS: COLOSTRUM PO SCH (08:37)
[2019-08-11] MEDS: COQ10 GT SCH ×2 (08:40→17:00)
[2019-08-11] MEDS: IV NS 0.9% 1,000 ML IV PRN (17:17)
--- NOTE | 2019-08-11 18:32 | NUR ---
RN CLOSING NOTES Patient remains on ventilator at this time, no sob noted, no s/s of pain at this time. R UA midline with NS @ 50 ml per hour. GT feeding remains at 85 ml per hour at this time. Bed at the lowest setting, call light within reach, side rails up x2. Will give report to NOC RN for bedside report.
--- NOTE | 2019-08-11 19:31 | NUR ---
tele/rn opening notes RECEIVED PATIENT IN BED HOB ELEVATED, ON MECHANICAL VENT WITH PRESCRIBED SETTING, NON VERBAL ASLEEP, RESPIRATIONS EVEN AND UNLABORED, SKIN WARM TO TOUCH, PATIENT ON GTUBE FEEDING RUNNING AT 85 ML PER HOUR, WITH ZERO RESIDUAL, PATENT, PATIENT REQUIRE TURNING AND REPOSITION WITH WOUNDS ON SACRAL AREA AND LOWER LEGS AND HEEL. TO MONITOR, TELE READING VPACING, WILL MONITOR FGOR ANY CHANGESM AND SUCTION NEEDED.
--- NOTE | 2019-08-11 20:05 | NUR ---
TELE/RN NOTES PATIENT MIDLINE ON [place]LOTTE PATENT, IV FLUID RUNNING AT 50 ML/HR ON NS.
[2019-08-12] VITALS (7 sets, daily range): BP systolic 100–174; BP diastolic 40–62
--- NOTE | 2019-08-12 00:15 | NUR ---
TELE/RN NOTES BLOOD SUGAR CHECK AT 85. MONITORING FOR ANY CHANGES,
[2019-08-12] MEDS: ENOXAPARIN SODIUM 60 MG/0.6 ML DISP.SYRIN SQ SCH ×2 (00:19→11:36)
[2019-08-12] MEDS: BLOOD SUGAR DIAGNOSTIC 1 EACH STRIP IN SCH ×4 (00:25→18:23)
--- NOTE | 2019-08-12 03:38 | NUR ---
Pt rec'd trached on [facility] vent on CPAP mode. No resp distress or SOB noted. Trach is patent and secured. Sx'd for thick small amt of yellow secretions. alarms are set and audible. Vent plugged into red outlet. Ambu bag bedside. Will continue tominitor closely. Addendum: 08/12/19 at 0338 by DILAN TUTTLE RT Amended: Links added.
[2019-08-12] MEDS: INSULIN REGULAR, HUMAN 100 UNIT/ML 3 ML VIAL SQ PRN ×3 (05:18→18:24)
--- NOTE | 2019-08-12 06:30 | NUR ---
TELE/RN NOTES PATIETN IN BED, HOB ELEVATED ON TELE MONITORING VPACING, OPENS EYED,SKIN WARM TO TOUCH. ON IV FLUIDS WITH 50ML/HR, ON GTUBE WITH FEEDING PER FAMILY MEMBER TO BE USED AT 85 ML/HR. BED BOUND AND ON MECHANICAL VENT. WILL MONITOR. WILL ENDORSE TO AM RN FOR ABELINO.
--- NOTE | 2019-08-12 07:24 | NUR ---
RN OPENING NOTES RECEIVED PATIENT RESTING IN BED COMFORTABLY AT THIS TIME. SHE IS OBTUNDED, NON-VERBAL, OPENS EYES AND MOUTH, AND IS ON BEDREST. SHE HAS PORTEX 8 TRACH AND IS ON MECHANICAL VENT, TOLERATING SETTINGS WELL, SHOWS NO S/SX OF RESP DISTRESS OR SOB. TELE MONITOR SHOWING SR WITH V PACING. PT HAS MULTIPLE WOUNDS, WILL ADDRESS ACCORDING TO WOUND PLAN. PT IS ON TUBE FEEDING, TOLERATING WELL, NO RESIDUAL NOTED. CHARLOTTE MIDLINE IS INTACT AND INFUSING D5 NS. WE ARE CURRENTLY LOOKING FOR PLACEMENT FOR HER DC. SAFETY MEASURES HAVE BEEN IMPLEMENTED, CALL LIGHT IS WITHIN REACH, BED IS IN LOWEST AND LOCKED POSITION, SIDE RAILS UP X2, WILL CONTINUE TO MONITOR FOR ANY CHANGES.
[2019-08-12] MEDS: [UNRECOGNIZED DRUG - OTHER] GT PRN ×2 (07:57→22:53)
[2019-08-12] MEDS: ASPIRIN 81 MG TAB.CHEW GT SCH (08:41)
[2019-08-12] MEDS: COLOSTRUM PO SCH (08:41)
[2019-08-12] MEDS: LEVETIRACETAM (250 MG) 250 MG TABLET PO SCH ×2 (08:41→21:15)
[2019-08-12] MEDS: MULTIVITAMINS,THERAGRAN 1 UDTAB TABLET GT SCH (08:41)
[2019-08-12] MEDS: CARNITINE 500 MG GT SCH ×2 (08:41→16:32)
[2019-08-12] MEDS: COQ10 GT SCH ×2 (08:42→16:32)
[2019-08-12] MEDS: CLOTRIMAZOLE 1% 15 GM TUBE TP SCH ×2 (08:43→16:32)
[2019-08-12] MEDS: MEDIHONEY TP SCH (08:43)
[2019-08-12] MEDS: THERAHONEY GEL 1.5 OZ TUBE TP SCH (08:43)
[2019-08-12] MEDS: Z GUARD REMEDY 2 OZ OINT TP SCH (08:44)
--- NOTE | 2019-08-12 10:50 | NUR ---
RT NOTE, MONTHLY TRACH CHANGED PER DR. CAMPOS ORDER X2 RT AT THE BEDSIDE. PT. NOEL WELL AND NO COMPLICATIONS. PT. STABLE. RN NOTIFIED
[2019-08-12] MEDS: IV NS 0.9% 1,000 ML IV PRN (12:20)
[2019-08-12] MEDS ORDERED: hydrALAZINE HCL IV 20 MG VIAL IV ONE (16:00)
--- NOTE | 2019-08-12 16:15 | NUR ---
RN NOTES PATIENT'S BP HAS BEEN HIGH THROUGHOUT THE DAY, MOST RECENTLY BEING 179/62. RECEIVED ONE TIME ORDER OF HYDRALAZINE FROM DR. JOHNSON. DID NOT ADMIN BECAUSE WHEN RECHECKED PRIOR TO ADMIN THE BP LOWERED TO 144/58. PER DAUGHTER'S REQUEST, HYDRALAZINE WAS HELD. WILL CONTINUE TO MONITOR FOR ANY CHANGES.
--- NOTE | 2019-08-12 19:06 | NUR ---
RN CLOSING NOTES PATIENT IS RESTING IN BED COMFORTABLY WITH DAUGHTER AT BEDSIDE. SHE SHOWS NO S/SX OF RESP DISTRESS OR SOB. TOLERATING VENT SETTINGS WELL. AWAITING PLACEMENT TO SNF. NO ACUTE CHANGES OCCURRED THROUGHOUT THE SHIFT, VITAL SIGNS ARE STABLE, PT NEEDS HAVE BEEN MET. SAFETY MEASURES HAVE BEEN IMPLEMENTED, CALL LIGHT IS WITHIN REACH, BED IS IN LOWEST AND LOCKED POSITION, SIDE RIALS UP X2, WILL ENDORSE TO NIGHTSHIFT RN FOR CONTINUITY OF CARE.
--- NOTE | 2019-08-12 19:15 | NUR ---
TELE/RN NOTES RECEIVED PT. LYING IN BED. PT. IS VENT/TRACH DEPENDENT, NON-VERBAL, OPENS EYES. PT. IS BREATHING EVEN AND UNLABORED. NO SOB, RESPIRATORY DISTRESS OR S/S OF PAIN NOTED AT THIS TIME. PT. WITH EXTERNAL COMPUTER PROGRAMMER PRESENT AND INTACT. CURRENT RHYTHM = V-PACING HR 60. PT. WITH RIGHT UPPER ARM MIDLINE PRESENT, PATENT AND INTACT ADMINISTERING TO PT. NS @ 50ML/HR. PT. WITH G-TUBE PRESENT, PATENT AND INTACT ADMINISTERING TO PT. TUBE FEEDING @ 85 ML/HR. PT. DAUGHTER PRESENT AT BEDSIDE. BED LOCKED AND IN LOWEST POSITION, SIDE RAILS UP X3, BED ALARM ON, CALL LIGHT WITHIN REACH, WILL CONTINUE TO MONITOR.
--- NOTE | 2019-08-12 20:18 | NUR ---
pt received on vent via trach portex 8 secure via trach tie, nonverbal. no sob noted at this time Addendum: 08/12/19 at 2019 by JC ELMORE RT Amended: Links added.
[2019-08-13] VITALS: BP 133/62
[2019-08-13] MEDS: BLOOD SUGAR DIAGNOSTIC 1 EACH STRIP IN SCH ×5 (00:05→23:11)
[2019-08-13] MEDS: INSULIN REGULAR, HUMAN 100 UNIT/ML 3 ML VIAL SQ PRN ×4 (00:10→23:13)
[2019-08-13] MEDS: ENOXAPARIN SODIUM 60 MG/0.6 ML DISP.SYRIN SQ SCH ×3 (00:11→23:17)
[2019-08-13 04:00] VITALS: BP 121/52
[2019-08-13 06:31] LABS: CALCIUM, SERUM 8.2 mg/dL (8.5-10.1); CARBON DIOXIDE 24 mmol/L (21-32); CHLORIDE 100 mmol/L (98-107); CREATININE 0.4 mg/dL (0.6-1.3); GLUCOSE 171 mg/dL (74-106); POTASSIUM 4.4 mmol/L (3.5-5.1); SODIUM SERUM 131 mmol/L (136-145); UREA NITROGEN, BLOOD 11 mg/dL (7-18)
--- NOTE | 2019-08-13 06:32 | NUR ---
TELE/RN NOTES PT. IS LYING IN BED RESTING. PT. IS VENT/TRACH DEPENDENT, NON-VERBAL, OPENS EYES. PT. IS BREATHING EVEN AND UNLABORED. NO SOB, RESPIRATORY DISTRESS OR S/S OF PAIN NOTED AT THIS TIME AND THROUGHOUT SHIFT. PT. WITH EXTERNAL HOUSEHOLD CHORES PRESENT AND INTACT. CURRENT RHYTHM = V-PACING HR 60. PT. WITH RIGHT UPPER ARM MIDLINE PRESENT, PATENT AND INTACT ADMINISTERING TO PT. NS @ 50ML/HR. PT. WITH G-TUBE PRESENT, PATENT AND INTACT ADMINISTERING TO PT. TUBE FEEDING @ 85 ML/HR. PT. TOLERATING TUBE FEEDING WELL. NO RESIDUAL NOTED AT THIS TIME. ALL PT. NEEDS MET. PT. OFFLOADED, TURNED AND REPOSITIONED Q2H AND NEEDED. BED LOCKED AND IN LOWEST POSITION, SIDE RAILS UP X3, BED ALARM ON, CALL LIGHT WITHIN REACH, WILL ENDORSE TO DAYSVAFT NURSE FOR CONTINUITY OF CARE.
[2019-08-13 06:54] LABS: EOSINOPHILS % (AUTO) 5.2 % (0.0-6.0); HEMATOCRIT 26 % (33-45); HEMOGLOBIN 8.6 g/dL (11.5-14.8); LYMPHOCYTES % (AUTO) 25.4 % (20.0-44.0); MEAN CORPUSCULAR HGB CONC 34 g/dl (31.0-36.0); MEAN CORPUSCULAR VOLUME 92 fL (82-100); MONOCYTES # (AUTO) 0.3 /CMM (0.1-1.30); MONOCYTES % (AUTO) 8.5 % (2.0-12.0); NEUTROPHILS # (AUTO) 2.4 /CMM (1.8-8.9); NEUTROPHILS % (AUTO) 59.9 % (43.0-81.0); PLATELET COUNT (AUTO) 178 /CMM (150-450); RED BLOOD CELL COUNT(AUTO) 2.77 MIL/uL (4.0-5.2)
--- NOTE | 2019-08-13 07:00 | NUR ---
RN OPENING PATIENT REMAINS NONVERBAL, ABLE TO TRACK, AWAKE, RESPONDS TO TACTILE STIMULI. PUPILS REACTIVE. ATTACHED TO [facility] VENT, TOLERATES SETTINGS ORDERED, NO RESPIRATORY DISTRESS NOTED, CHEST RISE EVEN AND UNLABORED, PULSE OX ALARM ATTACHED AND AUDIBLE, SPO2 100%. TELE MONITOR ATTACHED, V PACING, HR 60. EMERGENCY EQUIPMENT + SUCTION AT BEDSIDE. GTF RUNNING HOME FORMULA @85mL/HR PER FAMILY REQUEST, NO RESIDUAL NOTED, PLACEMENT VERIFIED VIA AUSCULTATION+ASPIRATION. RIGHT FOREARM MIDLINE REMAINS CLEAN, DRY, INTACT, PATENT. HOB ELEVATED AT ALL TIMES FOR ASPIRATION PRECAUTION. SEIZURE PRECAUTIONS IN PLACE. BED LOCKED, LOW, SIDE RAILS UPx2, CALL LIGHT WITHIN REACH
[2019-08-13 08:00] VITALS: BP 147/67
[2019-08-13] MEDS: MULTIVITAMINS,THERAGRAN 1 UDTAB TABLET GT SCH (08:04)
[2019-08-13] MEDS: ASPIRIN 81 MG TAB.CHEW GT SCH (08:04)
[2019-08-13] MEDS: LEVETIRACETAM (250 MG) 250 MG TABLET PO SCH ×2 (08:04→21:12)
[2019-08-13] MEDS: IV NS 0.9% 1,000 ML IV PRN (08:04)
[2019-08-13] MEDS: CARNITINE 500 MG GT SCH ×2 (08:04→17:01)
[2019-08-13] MEDS: COQ10 GT SCH ×2 (08:05→17:01)
[2019-08-13] MEDS: COLOSTRUM PO SCH (08:06)
[2019-08-13] MEDS: MEDIHONEY TP SCH (08:06)
[2019-08-13] MEDS: CLOTRIMAZOLE 1% 15 GM TUBE TP SCH ×2 (08:06→17:00)
[2019-08-13] MEDS: Z GUARD REMEDY 2 OZ OINT TP SCH (08:07)
[2019-08-13] MEDS: THERAHONEY GEL 1.5 OZ TUBE TP SCH (08:07)
[2019-08-13 12:00] VITALS: BP 138/52
--- NOTE | 2019-08-13 13:00 | NUR ---
DAUGHTER CLEMENT CALLED 3X WANTED NURSE CHANGE ,SINCE STRAIGHTEDGE WORKER TOLD HER THAT SHE WAS ASKED TO STEP OUT OF ROOM WHILE AFIA ,RN CLEANING PATIENT AND PER DAUGHTER "NURSE DROPPING THE BALL", REASSURED WILL FOLLOW UP AND ASSESSED SITUATION.EXPLAINED THAT WILL TRY TO CHANGE NURSE AROUND 3PM SINCE EACH NURSES HAVE THEIR OWN SET OF PATIENTS AND WILL DISRUPT NURSING CARE.DAUGHTER ALSO REASSURED PATIENT STABLE NOT IN ACUTE DISTRESS AND CHARGE NURSE IS FF UP PATIENT CARE.
--- NOTE | 2019-08-13 14:59 | NUR ---
REPORT GIVEN TO EMMIE ALLRED FOR ABELINO Addendum: 08/13/19 at 1502 by RIA BAUTISTA RN FAMILY FRIEND GUERO AT BEDSIDE. NO CHANGES NOTED.
--- NOTE | 2019-08-13 15:00 | NUR ---
RECEIVED REPORT FROM RIA ALLRED FOR ABELINO
[2019-08-13 16:00] VITALS: BP 128/62
--- NOTE | 2019-08-13 18:30 | NUR ---
INVOICE CHECKER CLOSING NOTE PATIENT AWAKE, NONVERBAL, RESPONDS TO TACTILE STIMULI, ON MECH VENT, TOLERATING SETTINGS WELLS, NO RESPIRATORY DISTRESS NOTED, PULSE OX ALARM ATTACHED AND AUDIBLE, SPO2 100%. TELE MONITOR ATTACHED, V PACING, HR 60. GTF RUNNING HOME FORMULA @85mL/HR PER FAMILY REQUEST, 30CC RESIDUAL NOTED, PLACEMENT VERIFIED VIA AUSCULTATION+ASPIRATION, TOLERATING FEEDING WELL. RIGHT FOREARM MIDLINE REMAINS CLEAN, DRY, INTACT, PATENT. NS INFUSING AT 50CC/HR. HOB ELEVATED AT ALL TIMES FOR ASPIRATION PRECAUTION. BED IN LOW POSITION, LOCKED, CALL LIGHT WITHIN REACH. PROVIDED SAFETY AND COMFORT THROUGHOUT SHIFT, ALL DUE MEDS GIVEN. WILL ENDORSE TO [facility] SHIFT NURSE.
--- NOTE | 2019-08-13 19:25 | NUR ---
ACCOUNTING SOFTWARE SPECIALIST NOTES, PATIENT IN BED, ASLEEP AT THIS TIME, ON MECHANICAL VENTILATOR TOLERATING VENT SETTINGS WELL, NO SOB/ACUTE DISTRESS NOTED, WITH 100% O2 AT THIS TIME, NO FACIAL GRIMACING NOTED, PAIN OR S/S OF DISCOMFORT, ON TELE MONITOR IS V-PACING HR 60S AT THIS TIME, CHARLOTTE MIDLINE PATENT AND INTACT, WITH NS 0.9% INFUSING AT 50ML/HR WELL AND PATIENT TOLERATED WELL, G-TUBE FEEDING INFUSING AT 85 ML/HR NO RESIDUAL NOTED AT THIS TIME, , CAREGIVER AT BEDSIDE, HOB ELEVATED FOR ASPIRATION PRECAUTIONS, ON SEIZURE PRECAUTIONS WELL, DRY AND CLEAN, NO SEIZURE ACTIVITY NOTED AT THIS TIME, BED IS LOCKED AND IN LOWEST POSITION, WILL CONTINUE TO MONITOR CLOSELY
[2019-08-13 20:00] VITALS: BP 140/52
--- NOTE | 2019-08-13 20:08 | NUR ---
RT NOTE PT RECEIVED TRACHED ON MECHANICAL VENTILATION. AMBU BAG/BACK UP TRACH @ BEDSIDE. TX GIVEN, NO ADVERSE REACTIONS NOTED. SX DONE, TRACH SECURED AND PATENT. ALARMS ON AND AUDIBLE. VENT PLUGGED TO RED OUTLET. CONT. PULSE OX CONNECTED. WILL MONITOR. Addendum: 08/13/19 at 2014 by ZAMZAM QUIROGA RT Amended: Links added.
[2019-08-14] VITALS: BP 150/63
[2019-08-14 04:00] VITALS: BP 148/65
[2019-08-14] MEDS: IV NS 0.9% 1,000 ML IV PRN ×2 (04:24→22:44)
[2019-08-14] MEDS: BLOOD SUGAR DIAGNOSTIC 1 EACH STRIP IN SCH ×4 (05:54→23:42)
[2019-08-14] MEDS: INSULIN REGULAR, HUMAN 100 UNIT/ML 3 ML VIAL SQ PRN ×4 (05:55→23:43)
[2019-08-14 06:36] LABS: BASOPHILS % (AUTO) 0.9 % (0.0-2.0); EOSINOPHILS % (AUTO) 5.9 % (0.0-6.0); HEMATOCRIT 27 % (33-45); LYMPHOCYTES % (AUTO) 27.3 % (20.0-44.0); MEAN CORPUSCULAR HGB CONC 33 g/dl (31.0-36.0); MEAN CORPUSCULAR VOLUME 92 fL (82-100); MONOCYTES # (AUTO) 0.3 /CMM (0.1-1.30); MONOCYTES % (AUTO) 8.7 % (2.0-12.0); NEUTROPHILS # (AUTO) 2.1 /CMM (1.8-8.9); NEUTROPHILS % (AUTO) 57.2 % (43.0-81.0); PLATELET COUNT (AUTO) 211 /CMM (150-450); RED BLOOD CELL COUNT(AUTO) 2.93 MIL/uL (4.0-5.2); WHITE BLOOD COUNT (AUTO) 3.7 K/uL (4.3-11.0)
--- NOTE | 2019-08-14 06:39 | NUR ---
TELE NOTES, PATIENT IN BED, WITH EYES CLOSED, RESPOND TO VERBAL STIMULI, NO FACIAL GRIMACING NOTED, NO PAIN OR S/S OF DISCOMFORT NOTED, ON MECHANICAL VENTILATOR TOLERATING VENT SETTINGS WELL, NO SOB/ACUTE DISTRESS NOTED, ON SEIZURE PRECAUTIONS WELL, NO SEIZURE ACTIVITY NOTED DURING THE NIGHT, AN HOB ELEVATED FOR ASPIRATION PRECAUTIONS, ALL NEEDS PROVIDED, DRY AND CLEAN, NO SIGNIFICANT CHANGE IN CONDITION DURING THE NIGHT, BED LOCKED AND IN LOWEST POSITION, CALL LIGHT W/I REACH, WILL ENDORSE CONTINUITY OF CARE TO ONCOMING NURSE.
[2019-08-14 07:04] LABS: CALCIUM, SERUM 8.2 mg/dL (8.5-10.1); CARBON DIOXIDE 24 mmol/L (21-32); CHLORIDE 101 mmol/L (98-107); CREATININE 0.3 mg/dL (0.6-1.3); GLUCOSE 137 mg/dL (74-106); MAGNESIUM 1.8 mg/dL (1.8-2.4); PHOSPHORUS 3.8 mg/dL (2.5-4.9); POTASSIUM 4.5 mmol/L (3.5-5.1); SODIUM SERUM 132 mmol/L (136-145); UREA NITROGEN, BLOOD 12 mg/dL (7-18)
--- NOTE | 2019-08-14 07:15 | NUR ---
RN OPENING NOTES RECEIVED PATIENT RESTING COMFORTABLY IN BED. SHE IS AWAKE, NON-VERBAL, TRACES WITH EYES, AND BED BOUND. SHE HAS A PORTEX 8 TRACH CONNECTED TO MECHANICAL VENT, TOLERATING SETTINGS WELL, SHOWS NO S/SX OF RESP DISTRESS OR SOB. TELE MONITOR SHOWING V-PAVING AT 60 BPM. SHE HAS BLEs AND R HAND EDEMA. PT IS RECEIVING HOME TUBE FEEDING AT 85 ML/HR, TOLERATING WELL, NO RESIDUAL NOTED. MULTIPLE SKIN ISSUES THROUGHOUT THE BODY, WILL ADDRESS ACCORDING TO WOUND CARE PLAN. CHARLOTTE MIDLINE IS INTACT AND INFUSING D5 1/2 NS AT 50 ML/HR. POC: AWAITING FOR SNF PLACEMENT. SAFETY MEASURES HAVE BEEN IMPLEMENTED, CALL LIGHT IS WITHIN REACH, BED IS IN LOWEST AND LOCKED POSITION, SIDE RAILS UP X2, WILL CONTINUE TO MONITOR FOR ANY CHANGES.
[2019-08-14 08:00] VITALS: BP 163/64
[2019-08-14] MEDS: THERAHONEY GEL 1.5 OZ TUBE TP SCH (08:28)
[2019-08-14] MEDS: MULTIVITAMINS,THERAGRAN 1 UDTAB TABLET GT SCH (08:28)
[2019-08-14] MEDS: CARNITINE 500 MG GT SCH ×2 (08:28→17:24)
[2019-08-14] MEDS: COLOSTRUM PO SCH (08:28)
[2019-08-14] MEDS: Z GUARD REMEDY 2 OZ OINT TP SCH (08:28)
[2019-08-14] MEDS: ASPIRIN 81 MG TAB.CHEW GT SCH (08:29)
[2019-08-14] MEDS: LEVETIRACETAM (250 MG) 250 MG TABLET PO SCH ×2 (08:29→21:27)
[2019-08-14] MEDS: MEDIHONEY TP SCH (08:29)
[2019-08-14] MEDS: COQ10 GT SCH ×2 (08:29→17:24)
[2019-08-14] MEDS: CLOTRIMAZOLE 1% 15 GM TUBE TP SCH ×2 (08:29→17:20)
[2019-08-14 12:00] VITALS: BP 159/67
[2019-08-14] MEDS: ENOXAPARIN SODIUM 60 MG/0.6 ML DISP.SYRIN SQ SCH ×2 (12:15→23:49)
[2019-08-14 16:00] VITALS: BP 147/67
--- NOTE | 2019-08-14 19:35 | NUR ---
EXPERIENCE DESIGNER NOTES, PATIENT IN BED, AWAKE AT THIS TIME, NO FACIAL GRIMACING OR DISCOMFORT NOTED, ON MECHANICAL VENTILATOR TOLERATING VENT SETTINGS WELL, NO SOB/ACUTE DISTRESS NOTED, WITH 100% O2 AT THIS TIME, ON TELE MONITOR IS V-PACING HR 60S AT THIS TIME, CHARLOTTE MIDLINE PATENT AND INTACT, WITH NS 0.9% INFUSING AT 50ML/HR WELL AND PATIENT TOLERATED WELL, G-TUBE FEEDING INFUSING AT 85 ML/HR, MINIMAL RESIDUAL NOTED, HOB ELEVATED FOR ASPIRATION PRECAUTIONS, ON SEIZURE PRECAUTIONS WELL, DRY AND CLEAN AND REPOSITIONED AT THIS TIME, BED IS LOCKED AND IN LOWEST POSITION, DAUGHTER AT BEDSIDE, WILL CONTINUE TO MONITOR CLOSELY
--- NOTE | 2019-08-14 19:41 | NUR ---
RN CLOSING NOTES PATIENT IS RESTING COMFORTABLY IN BED AT THIS TIME WITH DAUGHTER AT BEDSIDE. SHE SHOWS NO S/SX OF RESP DISTRESS OR SOB. SHE IS TOLERATING VENT SETTING WELL. PT NEEDS HAVE BEEN MET, VITAL SIGNS ARE STABLE, NO ACUTE CHANGES OCCURRED THROUGHOUT THE SHIFT. SAFETY MEASURES HAVE BEEN IMPLEMENTED, CALL LIGHT IS WITHIN REACH, BED IS IN LOWEST AND LOCKED POSITION, SIDE RAILS UP X2, PATIENT HAS BEEN ENDORSED TO NIGHTSHIFT RN FOR CONTINUITY OF CARE.
[2019-08-14 20:00] VITALS: BP 139/46
--- NOTE | 2019-08-14 21:03 | NUR ---
PT RCVD CLAUDIA'D ON MECHANICAL VENT WITH CHARTED SETTINGS. SX DONE. PT TRACH IS PATENT AND SECURE. VENT ALARMS APPEAR TO BE FUNCTIONING PROPERLY. VENT PLUGGED INTO RED OUTLET. AMBU BAG AT BEDSIDE. NO SOB NOTED. Addendum: 08/14/19 at 2105 by DONITA HIGH RT Amended: Links added.
[2019-08-15] VITALS: BP 144/47
[2019-08-15 04:00] VITALS: BP 141/45
[2019-08-15] MEDS: BLOOD SUGAR DIAGNOSTIC 1 EACH STRIP IN SCH ×4 (06:06→23:16)
[2019-08-15] MEDS: INSULIN REGULAR, HUMAN 100 UNIT/ML 3 ML VIAL SQ PRN ×4 (06:08→23:18)
--- NOTE | 2019-08-15 06:51 | NUR ---
RN NOTES, NO SIGNIFICANT CHANGE IN CONDITION DURING THE NIGHT, WILL ENDORSE CONTINUITY OF CARE TO ONCOMING NURSE
--- NOTE | 2019-08-15 07:22 | NUR ---
RN OPENING NOTES RECEIVED PATIENT RESTING IN BED COMFORTABLY. SHE IS AOX1, OBTUNDED, TRACES WITH EYES, AND IS BEDBOUND. SHE HAS PORTEX 8 TRACH AND IS CONNECTED TO MECHANICAL VENT, TOLERATING SETTINGS WELL, NO S/SX OF RESP DISTRESS OR SOB. TELE MONITOR SHOWING V-PACING WITH HR IN THE 60's. SHE HAS BLE EDEMA. WOUNDS WILL BE ADDRESSED PER WOUND CARE PLAN. RFA MIDLINE IS PATENT AND INTACT, INFUSING NS AT 50 ML/HR. AWAITING FOR PLACEMENT. SAFETY MEASURES HAVE BEEN IMPLEMENTED, CALL LIGHT IS WITHIN REACH, BED IS IN LOWEST AND LOCKED POSITION, SIDE RAILS UP X2, WILL CONTINUE TO MONITOR FOR ANY CHANGES.
[2019-08-15 08:00] VITALS: BP 125/69
[2019-08-15] MEDS: CARNITINE 500 MG GT SCH ×2 (08:58→16:12)
[2019-08-15] MEDS: COLOSTRUM PO SCH (08:59)
[2019-08-15] MEDS: Z GUARD REMEDY 2 OZ OINT TP SCH (08:59)
[2019-08-15] MEDS: LEVETIRACETAM (250 MG) 250 MG TABLET PO SCH ×2 (08:59→20:27)
[2019-08-15] MEDS: MULTIVITAMINS,THERAGRAN 1 UDTAB TABLET GT SCH (08:59)
[2019-08-15] MEDS: CLOTRIMAZOLE 1% 15 GM TUBE TP SCH ×2 (08:59→16:13)
[2019-08-15] MEDS: MEDIHONEY TP SCH (08:59)
[2019-08-15] MEDS: COQ10 GT SCH ×2 (08:59→16:12)
[2019-08-15] MEDS: ASPIRIN 81 MG TAB.CHEW GT SCH (08:59)
[2019-08-15] MEDS: THERAHONEY GEL 1.5 OZ TUBE TP SCH (09:00)
[2019-08-15] MEDS: ENOXAPARIN SODIUM 60 MG/0.6 ML DISP.SYRIN SQ SCH ×2 (11:37→23:09)
[2019-08-15 12:00] VITALS: BP 132/45
--- NOTE | 2019-08-15 12:21 | NUR ---
RN NOTES PATIENT'S BLOOD GLUCOSE LEVEL IS 137, PER SLIDING SCALE SHE REQUIRES 2 UNITS OF REGULAR INSULIN. PATIENT'S DAUGHTER IS REFUSING THE INSULIN, STATING HER BLOOD GLUCOSE WILL DORP TO LOW. NO INSULIN WAS GIVEN, WILL MONITOR FOR ANY CHANGES.
[2019-08-15 16:00] VITALS: BP 146/52
--- NOTE | 2019-08-15 18:08 | NUR ---
SPOKE WITH DAUGHTER CLEMENT 3X INSISTING THAT HER CAregiver to stayovernight,explained policies regarding visiting hours up to 8 pm,daughter very upset and threatening to pavel charge nurse and hospital for discrimination,nursing concrete paving supervisor frank made aware of situation.
[2019-08-15] MEDS: [UNRECOGNIZED DRUG - OTHER] GT PRN (18:33)
--- NOTE | 2019-08-15 18:48 | NUR ---
RN CLOSING NOTES PATIENT IS RESTING COMFORTABLY IN BED AT THIS TIME. PT IS TOLERATING MECHANICAL VENT SETTINGS WELL, NO S/SX OF DISTRESS OR SOB. NO ACUTE CHANGES OCCURRED THROUGHOUT THE SHIFT, VITALS ARE STABLE, CHEST RISES AND FALLS EVENLY, PT NEEDS HAVE BEEN MET. SAFETY MEASURES HAVE BEEN IMPLEMENTED, CALL LIGHT IS WITHIN REACH, BED IS IN LOWEST AND LOCKED POSITION, SIDE RAILS UP X2, WILL ENDORSE TO NIGHTSHIFT RN FOR CONTINUITY OF CARE.
--- NOTE | 2019-08-15 19:10 | NUR ---
RN OPENING NOTES: PATIENT IS RESTING COMFORTABLY AT THIS TIME, TOLERATING VENT TRACH SETTINGS. NO RESPIRATORY DISTRESS. NO S/S OF PAIN. NO FACIAL GRIMACING. RIGHT FA MIDLINE INTACT, PATENT, AND FLUSHING WELL. TURNED AND REPOSITIONED PER PROTOCOL FOR SKIN MANAGEMENT. ON RING PACKER SHOWING V-PACING, HR 60. SAFETY PRECAUTIONS IMPLEMENTED. BED LOCKED AND IN LOWEST POSITION. BED ALARM ON FOR SAFETY. CALL LIGHT PLACED WITHIN REACH. WILL CONT. TO MONITOR.
[2019-08-15 20:00] VITALS: BP 127/47
--- NOTE | 2019-08-15 21:14 | NUR ---
RT NOTE PT RECEIVED TRACHED ON MECHANICAL VENTILATION. AMBU BAG/BACK UP TRACH @ BEDSIDE. SX DONE, TRACH SECURED AND PATENT. ALARMS ON AND AUDIBLE. NO SOB NOTED. CONT. PULSE OX CONNECTED. WILL CONTINUE TO MONITOR T/O SHIFT. Addendum: 08/15/19 at 2116 by ZAMZAM QUIROGA RT Amended: Links added.
--- NOTE | 2019-08-15 21:30 | NUR ---
GENERAL I FARMWORKER NOTES RECEIVED A CALL FROM [facility] TO BE DISCHARGED [facility] AT 830AM GOING TO [facility] TEL [phone].
[2019-08-16] VITALS: BP 132/46
[2019-08-16] MEDS: [UNRECOGNIZED DRUG - OTHER] GT PRN (01:32)
[2019-08-16 04:00] VITALS: BP 146/48
[2019-08-16] MEDS: BLOOD SUGAR DIAGNOSTIC 1 EACH STRIP IN SCH (05:43)
--- NOTE | 2019-08-16 06:25 | NUR ---
RN NOTE: CALLED DAUGHTER LUIS TO INFORM ABOUT DC TODAY AT 0837
[2019-08-16 06:47] LABS: EOSINOPHILS % (AUTO) 4.9 % (0.0-6.0); HEMATOCRIT 25 % (33-45); HEMOGLOBIN 8.5 g/dL (11.5-14.8); LYMPHOCYTES # (AUTO) 0.9 /CMM (0.8-4.8); LYMPHOCYTES % (AUTO) 26.5 % (20.0-44.0); MEAN CORPUSCULAR HGB CONC 34 g/dl (31.0-36.0); MEAN CORPUSCULAR VOLUME 92 fL (82-100); MONOCYTES # (AUTO) 0.3 /CMM (0.1-1.30); NEUTROPHILS % (AUTO) 57.6 % (43.0-81.0); PLATELET COUNT (AUTO) 226 /CMM (150-450); RED BLOOD CELL COUNT(AUTO) 2.75 MIL/uL (4.0-5.2); WHITE BLOOD COUNT (AUTO) 3.4 K/uL (4.3-11.0)
[2019-08-16 06:48] LABS: ALANINE AMINOTRANSFERASE 24 U/L (12-78); ALBUMIN 2.1 g/dL (3.4-5.0); ALKALINE PHOSPHATASE 409 U/L (46-116); ASPARTATE AMINOTRANSFERASE 22 U/L (15-37); BILIRUBIN,TOTAL 0.2 mg/dL (0.2-1.0); CALCIUM, SERUM 8.6 mg/dL (8.5-10.1); CARBON DIOXIDE 25 mmol/L (21-32); CHLORIDE 100 mmol/L (98-107); CREATININE 0.4 mg/dL (0.6-1.3); GLUCOSE 130 mg/dL (74-106); PHOSPHORUS 4.1 mg/dL (2.5-4.9); POTASSIUM 4.7 mmol/L (3.5-5.1); SODIUM SERUM 131 mmol/L (136-145); TOTAL PROTEIN, SERUM 6.8 g/dL (6.4-8.2); UREA NITROGEN, BLOOD 15 mg/dL (7-18)
--- NOTE | 2019-08-16 07:00 | NUR ---
RN INITIAL NOTE PATIENT IN BED, ASLEEP BUT EASILY AROUSABLE. NON-LABORED BREATHING. ON VENT, SATING WELL AT 99%. NON-VERBAL, OPENS EYES ONLY. ON TELE MONITOR, V PACING. HAS A LEFT CW PACEMAKER. ON GTF AT 85 ML/HR. HAS A RIGHT FA MIDLINE, TKO. DC TODAY, SUPERINTENDENT CONTAINER TERMINAL TIME AT 0830. DC TO [facility], WILL CALL TO GIVE REPORT. BED LOCKED AND IN LOWEST POSITION. CALL LIGHT WITHIN REACH. WILL CONTINUE TO MONITOR CLOSELY
--- NOTE | 2019-08-16 07:10 | NUR ---
RN CLOSING NOTES: PATIENT IN NO ACUTE DISTRESS. TOLERATING CURRENT VENT TRACH SETTINGS. NO SOB. NO S/S OF PAIN. NO FACIAL GRIMACING. DC TODAY AT 0830. PATIENT IN STABLE CONDITION. ENDORSED TO AM SHIFT NURSE FOR CONTINUITY OF CARE.
[2019-08-16 08:00] VITALS: BP 137/54
[2019-08-16] MEDS: COLOSTRUM PO SCH (08:39)
[2019-08-16] MEDS: ASPIRIN 81 MG TAB.CHEW GT SCH (08:40)
[2019-08-16] MEDS: COQ10 GT SCH (08:40)
[2019-08-16] MEDS: MULTIVITAMINS,THERAGRAN 1 UDTAB TABLET GT SCH (08:40)
[2019-08-16] MEDS: CARNITINE 500 MG GT SCH (08:40)
[2019-08-16] MEDS: LEVETIRACETAM (250 MG) 250 MG TABLET PO SCH (08:42)
[2019-08-16] MEDS: Z GUARD REMEDY 2 OZ OINT TP SCH (09:00)
[2019-08-16] MEDS: THERAHONEY GEL 1.5 OZ TUBE TP SCH (09:00)
[2019-08-16] MEDS: CLOTRIMAZOLE 1% 15 GM TUBE TP SCH (09:00)
[2019-08-16] MEDS: MEDIHONEY TP SCH (09:00)
--- NOTE | 2019-08-16 09:54 | NUR ---
RN NOTE PATIENT'S WOUND TX HAS NOT BEEN DONE. PATIENT WAS PICKED UP BY AMBULANCE FOR SNF TRANSFER
--- NOTE | 2019-08-16 09:55 | NUR ---
INCINERATOR PLANT GENERAL SUPERVISOR NOTE REPORT GIVEN TO CHALINO MOORE FROM [facility]. AMBULANCE AT BEDSIDE. DAUGHTER REFUSED TO REMOVE THE IV LINE FOR EMERGENCY PURPOSES DURING TRANSFER. AND WILL DECIDE IF SHE WANTS TO REMOVE IT AT THE FACILITY. PATIENT HAS GT. DAUGHTER ASKED FOR A FEW BAGS FOR THE PATIENT'S FEEDING AND A BRAND NEW THERAHONEY TO BE USED IN THE FACILITY. ALSO, WAS GIVEN THE PATIENT'S REGULAR INSULIN AND LANTUS TO THE DAUGHTER. PATIENT IS AWAKE, OPENS EYES. NON VERBAL. ON VENT, SATING WELL AT 100%. REPORT GIVEN TO EMT AND RT FOR ABELINO. ALL MORNING MEDS GIVEN TO THE PATIENT. WOUND TX DONE THIS AM BY NOC SHIFT AND WOUND PICTURES WELL.
== END 2019-08-16 09:57 | DRG 130 ==
LOC: ER 20:09 → TELE1 22:31 → EDBD 22:31
PROVIDERS: ADMIT Nurse Practitioner Acute Care; ATTEND Student in an Organized Health Care Education/Training Program
PROC: 5A1955Z Respiratory Ventilation, Greater than 96 Consecutive Hours (ICD-10-PCS; principal; 2019-07-20)
DX: J15.1 Pneumonia due to Pseudomonas (principal); E43 Unspecified severe protein-calorie malnutrition; G93.41 Metabolic encephalopathy; L89.154 Pressure ulcer of sacral region, stage 4; D61.818 Other pancytopenia; J96.21 Acute and chronic respiratory failure with hypoxia; E22.2 Syndrome of inappropriate secretion of antidiuretic hormone; Z93.0 Tracheostomy status; D68.69 Other thrombophilia; Z99.11 Dependence on respirator [ventilator] status; R53.2 Functional quadriplegia; Z93.1 Gastrostomy status; I25.10 Atherosclerotic heart disease of native coronary artery without angina pectoris; Z95.0 Presence of cardiac pacemaker; D63.8 Anemia in other chronic diseases classified elsewhere; I50.32 Chronic diastolic (congestive) heart failure; I67.2 Cerebral atherosclerosis; L30.4 Erythema intertrigo; L98.8 Other specified disorders of the skin and subcutaneous tissue; Z87.01 Personal history of pneumonia (recurrent); Z86.73 Personal history of transient ischemic attack (TIA), and cerebral infarction without residual deficits; Z87.440 Personal history of urinary (tract) infections; R13.10 Dysphagia, unspecified; E88.09 Other disorders of plasma-protein metabolism, not elsewhere classified; M62.50 Muscle wasting and atrophy, not elsewhere classified, unspecified site; F09 Unspecified mental disorder due to known physiological condition; Z68.23 Body mass index [BMI] 23.0-23.9, adult; L90.5 Scar conditions and fibrosis of skin; N30.01 Acute cystitis with hematuria; I82.513 Chronic embolism and thrombosis of femoral vein, bilateral; I82.531 Chronic embolism and thrombosis of right popliteal vein; S60.420A Blister (nonthermal) of right index finger, initial encounter; X58.XXXA Exposure to other specified factors, initial encounter; Y93.9 Activity, unspecified; Y92.89 Other specified places as the place of occurrence of the external cause; G40.901 Epilepsy, unspecified, not intractable, with status epilepticus; D72.1 Eosinophilia; I11.0 Hypertensive heart disease with heart failure; J98.11 Atelectasis; Z74.01 Bed confinement status; Z79.01 Long term (current) use of anticoagulants; Z79.82 Long term (current) use of aspirin; Z95.5 Presence of coronary angioplasty implant and graft; I48.91 Unspecified atrial fibrillation; E11.51 Type 2 diabetes mellitus with diabetic peripheral angiopathy without gangrene; Z79.4 Long term (current) use of insulin; L97.529 Non-pressure chronic ulcer of other part of left foot with unspecified severity; L97.819 Non-pressure chronic ulcer of other part of right lower leg with unspecified severity; L97.419 Non-pressure chronic ulcer of right heel and midfoot with unspecified severity; L97.519 Non-pressure chronic ulcer of other part of right foot with unspecified severity; I70.245 Atherosclerosis of native arteries of left leg with ulceration of other part of foot; I70.238 Atherosclerosis of native arteries of right leg with ulceration of other part of lower leg; I70.234 Atherosclerosis of native arteries of right leg with ulceration of heel and midfoot; I70.235 Atherosclerosis of native arteries of right leg with ulceration of other part of foot
CPT/HCPCS: 31720; 36415; 36600; 70450-TC; 70551-TC; 71045-TC; 71250-TC; 73110; 80048-TC; 80053-TC; 80061-TC; 80076-TC; 80202-TC; 81000-TC; 82803-TC; 82962-TC; 83540-TC; 83735-TC; 83880; 83935-TC; 84100-TC; 84300-TC; 84443-TC; 84484-TC; 84550-TC; 85025-TC; 85378-TC; 85610-TC; 87040-TC; 87070-TC; 87081-TC; 87086-TC; 87186-TC; 93307-TC; 93308-TC; 93970-TC; 94002-TC; 94003-TC; 94640-TC; 94664-TC; 94760-TC; 94762-TC; 94799-TC; 95819-TC; 99082-TC; A4216; A4217; A4623; A6248; A6253; A6403; A7526; G0378; J0360; J0692; J0696; J1650; J1815; J1940; J1953; J2060; J3370; J7030; J7050; J7060; Q9967